=== PATIENT | male | born 1945 | race Caucasian/White ===

== ENCOUNTER 2018-04-11 01:27 | Emergency (ER) | payer OTHER ==
[2018-04-11] MEDS ORDERED: Magnesium Sulfate 2 GM IV* 2 GM/50 ML BAG IVPB ONE (02:17)
[2018-04-11] MEDS ORDERED: Albuterol/Ipratropium NEB.SOL* Albuterol 2.5 MG/Ipratropium 0.5 MG 3 ML INH ONE (02:17)
[2018-04-11] MEDS ORDERED: methylPREDNISolone 125 MG* 2 ML VIAL IV ONE (02:17)
[2018-04-11] MEDS ORDERED: Albuterol 2.5 MG/3 ML NEB.SOL* (0.083%) INH ONE (02:17)
[2018-04-11 03:00] LABS: ABS Basophils 0.2 10^3/ul (0-0.2); ABS Eosinophils 0.9 10^3/ul (0-0.6); ABS Lymphocytes 0.6 10^3/ul (1.0-4.8); ABS Monocytes 0.8 10^3/ul (0-0.8); ABS Neutrophils 4.5 10^3/ul (1.5-7.7); ABS Nucleated RBC 0 10^3/ul; Hematocrit 44 % (42-52); Hemoglobin 14.7 g/dl (14.0-18.0); Lymphocyte % 9.1 % (25-47); Mean Corpuscular HGB Conc 34 g/dl (31-36); Mean Corpuscular Hemoglobin 29 pg (27-31); Mean Corpuscular Volume 87 fL (80-94); Mean Platelet Volume 9.6 um3 (7.4-10.4); Nucleated Red Blood Cells % 0; Platelet Count 201 10^3/ul (150-450); Red Blood Count 5.01 10^6/ul (4.00-5.40); Red Cell Distribution Width 16 % (10.5-15); White Blood Count 7.1 10^3/ul (3.5-10.8)
[2018-04-11] MEDS ORDERED: Albuterol 2.5 MG/3 ML NEB.SOL* (0.083%) INH SCH (03:00)
[2018-04-11 03:05] LABS: INR 0.94 (0.77-1.02)
[2018-04-11 03:15] LABS: EGFR Non-African American 124.8 (>60)
--- NOTE | 2018-04-11 03:35 | ED ---
Shortness of Breath - HPI Summary HPI Summary: This is scribe Daniel Black documenting for attending Shira Rivero M.D. Patient is a 72 y/o M w/ c/o SOB onsetting 1600 on 04/10/18. Patient denies fever or pain. PMHx of right spontaneous pneumothorax, has agent orange in left lung, , COPD, lung CA is reported. On triage, nothing is noted to aggravate/ alleviate Sx. He states he is a current smoker. Home medications and allergies reviewed. I, Dr. Rivero, personally performed the services described in this documentation as scribed in my presence and it is both accurate and complete. - History of Current Complaint Chief Complaint: EDShortnessOfBreath Time Seen by Provider: 04/11/18 02:06 Hx Obtained From: Patient Onset/Duration: Lasting Hours - onset 04/10 at 1600 Current Severity: None - pain is denied Aggrevating Factors: Nothing Alleviating Factors: Nothing - Allergy/Home Medications Allergies/Adverse Reactions: Allergies Allergy/AdvReac Type Severity Reaction Status Date / Time prednisone Allergy Swelling Verified 04/11/18 01:29 Home Medications: Home Medications Aspirin 325 mg PO DAILY 04/11/18 [History Confirmed 04/11/18] Atorvastatin* [Lipitor*] 5 mg PO DAILY 04/11/18 [History Confirmed 04/11/18] Finasteride [Proscar] 5 mg PO DAILY 04/11/18 [History Confirmed 04/11/18] Hydroxychloroquine Sulfate 200 mg PO BID 04/11/18 [History Confirmed 04/11/18] Levothyroxine Sodium [Synthroid] 150 mcg PO DAILY 04/11/18 [History Confirmed ] Tamsulosin HCl 0.4 mg PO DAILY 04/11/18 [History Confirmed 04/11/18] PMH/Surg Hx/FS Hx/Imm Hx Respiratory History: Reports: Hx Asthma, Hx Chronic Obstructive Pulmonary Disease (COPD) Sensory History: Denies: Hx Legally Blind Infectious Disease History: No Infectious Disease History: Denies: Traveled Outside the [place] in Last 30 Days - Family History Known Family History: Negative: Blood Disorder - Social History Alcohol Use: None Substance Use Type: Reports: None Smoking Status (MU): Heavy Every Day Tobacco Smoker Review of Systems Negative: Fever Positive: Shortness Of Breath All Other Systems Reviewed And Are Negative: Yes Physical Exam - Summary Physical Exam Summary: VITAL SIGNS: Reviewed. GENERAL: Patient is a well-developed and nourished male who is lying comfortable in the stretcher. Patient is not in any acute respiratory distress. HEAD AND FACE: No signs of trauma. No ecchymosis, hematomas or skull depressions. No sinus tenderness. EYES: PERRLA, EOMI x 2, No injected conjunctiva, no nystagmus. EARS: Hearing grossly intact. Ear canals and tympanic membranes are within normal limits. MOUTH: Oropharynx within normal limits. NECK: Supple, trachea is midline, no adenopathy, no JVD, no carotid bruit, no c- spine tenderness, neck with full ROM. CHEST: Symmetric, no tenderness at palpation LUNGS: Decreased breath sounds bilaterally, expiratory wheezing bilaterally. No crackles. CVS: Regular rate and rhythm, S1 and S2 present, no murmurs or gallops appreciated. ABDOMEN: Soft, non-tender. No signs of distention. No rebound no guarding, and no masses palpated. Bowel sounds are normal. EXTREMITIES: FROM in all major joints, no edema, no cyanosis or clubbing. NEURO: Alert and oriented x 3. No acute neurological deficits. Speech is normal and follows commands. SKIN: Dry and warm Triage Information Reviewed: Yes Vital Signs On Initial Exam: Initial Vitals Temp Pulse Resp BP Pulse Ox 98.7 F 71 22 168/83 94 04/11/18 01:30 04/11/18 01:30 04/11/18 01:30 04/11/18 01:30 04/11/18 01:30 Vital Signs Reviewed: Yes Diagnostics - Vital Signs Vital Signs Temp Pulse Resp BP Pulse Ox 04/11/18 03:08 60 20 100 04/11/18 03:00 65 20 96 04/11/18 02:21 70 16 147/89 94 04/11/18 02:00 69 21 94 04/11/18 01:52 20 04/11/18 01:51 69 21 166/83 94 04/11/18 01:30 98.7 F 71 22 168/83 94 - Laboratory Lab Results: Lab Results 04/11/18 04/11/18 04/11/18 Range/Units 02:43 02:43 02:43 WBC 7.1 (3.5-10.8) 10^3/ul RBC 5.01 (4.00-5.40) 10^6/ul Hgb 14.7 (14.0-18.0) g/dl Hct 44 (42-52) % MCV 87 (80-94) fL MCH 29 (27-31) pg MCHC 34 (31-36) g/dl RDW 16 H (10.5-15) % Plt Count 201 (150-450) 10^3/ul MPV 9.6 (7.4-10.4) um3 Neut % (Auto) 63.7 (38-83) % Lymph % (Auto) 9.1 L (25-47) % Redwood % (Auto) 12.0 H (0-7) % Eos % (Auto) 13.0 H (0-6) % Baso % (Auto) 2.2 H (0-2) % Absolute Neuts (auto) 4.5 (1.5-7.7) 10^3/ul Absolute Lymphs (auto) 0.6 L (1.0-4.8) 10^3/ul Absolute Monos (auto) 0.8 (0-0.8) 10^3/ul Absolute Eos (auto) 0.9 H (0-0.6) 10^3/ul Absolute Basos (auto) 0.2 (0-0.2) 10^3/ul Absolute Nucleated RBC 0 10^3/ul Nucleated RBC % 0 INR (Anticoag Therapy) 0.94 (0.77-1.02) APTT 36.0 (26.0-36.3) seconds Sodium 141 (135-145) mmol/L Potassium 3.7 (3.5-5.0) mmol/L Chloride 109 (101-111) mmol/L Carbon Dioxide 27 (22-32) mmol/L Anion Gap 5 (2-11) mmol/L BUN 21 (6-24) mg/dL Creatinine 0.63 L (0.67-1.17) mg/dL Est GFR ( Amer) 151.1 (>60) Est GFR (Non-Af Amer) 124.8 (>60) BUN/Creatinine Ratio 33.3 H (8-20) Glucose 101 H (70-100) mg/dL Lactic Acid (0.5-2.0) mmol/L Calcium 9.3 (8.6-10.3) mg/dL Total Bilirubin 0.30 (0.2-1.0) mg/dL AST 16 (13-39) U/L ALT 9 (7-52) U/L Alkaline Phosphatase 67 (34-104) U/L Troponin I 0.00 (<0.04) ng/mL C-Reactive Protein 4.23 (<8.01) mg/L Total Protein 6.9 (6.4-8.9) g/dL Albumin 4.1 (3.2-5.2) g/dL Globulin 2.8 (2-4) g/dL Albumin/Globulin Ratio 1.5 (1-3) 04/11/18 Range/Units 02:43 WBC (3.5-10.8) 10^3/ul RBC (4.00-5.40) 10^6/ul Hgb (14.0-18.0) g/dl Hct (42-52) % MCV (80-94) fL MCH (27-31) pg MCHC (31-36) g/dl RDW (10.5-15) % Plt Count (150-450) 10^3/ul MPV (7.4-10.4) um3 Neut % (Auto) (38-83) % Lymph % (Auto) (25-47) % Redwood % (Auto) (0-7) % Eos % (Auto) (0-6) % Baso % (Auto) (0-2) % Absolute Neuts (auto) (1.5-7.7) 10^3/ul Absolute Lymphs (auto) (1.0-4.8) 10^3/ul Absolute Monos (auto) (0-0.8) 10^3/ul Absolute Eos (auto) (0-0.6) 10^3/ul Absolute Basos (auto) (0-0.2) 10^3/ul Absolute Nucleated RBC 10^3/ul Nucleated RBC % INR (Anticoag Therapy) (0.77-1.02) APTT (26.0-36.3) seconds Sodium (135-145) mmol/L Potassium (3.5-5.0) mmol/L Chloride (101-111) mmol/L Carbon Dioxide (22-32) mmol/L Anion Gap (2-11) mmol/L BUN (6-24) mg/dL Creatinine (0.67-1.17) mg/dL Est GFR ( Amer) (>60) Est GFR (Non-Af Amer) (>60) BUN/Creatinine Ratio (8-20) Glucose (70-100) mg/dL Lactic Acid 0.7 (0.5-2.0) mmol/L Calcium (8.6-10.3) mg/dL Total Bilirubin (0.2-1.0) mg/dL AST (13-39) U/L ALT (7-52) U/L Alkaline Phosphatase (34-104) U/L Troponin I (<0.04) ng/mL C-Reactive Protein (<8.01) mg/L Total Protein (6.4-8.9) g/dL Albumin (3.2-5.2) g/dL Globulin (2-4) g/dL Albumin/Globulin Ratio (1-3) Result Diagrams: 04/11/18 02:43 04/11/18 02:43 Lab Statement: Any lab studies that have been ordered have been reviewed, and results considered in the medical decision making process. - Radiology CXR Xray Interpretation: No Acute Changes Radiology Interpretation Completed By: ED Physician - No acute processes, pending official report. - EKG 0136 Cardiac Rate: NL - Rate of 75 BPM EKG Rhythm: Sinus Rhythm EKG Interpretation: Normal axis. Normal interval. No ischemic changes. Re-Evaluation - Re-Evaluation First Eval Re-Evaluation Time: 03:53 Change: Improved Comment: Patient Sx have improved and he will be discharged to home. Follow up plan of seeing PCP 1-2 days was agreed upon by patient. Course/Dx - Course Assessment/Plan: Patient is a 72 y/o M w/ c/o SOB onsetting 1600 on 04/10/18. Patient denies fever or pain. PMHx of right spontaneous pneumothorax, has agent orange in left lung, , COPD, lung CA is reported. On triage, nothing is noted to aggravate/alleviate Sx. He states he is a current smoker. Home medications and allergies reviewed. Physical exam showed Decreased breath sounds bilaterally , expiratory wheezing bilaterally CXR was negative, EKG normal. During ED course , patient was given methylprednisolone sodium succinate 125 mg IV ED ONCE, magnesium sulfate 2 gm in 50 mls @ 50 mls/hr IVPB ED ONCE, albuterol/ Ipratropium 1 neb INH ED ONCE, albuterol 2.5 mg INH ED ONCE. Labs had no abnormal findings. Patient reports feeling better at 0353. He was discharged to home with Dx of COPD exacerbation. Patient was prescribed Albuterol HFA INHALER * [Ventolin HFA Inhaler*] 2 puff INH Q4H PRN #1 mdi PRN Reason: Sob/Wheezing, predniSONE TAB* [Deltasone TAB*] 50 mg PO DAILY #5 tab, Spiriva Inhaler DEVICE* [Tiotropium Inhaler DEVICE*] 0 inh INH BID #1 device. He will follow up with PCP in 1-2 days. He is agreeable with plan. Discharge - Sign-Out/Discharge Documenting (check all that apply): Patient Departure - Discharge Plan Condition: Stable Disposition: HOME Prescriptions: Albuterol HFA INHALER* [Ventolin HFA Inhaler*] 2 puff INH Q4H PRN #1 mdi PRN Reason: Sob/Wheezing predniSONE TAB* [Deltasone TAB*] 50 mg PO DAILY #5 tab Spiriva Inhaler DEVICE* [Tiotropium Inhaler DEVICE*] 0 inh INH BID #1 device Patient Education Materials: COPD (Chronic Obstructive Pulmonary Disease) (ED) Referrals: Marlyn Arnett [Primary Care Provider] - 1 Day Additional Instructions: Follow up with primary care provider tomorrow. Return to ED for any new or worsening symptoms. - Billing Disposition and Condition Condition: STABLE Disposition: Home
[2018-04-11 03:50] VITALS: BP 154/86
[2018-04-11] MEDS ORDERED: Albuterol HFA INHALER* 8 gm MDI INH SCH (04:00)
--- NOTE | 2018-04-11 08:02 | RAD ---
INDICATION: Shortness of breath. COMPARISON: None. TECHNIQUE: Single AP portable view of the chest was obtained. FINDINGS: Image quality is compromised due to the relative inferiority of a portable chest x-ray. The heart and mediastinum exhibit normal size and contour. The lungs appear hyperaerated in the AP view. There is a small degree of bibasilar costophrenic angle blunting which could indicate small pleural effusions. Otherwise the lungs are grossly clear. Visualized bones are normal for the patient's age. IMPRESSION: Appearance of chest x-ray on portable AP view only could be consistent with chronic obstructive pulmonary disease, possibly with trace bibasilar pleural effusions. R2
== END 2018-04-11 03:49 | disposition home or self-care (01) ==
LOC: ED 01:27
DX: J44.1 Chronic obstructive pulmonary disease with (acute) exacerbation (principal); F17.200 Nicotine dependence, unspecified, uncomplicated; Z77.098 Contact with and (suspected) exposure to other hazardous, chiefly nonmedicinal, chemicals; Z85.118 Personal history of other malignant neoplasm of bronchus and lung; Z87.09 Personal history of other diseases of the respiratory system
CPT/HCPCS: 36415; 71045; 80053; 83605; 84484; 85025; 85610; 85730; 86140; 87040; 93005; 96374; 96375; 99283; A9270-GY; J2930; J3475

== ENCOUNTER 2018-04-23 17:58 | Inpatient (IN) | payer MEDICARE, OTHER ==
[2018-04-23] MEDS ORDERED: Albuterol/Ipratropium NEB.SOL* Albuterol 2.5 MG/Ipratropium 0.5 MG 3 ML ONE (18:13)
--- NOTE | 2018-04-23 18:15 | ED ---
Shortness of Breath - HPI Summary HPI Summary: Pt seen immediately upon arrival due to SOB. The pt is a 72 y/o male with a PMHx of Lung CA BIBA to [facility] c/o SOB since 04/17 worsened 17:[address] Rivero saw the pt at [facility] on 04/11/2018 for SOB and pt was DC'd home on 5 d course of prednisone (which is listed as an allergy upon arrival, and changed at [facility] today). The pt was diagnosed with lung CA in July 2017 at the [facility] and had a pneumothorax 5 years ago. He receives his routine medical care from the [place]. Had to go to [facility] for radiation for his lung CA from the [place]. Pt is not on home O2 and does not have home nebulizer. Does have inhalers. Spiriva was prescribed by Dr. Rivero on 04/11/18. He notes SOB, dyspnea, and diaphoresis but denies TAMAYO and CP. The pt is a heavy smoker and continues to smoke. Pt was exposed to [place] in [facility]. Pt lives with his son. Pt's son and daughter are present upon admission to the ED. Pt is questioned about code status with son and daughter present and he wishes to remain a full code. . He was given 2 Duonebs prior to arrival via EMS and remains SOB. Pt did not tolerate vapotherm, tried by respiratory therapy, also present immediately upon patient arrival. Home Medications Medication Instructions Recorded Confirmed Type Albuterol HFA INHALER* [Ventolin 2 puff INH Q4H PRN #1 mdi 04/11/18 Rx HFA Inhaler*] Aspirin 325 mg PO DAILY 04/11/18 04/11/18 History Atorvastatin* [Lipitor*] 5 mg PO DAILY 04/11/18 04/11/18 History Finasteride [Proscar] 5 mg PO DAILY 04/11/18 04/11/18 History Hydroxychloroquine Sulfate 200 mg PO BID 04/11/18 04/11/18 History Levothyroxine Sodium [Synthroid] 150 mcg PO DAILY 04/11/18 04/11/18 History Spiriva Inhaler DEVICE* 0 inh INH BID #1 device 04/11/18 Rx [Tiotropium Inhaler DEVICE*] Tamsulosin HCl 0.4 mg PO DAILY 04/11/18 04/11/18 History predniSONE TAB* [Deltasone TAB*] 50 mg PO DAILY #5 tab 04/11/18 Rx Vital Signs: Temp Pulse Resp BP Pulse Ox 97.9 F 85 30 178/93 98 04/23/18 18:01 04/23/18 18:01 04/23/18 18:01 04/23/18 18:01 04/23/18 18:01 - History of Current Complaint Chief Complaint: EDShortnessOfBreath Time Seen by Provider: 04/23/18 18:03 Hx Obtained From: Patient, Family/[employer] - pt's son and daughter, EMS Onset/Duration: Lasting Days - 6 days, Still Present, Worse Since - 17:15 today Timing: Constant Current Severity: Severe Dyspnea At: Rest Aggrevating Factors: Movement Alleviating Factors: Other - duoneb x 2 Associated Signs & Symptoms: Negative - TAMAYO, CP, Cough (Nonproductive), Diaphoresis - Risk Factors Pulmonary Embolism: Malignancy - Allergy/Home Medications Allergies/Adverse Reactions: Allergies Allergy/AdvReac Type Severity Reaction Status Date / Time amoxicillin AdvReac Joint Pain Verified 04/23/18 21:47 Home Medications: Home Medications Levothyroxine TAB* [Synthorid 112 MCG TAB*] 112 mcg PO DAILY 04/24/18 [History Confirmed 04/24/18] PMH/Surg Hx/FS Hx/Imm Hx Previously Healthy: No Endocrine/Hematology History: Reports: Hx Thyroid Disease Respiratory History: Reports: Hx Asthma, Hx Chronic Obstructive Pulmonary Disease (COPD), Hx Lung Cancer - Jul 2017, s/p radiation at [facility] , Other Respiratory Problems/Disorders - Pneumothorax - 5 years ago; still smokes Apr 2018 Sensory History: Denies: Hx Legally Blind Opthamlomology History: Denies: Hx Legally Blind - Cancer History Cancer Type, Location and Year: Lung CA diagnosed in July 2017 at the [facility]. Hx Radiation Therapy: Yes Hx Palliative Cancer Treatment: No - Surgical History Surgery Procedure, Year, and Place: thyroidectomy. appendectomy Infectious Disease History: No Infectious Disease History: Denies: Traveled Outside the [place] in Last 30 Days - Family History Known Family History: Positive: Other - Colon CA-mother Negative: Cardiac Disease, Blood Disorder - Social History Occupation: Retired Lives: With Family Alcohol Use: None Substance Use Type: Reports: None Smoking Status (MU): Heavy Every Day Tobacco Smoker Type: Cigarettes Review of Systems Positive: Skin Diaphoresis Negative: Chest Pain Positive: Shortness Of Breath, Other - Positive: Dyspnea at rest Gastrointestinal: Negative Musculoskeletal: Negative Skin: Negative Negative: Headache Psychological: Normal All Other Systems Reviewed And Are Negative: Yes Physical Exam - Summary Physical Exam Summary: Appearance: ill-appearing, no pain distress, thin, COPD habitus, pursed lip breathing, access muscs of respiration, speaks in short bursts Skin: Warm, color reflects adequate perfusion, dry Head: Normal Head/Face inspection, atraumatic Eyes: Conjunctiva clear ENT: Normal inspection, pharynx clear Neck: Supple, no nodes, no JVD Respiratory: decreased BS throughout, retractions, abdominal muscs used for respiration, moderate respiratory distress Cardio: RRR, No murmur, pulses normal, brisk capillary refill Abdomen: Soft, nontender Bowel sounds: Present Musculoskeletal: Strength Intact/ROM intact, no calf tenderness, no edema. Psychological: Normal Neuro: Alert, muscle tone normal, no focal deficit Triage Information Reviewed: Yes Vital Signs On Initial Exam: Initial Vitals Temp Pulse Resp BP Pulse Ox 97.9 F 85 30 178/93 92 04/23/18 18:01 04/23/18 18:01 04/23/18 18:01 04/23/18 18:01 04/23/18 18:01 Vital Signs Reviewed: Yes Diagnostics - Vital Signs Vital Signs Temp Pulse Resp BP Pulse Ox 04/23/18 18:01 97.9 F 85 30 178/93 92 - Laboratory Result Diagrams: 04/23/18 18:40 04/24/18 06:19 Lab Statement: Any lab studies that have been ordered have been reviewed, and results considered in the medical decision making process. - Radiology CXR Radiology Interpretation Completed By: ED Physician - no acute change compared with 04/11/18 - EKG 1841 Cardiac Rate: NL EKG Rhythm: Sinus Rhythm ST Segment: Non-Specific Ectopy: None EKG Interpretation: nl AVIVCT, nl QTC, no acute changes EKG Comparison: No Significant Change - c/w 04/11/18 Re-Evaluation - Re-Evaluation First Eval Re-Evaluation Time: 20:15 Change: Unchanged Comment: Pt still with pursed lip breathing and accessory muscs of respiration despite 3 duonebs total, and supplemental O2 (pt prefers face mask, declines vapotherm) and IV steroids. O2 DC'd and O2 sats decrease from 99 to 88 in less than 5 minutes. O2 re-applied. Pt to be admitted. Course/Dx - Course Course Of Treatment: 72 yo M with hx COPD, agent orange exposure, still smokes, lung cancer [facility] [facility] with acute SOB, and has no improvement with 3 duonebs, IV steroids and oxygen. Pt has no home O2 or nebulizer. Is admitted for further evaluation and treatment. No sign of sepsis or pneumonia. Troponin is elevated, but EKG is unchanged and pt has a twinge of right sided chest pain that corresponds with the location of his cancer, likely demand ischemia. Dr. Rodríguez accepts for admission. - Diagnoses Differential Diagnosis/HQI/PQRI: Positive: Bronchitis, Chest Wall Pain, COPD Exacerbation, MD, Pneumonia, Pneumothorax, Pulmonary Embolism, Pulmonary Edema Provider Diagnoses: COPD exacerbation, Elevated troponin, Lung cancer, Acute and chronic respiratory failure with hypoxia, Tobacco abuse disorder - Physician Notifications Discussed Care of Patient With: Zach Rodríguez - Hospitalist Time Discussed With Above Provider: 20:45 Instructed by Provider To: Other - accepts for admission Discharge - Sign-Out/Discharge Documenting (check all that apply): Patient Departure - admit - Discharge Plan Condition: Improved Disposition: ADMITTED TO [facility] - Billing Disposition and Condition Condition: IMPROVED Disposition: Admitted to [facility] - Attestation Statements Document Initiated by Scribe: Yes Documenting Scribe: Jihan Gonzalez Provider For Whom Tgibcristela is Documenting (Include Credential): Nasrin Reynoso MD Scribe Attestation: Jihan Blanco , scribed for Nasrin Reynoso MD on 04/26/18 at 1603. Scribe Documentation Reviewed: Yes Provider Attestation: The documentation as recorded by the Jihan rosario accurately reflects the service I personally performed and the decisions made by me, Nasrin Reynoso MD
[2018-04-23] MEDS ORDERED: Albuterol/Ipratropium NEB.SOL* Albuterol 2.5 MG/Ipratropium 0.5 MG 3 ML INH ONE (18:16)
[2018-04-23] MEDS ORDERED: methylPREDNISolone 125 MG* 2 ML VIAL IV ONE (18:40)
[2018-04-23 18:56] LABS: ABS Basophils 0.2 10^3/ul (0-0.2); ABS Eosinophils 0.9 10^3/ul (0-0.6); ABS Lymphocytes 0.8 10^3/ul (1.0-4.8); ABS Monocytes 0.9 10^3/ul (0-0.8); ABS Neutrophils 7.7 10^3/ul (1.5-7.7); ABS Nucleated RBC 0 10^3/ul; Eosinophil % 8.7 % (0-6); Hematocrit 46 % (42-52); Lymphocyte % 7.4 % (25-47); Mean Corpuscular HGB Conc 33 g/dl (31-36); Mean Corpuscular Hemoglobin 29 pg (27-31); Mean Corpuscular Volume 88 fL (80-94); Mean Platelet Volume 9.6 um3 (7.4-10.4); Nucleated Red Blood Cells % 0.1; Platelet Count 203 10^3/ul (150-450); Red Blood Count 5.16 10^6/ul (4.00-5.40); Red Cell Distribution Width 16 % (10.5-15); White Blood Count 10.4 10^3/ul (3.5-10.8)
[2018-04-23 19:05] LABS: INR 0.95 (0.77-1.02)
[2018-04-23 19:09] LABS: EGFR Non-African American 112.4 (>60)
--- NOTE | 2018-04-23 21:12 | HP ---
H&P (Free Text) History and Physical: PCP: Jian Arnett Date/Time: 04/23/20182044 CC: SOB HPI: Mr Thomson is a 72YO male HX COPD, lung CA s/p radioTX, HLD, hypothyroidism, & BPH who was seen last Monday at [facility] for COPD and released. He reports ongoing wheeze until today when around 1615 he was driving to eat and develop rapidly worsening SOB. He has had a cough productive of thick pale yellow phlegm with darker brown areas, but no blood. He denies F/C, sweats, hemotysis, or other issues. He has felt a 'twinge' of chest discomfort over the R anterior chest correlating with the location of his lung tumor. This has had no increased SOB, sweats, N/V, or other issues associated. PMedHx lung CA s/p radioTX COPD HLD BPH hypothyroidism Ambulatory Orders Nursing to reconcile. Albuterol HFA INHALER* [Ventolin HFA Inhaler*] 2 puff INH Q4H PRN #1 mdi Atorvastatin* [Lipitor*] 5 mg PO DAILY 04/11/18 Finasteride [Proscar] 5 mg PO DAILY 04/11/18 Hydroxychloroquine Sulfate 200 mg PO BID 04/11/18 Levothyroxine Sodium [Synthroid] 115 mcg PO DAILY 04/11/18 Spiriva Inhaler DEVICE* [Tiotropium Inhaler DEVICE*] 0 inh INH BID #1 device 04/21 Tamsulosin HCl 0.4 mg PO DAILY 04/11/18 Allergies amoxicillin Adverse Reaction (Verified 04/23/18 21:47) Joint Pain PSurgHx thryroidectomy for hyperthyroidism appendectomy planned cataract extraction SocHx: 1PPD cigarettes for >50PYHX, no alcohol, or recreational drugs; , lives with his son; full code status FamHx: Mother: passed at 84 2nd colon CA; Father: passed at 79 of unknown cause ROS: as above, otherwise reviewed and all were negative vitals: Vital Signs Temp 36.6 C 04/23/18 18:01 Pulse 96 04/23/18 20:36 Resp 23 04/23/18 20:36 BP 148/77 04/23/18 20:36 Pulse Ox 90 04/23/18 20:36 Intake & Output 04/22/18 04/23/18 04/23/18 23:59 11:59 23:59 Weight 61.235 kg Constitutional: NAD, normally developed, well-nourished white male HEENM: atraumatic; sclera/conjunctiva: anicteric/clear; hearing: clinically intact; oropharynx: clear, mucosa tacky Neck: soft tissue: non-tender; thyroid: normal Pulmonary: diminished B with prominent mid- to end- expiratory and feliciano- inspiratory wheeze, fair to poor aeration, no accessory muscle use CV: RR/RR, normal S1S2, no carotid bruit, no jugular venous distention, 2+ B DP/ PT, no edema Abdominal: soft, non-distended, non-tender, no rebound/guarding/rigidity, normoactive bowel sounds, no hepatosplenomegaly or masses, no costovertebral angle tenderness Musculoskeletal: general: grossly intact, non-tender Integumental: normal appearance and texture of exposed skin Psychiatric orientation: AA&O to PPS affect: calm mood: cooperative eye contact: fair to poor content: reliable responses: timely insight: fair Testing: Lab Results 04/23/18 04/23/18 04/23/18 Range/Units 18:27 18:40 18:40 WBC 10.4 (3.5-10.8) 10^3/ul RBC 5.16 (4.00-5.40) 10^6/ul Hgb 15.0 (14.0-18.0) g/dl Hct 46 (42-52) % MCV 88 (80-94) fL MCH 29 (27-31) pg MCHC 33 (31-36) g/dl RDW 16 H (10.5-15) % Plt Count 203 (150-450) 10^3/ul MPV 9.6 (7.4-10.4) um3 Neut % (Auto) 74.2 (38-83) % Lymph % (Auto) 7.4 L (25-47) % [place] % (Auto) 8.2 H (0-7) % Eos % (Auto) 8.7 H (0-6) % Baso % (Auto) 1.5 (0-2) % Absolute Neuts (auto) 7.7 (1.5-7.7) 10^3/ul Absolute Lymphs (auto) 0.8 L (1.0-4.8) 10^3/ul Absolute Monos (auto) 0.9 H (0-0.8) 10^3/ul Absolute Eos (auto) 0.9 H (0-0.6) 10^3/ul Absolute Basos (auto) 0.2 (0-0.2) 10^3/ul Absolute Nucleated RBC 0 10^3/ul Nucleated RBC % 0.1 INR (Anticoag Therapy) 0.95 (0.77-1.02) APTT 30.9 (26.0-36.3) seconds D-Dimer, Quantitative < 200 (Less Than 230) ng/mL ABG pH 7.33 L (7.35-7.45) ABG pCO2 51 H (35-45) mmHg ABG pO2 155 H (80-100) mmHg ABG HCO3 24.9 (19-31) mmol/L ABG O2 Saturation 99.3 H (95-98) % ABG Base Excess 0.1 (-2.0-2.0) Sodium (135-145) mmol/L Potassium (3.5-5.0) mmol/L Chloride (101-111) mmol/L Carbon Dioxide (22-32) mmol/L Anion Gap (2-11) mmol/L BUN (6-24) mg/dL Creatinine (0.67-1.17) mg/dL Est GFR ( Amer) (>60) Est GFR (Non-Af Amer) (>60) BUN/Creatinine Ratio (8-20) Glucose (70-100) mg/dL Lactic Acid (0.5-2.0) mmol/L Calcium (8.6-10.3) mg/dL Total Bilirubin (0.2-1.0) mg/dL AST (13-39) U/L ALT (7-52) U/L Alkaline Phosphatase (34-104) U/L Total Creatine Kinase (10-223) U/L CK-MB (CK-2) (0.6-6.3) ng/mL Troponin I (<0.04) ng/mL C-Reactive Protein (<8.01) mg/L B-Natriuretic Peptide ( - 100) pg/mL Total Protein (6.4-8.9) g/dL Albumin (3.2-5.2) g/dL Globulin (2-4) g/dL Albumin/Globulin Ratio (1-3) Procalcitonin (<0.6) ng/mL 04/23/18 04/23/18 04/23/18 Range/Units 18:40 18:40 18:40 WBC (3.5-10.8) 10^3/ul RBC (4.00-5.40) 10^6/ul Hgb (14.0-18.0) g/dl Hct (42-52) % MCV (80-94) fL MCH (27-31) pg MCHC (31-36) g/dl RDW (10.5-15) % Plt Count (150-450) 10^3/ul MPV (7.4-10.4) um3 Neut % (Auto) (38-83) % Lymph % (Auto) (25-47) % [place] % (Auto) (0-7) % Eos % (Auto) (0-6) % Baso % (Auto) (0-2) % Absolute Neuts (auto) (1.5-7.7) 10^3/ul Absolute Lymphs (auto) (1.0-4.8) 10^3/ul Absolute Monos (auto) (0-0.8) 10^3/ul Absolute Eos (auto) (0-0.6) 10^3/ul Absolute Basos (auto) (0-0.2) 10^3/ul Absolute Nucleated RBC 10^3/ul Nucleated RBC % INR (Anticoag Therapy) (0.77-1.02) APTT (26.0-36.3) seconds D-Dimer, Quantitative (Less Than 230) ng/mL ABG pH (7.35-7.45) ABG pCO2 (35-45) mmHg ABG pO2 (80-100) mmHg ABG HCO3 (19-31) mmol/L ABG O2 Saturation (95-98) % ABG Base Excess (-2.0-2.0) Sodium 143 (135-145) mmol/L Potassium 3.8 (3.5-5.0) mmol/L Chloride 108 (101-111) mmol/L Carbon Dioxide 26 (22-32) mmol/L Anion Gap 9 (2-11) mmol/L BUN 13 (6-24) mg/dL Creatinine 0.69 (0.67-1.17) mg/dL Est GFR ( Amer) 136.0 (>60) Est GFR (Non-Af Amer) 112.4 (>60) BUN/Creatinine Ratio 18.8 (8-20) Glucose 108 H (70-100) mg/dL Lactic Acid 1.3 (0.5-2.0) mmol/L Calcium 9.2 (8.6-10.3) mg/dL Total Bilirubin 0.30 (0.2-1.0) mg/dL AST 17 (13-39) U/L ALT 10 (7-52) U/L Alkaline Phosphatase 69 (34-104) U/L Total Creatine Kinase 188 (10-223) U/L CK-MB (CK-2) 4.7 (0.6-6.3) ng/mL Troponin I 0.04 H* (<0.04) ng/mL C-Reactive Protein 3.27 (<8.01) mg/L B-Natriuretic Peptide 26 ( - 100) pg/mL Total Protein 7.0 (6.4-8.9) g/dL Albumin 4.0 (3.2-5.2) g/dL Globulin 3.0 (2-4) g/dL Albumin/Globulin Ratio 1.3 (1-3) Procalcitonin (<0.6) ng/mL 04/23/18 Range/Units 18:40 WBC (3.5-10.8) 10^3/ul RBC (4.00-5.40) 10^6/ul Hgb (14.0-18.0) g/dl Hct (42-52) % MCV (80-94) fL MCH (27-31) pg MCHC (31-36) g/dl RDW (10.5-15) % Plt Count (150-450) 10^3/ul MPV (7.4-10.4) um3 Neut % (Auto) (38-83) % Lymph % (Auto) (25-47) % [place] % (Auto) (0-7) % Eos % (Auto) (0-6) % Baso % (Auto) (0-2) % Absolute Neuts (auto) (1.5-7.7) 10^3/ul Absolute Lymphs (auto) (1.0-4.8) 10^3/ul Absolute Monos (auto) (0-0.8) 10^3/ul Absolute Eos (auto) (0-0.6) 10^3/ul Absolute Basos (auto) (0-0.2) 10^3/ul Absolute Nucleated RBC 10^3/ul Nucleated RBC % INR (Anticoag Therapy) (0.77-1.02) APTT (26.0-36.3) seconds D-Dimer, Quantitative (Less Than 230) ng/mL ABG pH (7.35-7.45) ABG pCO2 (35-45) mmHg ABG pO2 (80-100) mmHg ABG HCO3 (19-31) mmol/L ABG O2 Saturation (95-98) % ABG Base Excess (-2.0-2.0) Sodium (135-145) mmol/L Potassium (3.5-5.0) mmol/L Chloride (101-111) mmol/L Carbon Dioxide (22-32) mmol/L Anion Gap (2-11) mmol/L BUN (6-24) mg/dL Creatinine (0.67-1.17) mg/dL Est GFR ( Amer) (>60) Est GFR (Non-Af Amer) (>60) BUN/Creatinine Ratio (8-20) Glucose (70-100) mg/dL Lactic Acid (0.5-2.0) mmol/L Calcium (8.6-10.3) mg/dL Total Bilirubin (0.2-1.0) mg/dL AST (13-39) U/L ALT (7-52) U/L Alkaline Phosphatase (34-104) U/L Total Creatine Kinase (10-223) U/L CK-MB (CK-2) (0.6-6.3) ng/mL Troponin I (<0.04) ng/mL C-Reactive Protein (<8.01) mg/L B-Natriuretic Peptide ( - 100) pg/mL Total Protein (6.4-8.9) g/dL Albumin (3.2-5.2) g/dL Globulin (2-4) g/dL Albumin/Globulin Ratio (1-3) Procalcitonin < 0.1 (<0.6) ng/mL ECG, personally reviewed: NSR rate 93, no ischemia CXR, personally reviewed: stigmata of COPD, no acute process; unchanged compared to 04/11/2018 Impression: 72M presenting with COPD exacerbation DIAGNOSIS & PLAN Primary COPD exacerbation : albuterol : mometasone/formoterol : tiotropium : IV methylprednisolone : incentive spirometry : blood & sputum CXs : supplemental oxygen : smoking cessation, mod-high motivation : nicotine replacement : supportive care mildly elevated troponin : suspect 2nd troponin leak from demand : re-check at 6hours, telemetry Secondary lung CA s/p radioTX : continue outpatient surveillance HLD : continue atorvastatin BPH : continue finasteride & tamsulosin hypothyroidism : continue levothyroxine Admission Rational: Inpatient as without the above interventions the risk of impending adverse outcome is unacceptably high; inappropriate for the outpatient setting DVTp: SCDs & heparin SQ Code Status: full HCP: daughter, Kaci Schulte
[2018-04-23] MEDS ORDERED: Mouth Piece, Nicotine* 1 EACH CARTRIDGE INH PRN (22:08)
[2018-04-23] MEDS ORDERED: Albuterol 2.5 MG/3 ML NEB.SOL* (0.083%) INH PRN (22:08)
[2018-04-23] MEDS ORDERED: Acetaminophen TAB* 325 MG PO PRN (22:08)
[2018-04-23] MEDS ORDERED: Nicotine Inhaler* 10 MG AMP INH PRN (22:08)
[2018-04-23] MEDS ORDERED: Melatonin 3 MG TAB PO PRN (22:08)
[2018-04-23] MEDS ORDERED: Ondansetron ODT TAB* 4 MG PO PRN (22:10)
[2018-04-23] MEDS ORDERED: traMADol TAB* 50 MG PO PRN (22:10)
[2018-04-23] MEDS ORDERED: NS 0.9% 1000 ML* 1,000 ML IV SCH (22:15)
[2018-04-23] MEDS ORDERED: Spiriva Inhaler DEVICE* 1 EACH DEVICE SCH (23:00)
[2018-04-24] MEDS ORDERED: Benzonatate CAP* 100 MG PO PRN (01:24)
[2018-04-24] MEDS: Albuterol 2.5 MG/3 ML NEB.SOL* (0.083%) INH SCH ×4 (01:28→20:32)
[2018-04-24 01:40] LABS: EGFR Non-African American 140.1 (>60)
[2018-04-24] MEDS ORDERED: Albuterol 2.5 MG/3 ML NEB.SOL* (0.083%) INH PRN (04:30)
[2018-04-24] MEDS ORDERED: Morphine VIAL* 4 MG/ML VIAL (1 ml vial) IV PRN (04:54)
[2018-04-24] MEDS: Omeprazole CAP* 20 MG PO SCH (05:16)
[2018-04-24] MEDS: Heparin VIAL(*) 5000 UNITS/ML VIAL (FIVE THOUSAND) SUBCUT SCH ×3 (05:16→21:51)
[2018-04-24] MEDS ORDERED: methylPREDNISolone SOD 40 MG* 1 ML VIAL IV SCH (06:00)
[2018-04-24] MEDS ORDERED: LEVOTHYROXINE PO SCH (06:00)
--- NOTE | 2018-04-24 07:24 | RAD ---
INDICATION: Shortness of breath. COMPARISON: Comparison is made with a prior chest x-ray study from April 11, 2018. TECHNIQUE: A portable view of the chest was obtained. FINDINGS: Cardiac and mediastinal contours appear to be within normal limits. The lungs are hyperinflated and grossly clear. No pleural effusion is seen. IMPRESSION: FINDINGS CONSISTENT WITH COPD, NO EVIDENCE FOR ACUTE FINDING. R0
[2018-04-24] MEDS: Tiotropium CAP.INH* CAP.INH/18 MCG (USE ORDER SET !) INH SCH (08:32)
[2018-04-24] MEDS: Mometasone/Formoter 200/5 MDI INH SCH ×2 (08:33→20:33)
[2018-04-24] MEDS: Hydroxychloroquine TAB* 200 MG PO SCH ×2 (10:07→21:50)
[2018-04-24] MEDS: Tamsulosin CAP* 0.4 MG PO SCH (10:07)
[2018-04-24] MEDS: Atorvastatin* 10 MG TAB PO SCH (10:07)
[2018-04-24] MEDS: Levothyroxine TAB* 112 MCG TAB PO SCH (10:07)
[2018-04-24] MEDS: Finasteride TAB* 5 MG PO SCH (10:07)
[2018-04-24] MEDS: Docusate CAP* 100 MG PO SCH ×2 (10:07→21:50)
--- NOTE | 2018-04-24 13:02 | PN ---
Subjective Date of Service: 04/24/18 Interval History: Patient seen and examined at bedside. Denies fever, chills, shortness of breath (at baseline), chest discomfort, N/V/D. Pt states that he is feeling much better then he was yesterday when he came in. He states that over the last week he has been using his nebulizer up to every 1.5 hours. Tele: Sinus rhythm, rate 60-80's Family History: Unchanged from Admission Social History: Unchanged from Admission Past Medical History: Unchanged from Admission Objective Active Medications: Acetaminophen (Tylenol Tab*) 650 mg PO Q6H PRN Reason: FEVER/PAIN Albuterol (Ventolin 2.5 Mg/3 Ml Neb.Rafaela*) 2.5 mg INH RT.[id number] AWAKE JOSE Albuterol (Ventolin 2.5 Mg/3 Ml Neb.Rafaela*) 2.5 mg INH Q4H PRN Reason: SOB/ WHEEZING Atorvastatin Calcium (Lipitor*) 5 mg PO DAILY JOSE Benzonatate (Tessalon Cap*) 200 mg PO Q8H PRN Reason: COUGH Device (Nicotine Mouth Piece*) 1 each INH .USE WITH NICOTROL PRN Reason: CRAVING Device (Tiotropium Inhaler Device*) 1 each .SEE ORDER .USE w/ SPIRIVA CAPS JOSE Docusate Sodium (Colace Cap*) 200 mg PO BID JOSE Finasteride (Proscar Tab*) 5 mg PO DAILY JOSE Heparin Sodium (Porcine) (Heparin Vial(*)) 5,000 units SUBCUT Q8HR JOSE Hydroxychloroquine Sulfate (Plaquenil Tab*) 200 mg PO BID JOSE Sodium Chloride (Ns 0.9% 1000 Ml*) 1,000 mls @ 50 mls/hr IV PER RATE JOSE Levothyroxine Sodium (Synthroid Tab*) 112 mcg PO 0600 JOSE Melatonin (Melatonin) 3 mg PO BEDTIME PRN; Protocol Reason: Sleep Methylprednisolone Sodium Succinate (Solu-Medrol 40 Mg) 40 mg IV Q8H JOSE Mometasone Furoate/Formoterol Fumar (Dulera 200/5 Mdi*) 2 puff INH BID JOSE Morphine Sulfate (Morphine Vial*) 2 mg IV Q2H PRN Reason: air hunger Nicotine (Nicotine Inhaler*) 10 mg INH Q2H PRN Reason: CRAVING Omeprazole (Prilosec Cap*) 20 mg PO DAILY@0600 [facility] Ondansetron HCl (Zofran Odt Tab*) 4 mg PO Q6H PRN Reason: n/v Tamsulosin HCl (Flomax Cap*) 0.4 mg PO DAILY [facility] Tiotropium [place] (Spiriva Cap.Inh*) 1 cap INH DAILY [facility] Tramadol HCl (Ultram*) 50 mg PO Q6H PRN Reason: PAIN Vital Signs - 8 hr 04/24/18 04/24/18 04/24/18 05:14 07:11 07:38 Temperature 98.0 F Pulse Rate 57 Respiratory 22 18 20 Rate Blood Pressure 129/67 (mmHg) O2 Sat by Pulse 100 Oximetry 04/24/18 04/24/18 04/24/18 08:34 09:00 11:27 Temperature 98.9 F Pulse Rate 78 70 Respiratory 14 20 20 Rate Blood Pressure 128/77 (mmHg) O2 Sat by Pulse 90 99 Oximetry Oxygen Devices in Use Now: OxyMask - 3L Appearance: NAD, sitting up in bed Ears/Nose/Mouth/Throat: Mucous Membranes Moist Respiratory: Symmetrical Chest Expansion and Respiratory Effort, Clear to Auscultation - , diminished Cardiovascular: NL Sounds; No Murmurs; No JVD, RRR Abdominal: NL Sounds; No Tenderness; No Distention Extremities: No Edema Skin: No Rash or Ulcers Neurological: Alert and Oriented x 3, NL Muscle Strength and Tone Lines/Tubes/Other Access: Clean, Dry and Intact Peripheral IV - site benign Nutrition: Taking PO's Result Diagrams: 04/23/18 18:40 04/24/18 06:19 Assess/Plan/Problems-Billing Assessment: Mr. Edwards is a 72 yo male with PMH significant for lung cancer, COPD, HLD, BPH and hypothyroidism who presented to the emergency room with complaints of shortness of breath. - Patient Problems (1) COPD exacerbation Code(s): J44.1 - CHRONIC OBSTRUCTIVE PULMONARY DISEASE W (ACUTE) EXACERBATION SNOMED Code(s): 773867039 Comment: - Afebrile, no lekocytosis - Blood cultures, pending - Sputum culture, pending - Supplemental O2 PRN, will try to wean - Continue supportive care and nicotine replacement - Continue Dulera, albuterol, spiriva, methylprednisone (2) Elevated troponin Code(s): R74.8 - ABNORMAL LEVELS OF OTHER SERUM ENZYMES SNOMED Code(s): 297543358 Comment: - Suspect demand ischemia in the setting of COPD exacerbation - Troponin 0.04, 0.11, 0.07 - Denies chest discomfort - No events on tele - EKG with no signs of acute ischemia - Consider outpatient cardiac stress test once recovered from COPD exacerbation (3) Lung cancer Code(s): C34.90 - MALIGNANT NEOPLASM OF UNSP PART OF UNSP BRONCHUS OR LUNG SNOMED Code(s): 140791423 Comment: - S/P radiation - Continue outpatient surveillance (4) HLD (hyperlipidemia) Code(s): E78.5 - HYPERLIPIDEMIA, UNSPECIFIED SNOMED Code(s): 52674288 Comment: - Continue atorvastatin (5) BPH (benign prostatic hyperplasia) Code(s): N40.0 - BENIGN PROSTATIC HYPERPLASIA WITHOUT LOWER URINRY TRACT SYMP SNOMED Code(s): 015274452 Comment: - Continue finasteride and tamsulosin (6) Hypothyroidism Code(s): E03.9 - HYPOTHYROIDISM, UNSPECIFIED SNOMED Code(s): 20251377 Comment: - Continue levothyroxine (7) DVT prophylaxis Code(s): LNC2566 - SNOMED Code(s): 011984247 Comment: - Heparin SQ and SCDs (8) Full code status Code(s): Z78.9 - OTHER SPECIFIED HEALTH STATUS SNOMED Code(s): 479469733 Status and Disposition: Inpatient. Discharge to home when medically stable, suspect in 1-2 days
[2018-04-25] MEDS: Albuterol 2.5 MG/3 ML NEB.SOL* (0.083%) INH SCH ×2 (01:48→07:49)
[2018-04-25] MEDS: Heparin VIAL(*) 5000 UNITS/ML VIAL (FIVE THOUSAND) SUBCUT SCH (05:40)
[2018-04-25] MEDS: Omeprazole CAP* 20 MG PO SCH (05:40)
[2018-04-25] MEDS: Levothyroxine TAB* 112 MCG TAB PO SCH (05:40)
[2018-04-25] MEDS: Mometasone/Formoter 200/5 MDI INH SCH (07:49)
[2018-04-25] MEDS: Tiotropium CAP.INH* CAP.INH/18 MCG (USE ORDER SET !) INH SCH (07:54)
[2018-04-25] MEDS ORDERED: predniSONE TAB* 20 MG PO SCH (09:00)
[2018-04-25] MEDS: Docusate CAP* 100 MG PO SCH (10:02)
[2018-04-25] MEDS: Finasteride TAB* 5 MG PO SCH (10:02)
[2018-04-25] MEDS: Hydroxychloroquine TAB* 200 MG PO SCH (10:02)
[2018-04-25] MEDS: Tamsulosin CAP* 0.4 MG PO SCH (10:02)
[2018-04-25] MEDS: Atorvastatin* 10 MG TAB PO SCH (10:02)
[2018-04-25 11:31] VITALS: BP 115/62
--- NOTE | 2018-04-25 21:27 | DS ---
CC: Marlyn Arnett NP, from the [place] [facility] * DISCHARGE SUMMARY: DATE OF ADMISSION: 04/23/18 DATE OF DISCHARGE: 04/25/18 PRIMARY CARE PROVIDER: Marlyn Arnett NP, from the [facility]. DISCHARGE DIAGNOSES: 1. Chronic obstructive pulmonary disease exacerbation and acute hypoxemic respiratory failure due to that. 2. Elevated troponin likely due to demand ischemia. SECONDARY DIAGNOSES: 1. History of rheumatoid arthritis. 2. History of lung carcinoma diagnosed in October 2017, status post radiation. 3. Ongoing tobacco abuse. The patient smokes a pack to pack and a half cigarettes a day, has been doing so for over 50 years. 4. History of chronic obstructive pulmonary disease. 5. Dyslipidemia. 6. Benign prostatic hypertrophy. 7. Hypothyroidism. MEDICATIONS: At discharge include: 1. Lipitor 5 mg daily. 2. Proscar 5 mg daily. 3. Plaquenil 200 mg b.i.d. 4. Synthroid 112 mcg daily. 5. Tamsulosin 0.4 mg daily. 6. Albuterol inhaler on a p.r.n. basis. 7. Prednisone 50 mg daily for 4 days, then stop. 8. Spiriva 1 inhalation b.i.d. 9. The patient also is encouraged to use nebulizers at home [facility]. HOSPITALIZATION COURSE: Arash Edwards is a 72-year-old male who was diagnosed of lung cancer earlier this year for which he received radiation treatment at the [facility], who presented complaining of shortness of breath. The patient initially was hypoxemic on evaluation and was treated with steroids with good results. By the time of discharge, he was on room air and comfortable. He was strongly encouraged to stop smoking. Despite being diagnosed with lung cancer at the beginning of this year, he continues to smoke a pack to pack and a half a day. The patient's troponin was elevated to 0.11 at its peak likely due to demand ischemia. Complained of no chest pain. He is recommended to follow up with evaluation as outpatient with possibility of outpatient cardiac stress test. The patient is recommended to follow up with Marlyn Arnett, his primary care provider, in approximately 4 to 7 days. PHYSICAL EXAMINATION: At the time of discharge, blood pressure 115/62, heart rate of 76 and regular, respiratory rate 16, oxygen saturation 92% on room air, temperature 97.7. General: The patient is a very pleasant 72-year-old male, who is in no acute distress. Alert, awake, oriented x3. HEENT: Head: Atraumatic, normocephalic. Eyes: Pupils are equal, reactive to light and accommodation. Oropharynx is clear. Mucosa moist. Neck: Supple. No JVD. No bruits bilaterally. Cardiovascular: Regular rate and rhythm. No murmur. Respiratory: Distant breath sounds bilaterally. No wheezes. Abdomen: Soft, nontender. Bowel sounds are present in all 4 quadrants. Extremities: There is no edema. Pulses are +2 bilaterally. There is no clubbing or cyanosis. Neuro Evaluation: Speech is clear. Cranial nerves II through XII grossly intact. Motor strength is 5/5 bilaterally. Please note that this is a short summary of the patient's hospital stay. Please refer to further medical records for details. TIME SPENT: Approximately 35 minutes were spent on the patient's discharge. [id number]/CPS #: [id number] MTDD
== END 2018-04-25 13:30 | disposition home or self-care (01) | DRG 189 ==
LOC: ED 17:58 → MEDTELE 22:51
PROVIDERS: ADMIT Hospitalist; ATTEND Internal Medicine
DX: J96.01 Acute respiratory failure with hypoxia (principal); J44.1 Chronic obstructive pulmonary disease with (acute) exacerbation; I24.8 Other forms of acute ischemic heart disease; C34.90 Malignant neoplasm of unspecified part of unspecified bronchus or lung; R74.8 Abnormal levels of other serum enzymes; M06.9 Rheumatoid arthritis, unspecified; E78.5 Hyperlipidemia, unspecified; N40.0 Benign prostatic hyperplasia without lower urinary tract symptoms; E03.9 Hypothyroidism, unspecified; F17.210 Nicotine dependence, cigarettes, uncomplicated; Z79.899 Other long term (current) drug therapy; Z88.1 Allergy status to other antibiotic agents; Z80.0 Family history of malignant neoplasm of digestive organs
CPT/HCPCS: 36415; 71045; 80048; 80053; 82550; 82553; 82565; 82803; 83605; 83880; 84145; 84484; 84520; 85025; 85379; 85610; 85730; 86140; 87040; 93005; 94640; 99284; 99406; A9270-GY; J1644; J2270; J2920; J2930; J7512

== ENCOUNTER 2018-05-23 19:20 | Day surgery (SDC) | payer OTHER ==
[2018-05-23 20:27] LABS: ABS Basophils 0 10^3/ul (0-0.2); ABS Eosinophils 0.1 10^3/ul (0-0.6); ABS Lymphocytes 0.7 10^3/ul (1.0-4.8); ABS Monocytes 1.2 10^3/ul (0-0.8); ABS Neutrophils 11.5 10^3/ul (1.5-7.7); ABS Nucleated RBC 0.1 10^3/ul; Eosinophil % 0.8 % (0-6); Hematocrit 47 % (42-52); Hemoglobin 15.6 g/dl (14.0-18.0); Lymphocyte % 5.3 % (25-47); Mean Corpuscular HGB Conc 33 g/dl (31-36); Mean Corpuscular Hemoglobin 29 pg (27-31); Mean Corpuscular Volume 88 fL (80-94); Mean Platelet Volume 9.1 um3 (7.4-10.4); Nucleated Red Blood Cells % 0.5; Platelet Count 257 10^3/ul (150-450); Red Blood Count 5.32 10^6/ul (4.00-5.40); Red Cell Distribution Width 16 % (10.5-15); White Blood Count 13.5 10^3/ul (3.5-10.8)
[2018-05-23] MEDS ORDERED: Glucagon* 1 MG VIAL IV ONE ×2 (20:33→21:27)
[2018-05-23 20:40] LABS: INR 0.95 (0.77-1.02)
[2018-05-23 20:40] LABS: EGFR Non-African American 110.5 (>60)
--- NOTE | 2018-05-23 21:31 | CONSULT ---
Consult Consult: GASTROENTEROLOGY CONSULT HPI: Mr Edwards is a 72yM with histoy of COPD and lung cancer s/p radiation therapy, who presents with food impaction. 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 He has been unable to pass the hotdog and has been spitting up phlegm and saliva since this time. He indicates that it feels as if the hot dog is stuck high in his esophagus. No GERD or dysphagia at baseline. He recalls an episode of food getting stuck around 3 years ago but was able to get the food to pass spontaneously.Uses Ibuprofen once daily. Denies any shortness of breath -- recently got over an URI several weeks ago during which breathing was more labored, now resolved. Denies chest pain. Of note, Mr Edwards is adamant he leave the hospital relatively soon as he has an important PET Scan in [place] in the morning to evaluate the status of his lung cancer. Patient was given IV Glucagon 1 mg x 2 without significant improvement. ROS: 8 out of 10 systems revieweD: ENT, GI, cardiac, pulmonary systems negative except as above. system positive for BPH, MSK system positive for joint pain , neurologic and hematologic systems negative. PMH/PSH: - Hx of lung cancer s/p radiation therapy (last October) - COPD - BPH - HLD - History of thyroidectomy MEDS: Patient reports being on albuterol, COPD inhaler, tamsulosin, finasteride , statin, thyroid supplementation, daily IBU. NO blood thinners. Allergies: Amoxicillin- joint pain FH: No known GI or liver dz. SH: Retired. 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 No alcohol or drug use. Long-term smoker, down to 5 cigarettes/day. EXAM: Vital Signs: T 99, HR 123, BP 111/90, 97% SpO2 GEN: Mildly uncomfortable gentleman. Coughing and spitting up small amounts of phlegm at several points during the interview. HEENT: MMM, red tongue. CV: RRR, no m/r/g PULM: Normal WOB, unlabored. Clear. ABD: +BS. Soft, nontender, nondistended EXT: WWP, no edema NEURO: AOx3, non-focal STUDIES: Labs reviewed- WBC 13.5. Normal Hct and INR. IMPRESSION/RECOMMENDATIONS: Mr Edwards is a 72yM with histoy of COPD and lung cancer s/p radiation therapy, who presents with food impaction (hotdog) since 1 pm. Continues to spit up phlegm/ saliva despite Glucagon IV 1 mg x 2. - NPO - Will plan for EGD with moderate sedation at bedside in ED. Of note, the patient was initially insistent upon driving himself home from the hospital after receiving sedation. It was explained that we are unable to give him moderate sedation without him having a ride from family member or friend. Patient ultimately confirms that he will have his neighbor come to the ED and drive him home.
--- NOTE | 2018-05-23 21:57 | ED ---
GI/ HPI - HPI Summary HPI Summary: The pt is a 72 y.o presenting to the [facility] with a chief complaint of foreign body esophageal sensation. Pt states that he was eating a hot dog at around 1700 and he believes the hot dog to be "stuck" at the base of his throat. Afterwards, the pt was attempting to "throw up" the hot dog for one hour. The sensation is still currently present. He has not received any blood thinners. Pt states that no issue similar to current situation has occurred. Pt is unable to swallow and liquid or other substance. Pt denies chest pain and vomiting. Pt is "gagging" fluid. He has received endoscopies in the past. Patient has a lung cancer history and is due to follow-up in [place] tomorrow morning. - History of Current Complaint Chief Complaint: EDForeignBodyEsophag Time Seen by Provider: 05/23/18 20:06 Stated Complaint: FO STUCK IN THROAT Hx Obtained From: Patient Onset/Duration: Started Hours Ago, Still Present Pain Intensity: 0 Associated Signs and Symptoms: Positive: Other: - Unable to swallow liquids. Negative Chest pain Aggravating Factor(s): Nothing Alleviating Factor(s): Nothing - Additional Pertinent History Primary Care Physician: [id number] - Allergy/Home Medications Allergies/Adverse Reactions: Allergies Allergy/AdvReac Type Severity Reaction Status Date / Time amoxicillin AdvReac Joint Pain Verified 05/23/18 19:24 PMH/Surg Hx/FS Hx/Imm Hx Endocrine/Hematology History: Reports: Hx Thyroid Disease Respiratory History: Reports: Hx Asthma, Hx Chronic Obstructive Pulmonary Disease (COPD), Hx Lung Cancer - Jul 2017, s/p radiation at [facility] , Other Respiratory Problems/Disorders - Pneumothorax - 5 years ago; still smokes Apr 2018 Sensory History: Reports: Hx Contacts or Glasses, Hx Hearing Aid - left at home Denies: Hx Legally Blind Opthamlomology History: Reports: Hx Contacts or Glasses Denies: Hx Legally Blind - Cancer History Cancer Type, Location and Year: Lung CA diagnosed in July 2017 at the [facility]. Hx Radiation Therapy: Yes Hx Palliative Cancer Treatment: No - Surgical History Surgery Procedure, Year, and Place: thyroidectomy. appendectomy Infectious Disease History: No Infectious Disease History: Denies: Traveled Outside the [place] in Last 30 Days - Family History Known Family History: Positive: Other - Colon CA-mother Negative: Cardiac Disease, Blood Disorder - Social History Occupation: Retired Alcohol Use: None Hx Substance Use: No Substance Use Type: Reports: None Smoking Status (MU): Light Every Day Tobacco Smoker Type: Cigarettes Review of Systems Constitutional: Negative Eyes: Negative ENT: Other - foreign body sensation in base of throat; Gagging fluid Negative: Chest Pain Respiratory: Negative Gastrointestinal: Negative Genitourinary: Negative Musculoskeletal: Negative Skin: Negative Neurological: Negative Psychological: Normal All Other Systems Reviewed And Are Negative: Yes Physical Exam - Summary Physical Exam Summary: Appearance: Well appearing, no pain distress Skin: warm, dry, reflects adequate perfusion Head/face: normal Eyes: EOMI, QAMAR ENT: mucous membranes moist, unable to swallow own secretion; Neck: supple, non-tender Respiratory: CTA, breath sounds present, Breath sounds diminished no wheezing Cardiovascular: RRR, pulses symmetrical Abdomen: non-tender, soft Bowel Sounds: present Musculoskeletal: normal, strength/ROM intact, No LE edema Neuro: normal, sensory motor intact, A&Ox3 Triage Information Reviewed: Yes Vital Signs On Initial Exam: Initial Vitals Temp Pulse Resp BP Pulse Ox 99.0 F 100 20 131/80 95 05/23/18 19:22 05/23/18 19:22 05/23/18 19:22 05/23/18 19:22 05/23/18 19:22 Vital Signs Reviewed: Yes Diagnostics - Vital Signs Vital Signs Temp Pulse Resp BP Pulse Ox 05/23/18 20:49 123 27 111/90 97 05/23/18 20:18 141/88 05/23/18 20:16 93 96 05/23/18 19:22 99.0 F 100 20 131/80 95 - Laboratory Lab Results: Lab Results 05/23/18 05/23/18 05/23/18 Range/Units 20:18 20:18 20:19 WBC 13.5 H (3.5-10.8) 10^3/ul RBC 5.32 (4.00-5.40) 10^6/ul Hgb 15.6 (14.0-18.0) g/dl Hct 47 (42-52) % MCV 88 (80-94) fL MCH 29 (27-31) pg MCHC 33 (31-36) g/dl RDW 16 H (10.5-15) % Plt Count 257 (150-450) 10^3/ul MPV 9.1 (7.4-10.4) um3 Neut % (Auto) 85.0 H (38-83) % Lymph % (Auto) 5.3 L (25-47) % [place] % (Auto) 8.7 H (0-7) % Eos % (Auto) 0.8 (0-6) % Baso % (Auto) 0.2 (0-2) % Absolute Neuts (auto) 11.5 H (1.5-7.7) 10^3/ul Absolute Lymphs (auto) 0.7 L (1.0-4.8) 10^3/ul Absolute Monos (auto) 1.2 H (0-0.8) 10^3/ul Absolute Eos (auto) 0.1 (0-0.6) 10^3/ul Absolute Basos (auto) 0 (0-0.2) 10^3/ul Absolute Nucleated RBC 0.1 10^3/ul Nucleated RBC % 0.5 INR (Anticoag Therapy) 0.95 (0.77-1.02) APTT 31.7 (26.0-36.3) seconds Sodium 144 (135-145) mmol/L Potassium 3.8 (3.5-5.0) mmol/L Chloride 110 (101-111) mmol/L Carbon Dioxide 29 (22-32) mmol/L Anion Gap 5 (2-11) mmol/L BUN 20 (6-24) mg/dL Creatinine 0.70 (0.67-1.17) mg/dL Est GFR ( Amer) 133.8 (>60) Est GFR (Non-Af Amer) 110.5 (>60) BUN/Creatinine Ratio 28.6 H (8-20) Glucose 116 H (70-100) mg/dL Calcium 9.4 (8.6-10.3) mg/dL Result Diagrams: 05/23/18 20:18 05/23/18 20:18 Lab Statement: Any lab studies that have been ordered have been reviewed, and results considered in the medical decision making process. - EKG 2054 EKG Rhythm: Sinus Rhythm - [address] Segment: Normal EKG Interpretation: Normal axis, normal intervals, Poor R wave progression GIGU Course/Dx - Course Course Of Treatment: Patient failed glucagon 2. GI physician came to the ER and attempted endoscopy. The piece of hot dog was proximal and was very difficult to remove at the bedside with endoscopy. She discussed the case with the ENT and they will take the patient to the OR for removal. - Diagnoses Differential Diagnoses - Male: Other - Esophageal stricture, Schatzki's ring Provider Diagnoses: Esophageal foreign body - Physician Notifications Discussed Care Of Patient With: Nyla Ly - We discussed GI intervention Discharge - Sign-Out/Discharge Documenting (check all that apply): Patient Departure - Discharged home - Discharge Plan Condition: Improved Disposition: HOME - Billing Disposition and Condition Condition: IMPROVED Disposition: Home - Attestation Statements Document Initiated by Scribe: Yes Documenting Scribe: Jose Luis Kruger Provider For Whom Westleye is Documenting (Include Credential): Dr Juarez Scribcristela Attestation: Jose Luis Blanco, scribed for Dr Juarez on 05/24/18 at 0142. Scribe Documentation Reviewed: Yes Provider Attestation: The documentation as recorded by the Jose Luis rosario accurately reflects the service I personally performed and the decisions made by Dr Ann amor
[2018-05-23] MEDS ORDERED: fentaNYL* 50 MCG/ML 2 ML VIAL (100 MCG VIAL) ONE (22:03)
[2018-05-23] MEDS ORDERED: Midazolam* 1 MG/ML 10 ML VIAL (10 MG) ONE (22:03)
[2018-05-24] MEDS ORDERED: Succinylcholine* 20 MG/ML 10 ML VIAL ONE (00:11)
[2018-05-24] MEDS ORDERED: Propofol* 10 MG/ML 20 ML BTL IV PUSH ONE (00:11)
[2018-05-24] MEDS ORDERED: fentaNYL* 50 MCG/ML 2 ML VIAL (100 MCG VIAL) ONE (00:11)
[2018-05-24] MEDS ORDERED: Lidocaine 2% PF * 5 ML VIAL ONE (00:11)
[2018-05-24 00:23] VITALS: BP 128/75
[2018-05-24] MEDS ORDERED: Phenylephrine INJ* 10 MG/ML 1 ML VIAL (10 MG) ONE (01:01)
[2018-05-24] MEDS ORDERED: VASOPRESSIN 20 UNITS/ML 1 ML VIAL ONE (01:01)
[2018-05-24] MEDS ORDERED: methylPREDNISolone SOD 40 MG* 1 ML VIAL ONE (01:03)
[2018-05-24] MEDS ORDERED: EPHEDrine (Pressors)* 50 MG/ML VIAL ONE (01:24)
[2018-05-24] MEDS ORDERED: Ondansetron INJ* 2 MG/ML VIAL IV PRN (01:26)
[2018-05-24] MEDS ORDERED: fentaNYL* 50 MCG/ML 2 ML VIAL (100 MCG VIAL) IV PRN (01:26)
[2018-05-24] MEDS ORDERED: Naloxone* 0.4 MG/ML 1 ML VIAL IV PRN (01:26)
[2018-05-24] MEDS ORDERED: Ondansetron INJ* 2 MG/ML VIAL ONE (02:39)
--- NOTE | 2018-05-24 08:10 | RAD ---
INDICATION: Complaint of hotdog stuck in throat since 1300 hours. Previous pneumothorax. History of tobacco use. COMPARISON: May 11, 2018 TECHNIQUE: Dual energy PA and routine lateral views of the chest were obtained. REPORT: Elevated lung volumes and both diffuse mild prominence of the interstitial markings and significant patchy rarefaction of the interstitial markings. No focal pulmonary lesion, compelling alveolar consolidation, pleural effusion, pneumothorax. Negative for cardiomegaly. Unremarkable central pulmonary vasculature. Significantly tortuous descending thoracic aorta without increased diameter without significant interval change. No conspicuous foreign body or abnormal gas collection at the visualized neck or mediastinum. IMPRESSION: #. Stigmata of obstructive lung disease. No acute pulmonary or cardiac process evident. #. No conspicuous foreign body or abnormal gas collection at the visualized neck or mediastinum. R0
--- NOTE | 2018-05-24 09:17 | PN ---
Progress Note - Progress Note Date of Service: 05/24/18 Note: GI CONSULT UPDATE - note entered late due to [employer] downtime EGD attempted in ED with moderate sedation (Versed 3.5 mg, Fentanyl 25 mcg). A large impacted food bolus was seen in upper esophagus immediately past UES. Patient was not adequately sedated to attempt removal. Decision made to abort procedure and transfer to OR for attempt with anesthesia. Patient intubated in OR for repeat EGD. Large impacted food bolus encountered at 20 cm. Multiple attempts were made over the course an hour and a half to remove the bolus without success. Only tiny fragments of the macerated bread/ hotdog would pull apart and then ultimately conglomerate again. A view of the lumen past the food bolus was not able to be obtained. The food bolus appeared to have moved distally several centimeters by the end of the case revealing circumferential inflammation and narrowing of the esophageal mucosa suggestive of pressure-related injury +/- radiation-induced changes/stricture. Decision made to transfer patient to [facility] for further endoscopic attempts at food bolus removal. Patient was extubated and remained clinically stable. No subcutaneous emphysema or neck swelling/pain noted post-procedure. Patient's son was contacted to review the findings and plan. Report given to accepting ED attending at [facility]. Full procedure note to follow.
--- NOTE | 2018-05-25 05:21 | PRO ---
DATE OF PROCEDURE: 05/24/18 PROCEDURE: EGD. INDICATION: The patient is a 72-year-old gentleman with a history of lung cancer, status post-radiation, who presents to the ER with food impaction beginning at 1 p.m. He ate a large chunk of hot dog and bun, which he feels is stuck in his upper esophagus. He has been unable to manage his secretions. He had an episode of food impaction several years ago that resolved spontaneously. He otherwise denies any GERD or dysphagia symptoms on a regular basis. MEDICATIONS GIVEN: 1. Versed 3.5 IV. 2. Fentanyl 25 mcg IV, followed by medications given by anesthesia service. DESCRIPTION OF PROCEDURE: Full disclosure of risks were reviewed with the patient as detailed on the consent form. The patient was placed in the left lateral decubitus position and monitored with continuous pulse oximetry, interval blood pressure monitoring, and direct observation. A bite-block was placed between the teeth. An Olympus gastroscope (GIF H180J, 9.9 mm diameter) was then inserted into the patient's mouth. Immediately upon entering into the upper esophagus, a large food bolus was encountered. The patient was not able to be adequately sedated to attempt to remove the food bolus. The decision was made to abort the procedure and transfer to the OR for attempt with anesthesia. Several hours later, the patient was intubated in the OR for repeat EGD. A gastroscope (GIF Q180, 8.8 mm diameter) was inserted into the patient's mouth. A large impacted food bolus was encountered at 20 cm. Multiple attempts were made over the course of an hour and a half to remove the bolus without success. Tools used included a rat-tooth forceps, 3-pronged grasper, 2 sizes of Marshall Net (1.8 cm, 3 cm), cap from variceal banding device to attempt to suction food bolus, and irrigation. Only tiny fragments of a macerated bread and hot dog could be pulled apart from the bolus. These pieces then ultimately conglomerated again. The food bolus was not able to be pushed forward due to resistance and unknown anatomy below the food bolus. A view of the lumen past the food bolus was not able to be obtained. The food bolus appeared to have moved distally by several centimeters by end of the case. There was circumferential inflammation of the mucosa and mild narrowing of the lumen noted in the area proximal to the food bolus suggestive of pressure related injury +/- possible radiation-induced change or stricture. Gastroscope was withdrawn from the patient. Decision was made to transfer the patient to [facility] for further endoscopic attempt of the food bolus removal. The patient was extubated and remained clinically stable. No subcutaneous emphysema or neck swelling or pain was noted postprocedure. The patient's son was contacted to review the findings and plan. Report was personally given to the accepting ER attending at [facility]. IMPRESSION: Unsuccessful food bolus removal in the upper esophagus at 20 cm. RECOMMENDATIONS: 1. We will transfer to [facility] for a repeat endoscopic attempt at food bolus removal. 2. The patient should be seen by GI in clinic to discuss repeat EGD to reassess esophagus for areas of stricturing or narrowing. Ideally, this procedure would be done at least several weeks from now to let the esophagus heal. The patient will be contacted with a clinic followup if he so wishes. [id number]/[facility] #: [id number] RUMA
== END 2018-05-24 04:43 | disposition short-term general hospital (02) ==
LOC: ED 19:20 → OR 19:28
PROVIDERS: ATTEND Internal Medicine Gastroenterology
DX: T18.128A Food in esophagus causing other injury, initial encounter (principal); Z85.118 Personal history of other malignant neoplasm of bronchus and lung; J44.9 Chronic obstructive pulmonary disease, unspecified; E03.9 Hypothyroidism, unspecified; E78.5 Hyperlipidemia, unspecified
CPT/HCPCS: 36415; 71046; 80048; 85025; 85610; 85730; 93005; 99156; 99285; J0330; J1610; J2250; J2405; J2704; J2920; J3010

== ENCOUNTER → 2018-05-24 02:42 | Emergency (ER) | payer OTHER | END | disposition left against medical advice (07) | LOC: ED 02:42 | DX: T17.208A Unspecified foreign body in pharynx causing other injury, initial encounter (principal) ==

== ENCOUNTER 2018-09-21 15:54 | Inpatient (IN) | payer OTHER ==
[2018-09-21] MEDS ORDERED: NS 0.9% 1000 ML* 1,000 ML IV ONE (16:35)
[2018-09-21] MEDS ORDERED: Albuterol/Ipratropium NEB.SOL* Albuterol 2.5 MG/Ipratropium 0.5 MG 3 ML INH ONE ×2 (16:42→18:23)
[2018-09-21] MEDS ORDERED: methylPREDNISolone 125 MG* 2 ML VIAL IV ONE (16:42)
[2018-09-21 16:58] LABS: ABS Basophils 0.1 10^3/ul (0-0.2); ABS Eosinophils 0.7 10^3/ul (0-0.6); ABS Lymphocytes 0.9 10^3/ul (1.0-4.8); ABS Monocytes 0.8 10^3/ul (0-0.8); ABS Neutrophils 6.3 10^3/ul (1.5-7.7); ABS Nucleated RBC 0 10^3/ul; Eosinophil % 7.5 %; Hematocrit 44 % (42-52); Hemoglobin 14.5 g/dl (14.0-18.0); Mean Corpuscular HGB Conc 33 g/dl (31-36); Mean Corpuscular Hemoglobin 28 pg (27-31); Mean Corpuscular Volume 85 fL (80-94); Mean Platelet Volume 8.9 fL (7.4-10.4); Nucleated Red Blood Cells % 0.1; Platelet Count 263 10^3/ul (150-450); Red Blood Count 5.12 10^6/ul (4.00-5.40); Red Cell Distribution Width 15 % (10.5-15); White Blood Count 8.7 10^3/ul (3.5-10.8)
[2018-09-21 17:05] LABS: INR 1.01 (0.77-1.02)
[2018-09-21 17:15] LABS: Albumin 4.1 g/dL (3.2-5.2); Albumin/Globulin Ratio 1.2 (1-3); BUN/Creatinine Ratio 19.4 (8-20); C Reactive Protein 5.26 mg/L (<8.01); Calcium 9.2 mg/dL (8.6-10.3); EGFR Non-African American 127.2 (>60); Globulin 3.3 g/dL (2-4); Potassium 3.8 mmol/L (3.5-5.0); Total Bilirubin 0.4 mg/dL (0.2-1.0); Total Protein 7.4 g/dL (6.4-8.9)
[2018-09-21] MEDS ORDERED: Levofloxacin 750 MG IVPREMIX(* 750 MG/150 ML BAG IVPB ONE (20:21)
--- NOTE | 2018-09-21 20:23 | ED ---
Respiratory - HPI Summary HPI Summary: Patient complains of persistent SOB, chills, decreased urinary flow 3 days. Denies fever, cough, sore throat, CP, TAMAYO, N/V/D, abdominal pain, change in urine , change in BM. Patient has history of COPD, lung cancer in remission, HDL, BPH , hypothyroid, RA. Denies home O2. Has inhaler at home but no nebulizer. Positive smoker. Patient placed on oxygen by EMS. - History of Current Complaint Chief Complaint: EDRespiratoryDistress Stated Complaint: DIFF BREATHING Time Seen by Provider: 09/21/18 16:32 Hx Obtained From: Patient, Family/Risk Specialist Onset/Duration: Gradual Onset Timing: Constant Initial Severity: Moderate Current Severity: Moderate Pain Intensity: 0 Character: Dyspnea at Rest, Dyspnea on Exertion Sputum Amount: None Aggravating Factor(s): Movement Alleviating Factor(s): Oxygen Associated Signs and Symptoms: SOB, Dyspnea - Allergy/Home Medications Allergies/Adverse Reactions: Allergies Allergy/AdvReac Type Severity Reaction Status Date / Time Penicillins Allergy Thrush Verified 09/21/18 16:13 Home Medications: Home Medications Stiolto Respimat Inh [place]ler (60 puff)(NF) 1 puff INH BID 09/21/18 [History Confirmed 09/21/18] PMH/Surg Hx/FS Hx/Imm Hx Endocrine/Hematology History: Reports: Hx Thyroid Disease Respiratory History: Reports: Hx Asthma, Hx Chronic Obstructive Pulmonary Disease (COPD), Hx Lung Cancer - Jul 2017, s/p radiation at [facility] , Other Respiratory Problems/Disorders - PNX History: Denies: Hx Dialysis Sensory History: Reports: Hx Contacts or Glasses, Hx Hearing Aid - left at home Denies: Hx Legally Blind Opthamlomology History: Reports: Hx Contacts or Glasses Denies: Hx Legally Blind Neurological History: Denies: Hx Developmental Delay Psychiatric History: Denies: Hx Autism - Cancer History Cancer Type, Location and Year: Lung CA diagnosed in July 2017 at the [facility]. Hx Radiation Therapy: Yes Hx Palliative Cancer Treatment: No - Surgical History Surgery Procedure, Year, and Place: thyroidectomy. appendectomy Infectious Disease History: No Infectious Disease History: Denies: Traveled Outside the [place] in Last 30 Days - Family History Known Family History: Positive: Other - Colon CA-mother Negative: Cardiac Disease, Blood Disorder - Social History Alcohol Use: None Hx Substance Use: No Substance Use Type: Reports: None Smoking Status (MU): Light Every Day Tobacco Smoker Type: Cigarettes Review of Systems Constitutional: Negative Eyes: Negative ENT: Negative Cardiovascular: Negative Positive: Shortness Of Breath Gastrointestinal: Negative Genitourinary: Negative Musculoskeletal: Negative Skin: Negative Neurological: Negative Psychological: Normal All Other Systems Reviewed And Are Negative: Yes Physical Exam Triage Information Reviewed: Yes Vital Signs On Initial Exam: Initial Vitals Temp Pulse Resp BP Pulse Ox 98.3 F 81 16 153/102 91 09/21/18 16:09 09/21/18 16:09 09/21/18 16:09 09/21/18 16:09 09/21/18 16:09 Vital Signs Reviewed: Yes Appearance: Positive: Well-Appearing Skin: Positive: Warm Head/Face: Positive: Normal Head/Face Inspection Eyes: Positive: Normal ENT: Positive: Normal ENT inspection Neck: Positive: Supple Respiratory/Lung Sounds: Positive: Decreased Breath Sounds Cardiovascular: Positive: Normal Abdomen Description: Positive: Nontender Musculoskeletal: Positive: Normal Neurological: Positive: Normal Psychiatric: Positive: Normal AVPU Assessment: Alert - Lidya Coma Scale Best Eye Response: 4 - Spontaneous Best Motor Response: 6 - Obeys Commands Best Verbal Response: 5 - Oriented Coma Scale Total: 15 Diagnostics - Vital Signs Vital Signs Temp Pulse Resp BP Pulse Ox 09/21/18 20:02 82 34 140/77 90 09/21/18 20:00 78 19 93 09/21/18 19:45 90 09/21/18 19:32 85 15 141/81 91 09/21/18 19:02 90 20 145/73 96 09/21/18 19:00 83 14 96 09/21/18 18:47 68 16 98 09/21/18 18:02 96 24 137/70 96 09/21/18 18:00 73 14 97 09/21/18 17:32 85 21 149/95 98 09/21/18 17:19 77 18 98 09/21/18 17:02 78 19 98 09/21/18 17:00 88 28 97 09/21/18 16:32 75 24 146/94 95 09/21/18 16:30 87 17 87 09/21/18 16:09 98.3 F 81 16 153/102 91 - Laboratory Lab Results: Lab Results 09/21/18 09/21/18 09/21/18 Range/Units 16:42 16:42 16:42 WBC 8.7 (3.5-10.8) 10^3/ul RBC 5.12 (4.00-5.40) 10^6/ul Hgb 14.5 (14.0-18.0) g/dl Hct 44 (42-52) % MCV 85 (80-94) fL MCH 28 (27-31) pg MCHC 33 (31-36) g/dl RDW 15 (10.5-15) % Plt Count 263 (150-450) 10^3/ul MPV 8.9 (7.4-10.4) fL Neut % (Auto) 71.9 % Lymph % (Auto) 10.0 % [place] % (Auto) 9.7 % Eos % (Auto) 7.5 % Baso % (Auto) 0.9 % Absolute Neuts (auto) 6.3 (1.5-7.7) 10^3/ul Absolute Lymphs (auto) 0.9 L (1.0-4.8) 10^3/ul Absolute Monos (auto) 0.8 (0-0.8) 10^3/ul Absolute Eos (auto) 0.7 H (0-0.6) 10^3/ul Absolute Basos (auto) 0.1 (0-0.2) 10^3/ul Absolute Nucleated RBC 0 10^3/ul Nucleated RBC % 0.1 INR (Anticoag Therapy) 1.01 (0.77-1.02) D-Dimer, Quantitative < 200 (Less Than 230) ng/mL ABG pH (7.35-7.45) ABG pCO2 (35-45) mmHg ABG pO2 (80-100) mmHg ABG HCO3 (19-31) mmol/L ABG O2 Saturation (94.0-98.0) % ABG Base Excess (-2.0-2.0) mmol/L VBG pH (7.32-7.43) VBG pCO2 (41-51) mmHg VBG pO2 (35-45) mmHg VBG HCO3 (24-28) mmol/L VBG O2 Saturation (70-80) % VBG Base Excess (0.0-4.0) mmol/L Sodium 140 (135-145) mmol/L Potassium 3.8 (3.5-5.0) mmol/L Chloride 104 (101-111) mmol/L Carbon Dioxide 28 (22-32) mmol/L Anion Gap 8 (2-11) mmol/L BUN 12 (6-24) mg/dL Creatinine 0.62 L (0.67-1.17) mg/dL Est GFR ( Amer) 153.9 (>60) Est GFR (Non-Af Amer) 127.2 (>60) BUN/Creatinine Ratio 19.4 (8-20) Glucose 109 H (70-100) mg/dL Lactic Acid (0.5-2.0) mmol/L Calcium 9.2 (8.6-10.3) mg/dL Total Bilirubin 0.40 (0.2-1.0) mg/dL AST 15 (13-39) U/L ALT 8 (7-52) U/L Alkaline Phosphatase 74 (34-104) U/L Troponin I 0.00 (<0.04) ng/mL C-Reactive Protein 5.26 (<8.01) mg/L B-Natriuretic Peptide (<=100) pg/mL Total Protein 7.4 (6.4-8.9) g/dL Albumin 4.1 (3.2-5.2) g/dL Globulin 3.3 (2-4) g/dL Albumin/Globulin Ratio 1.2 (1-3) Influenza A (Rapid) (Negative) Influenza B (Rapid) (Negative) 09/21/18 09/21/18 09/21/18 Range/Units 16:42 16:42 17:03 WBC (3.5-10.8) 10^3/ul RBC (4.00-5.40) 10^6/ul Hgb (14.0-18.0) g/dl Hct (42-52) % MCV (80-94) fL MCH (27-31) pg MCHC (31-36) g/dl RDW (10.5-15) % Plt Count (150-450) 10^3/ul MPV (7.4-10.4) fL Neut % (Auto) % Lymph % (Auto) % [place] % (Auto) % Eos % (Auto) % Baso % (Auto) % Absolute Neuts (auto) (1.5-7.7) 10^3/ul Absolute Lymphs (auto) (1.0-4.8) 10^3/ul Absolute Monos (auto) (0-0.8) 10^3/ul Absolute Eos (auto) (0-0.6) 10^3/ul Absolute Basos (auto) (0-0.2) 10^3/ul Absolute Nucleated RBC 10^3/ul Nucleated RBC % INR (Anticoag Therapy) (0.77-1.02) D-Dimer, Quantitative (Less Than 230) ng/mL ABG pH (7.35-7.45) ABG pCO2 (35-45) mmHg ABG pO2 (80-100) mmHg ABG HCO3 (19-31) mmol/L ABG O2 Saturation (94.0-98.0) % ABG Base Excess (-2.0-2.0) mmol/L VBG pH (7.32-7.43) VBG pCO2 (41-51) mmHg VBG pO2 (35-45) mmHg VBG HCO3 (24-28) mmol/L VBG O2 Saturation (70-80) % VBG Base Excess (0.0-4.0) mmol/L Sodium (135-145) mmol/L Potassium (3.5-5.0) mmol/L Chloride (101-111) mmol/L Carbon Dioxide (22-32) mmol/L Anion Gap (2-11) mmol/L BUN (6-24) mg/dL Creatinine (0.67-1.17) mg/dL Est GFR ( Amer) (>60) Est GFR (Non-Af Amer) (>60) BUN/Creatinine Ratio (8-20) Glucose (70-100) mg/dL Lactic Acid 0.9 (0.5-2.0) mmol/L Calcium (8.6-10.3) mg/dL Total Bilirubin (0.2-1.0) mg/dL AST (13-39) U/L ALT (7-52) U/L Alkaline Phosphatase (34-104) U/L Troponin I (<0.04) ng/mL C-Reactive Protein (<8.01) mg/L B-Natriuretic Peptide 12 (<=100) pg/mL Total Protein (6.4-8.9) g/dL Albumin (3.2-5.2) g/dL Globulin (2-4) g/dL Albumin/Globulin Ratio (1-3) Influenza A (Rapid) Negative (Negative) Influenza B (Rapid) Negative (Negative) 09/21/18 09/21/18 09/21/18 Range/Units 17:30 18:13 18:13 WBC (3.5-10.8) 10^3/ul RBC (4.00-5.40) 10^6/ul Hgb (14.0-18.0) g/dl Hct (42-52) % MCV (80-94) fL MCH (27-31) pg MCHC (31-36) g/dl RDW (10.5-15) % Plt Count (150-450) 10^3/ul MPV (7.4-10.4) fL Neut % (Auto) % Lymph % (Auto) % [place] % (Auto) % Eos % (Auto) % Baso % (Auto) % Absolute Neuts (auto) (1.5-7.7) 10^3/ul Absolute Lymphs (auto) (1.0-4.8) 10^3/ul Absolute Monos (auto) (0-0.8) 10^3/ul Absolute Eos (auto) (0-0.6) 10^3/ul Absolute Basos (auto) (0-0.2) 10^3/ul Absolute Nucleated RBC 10^3/ul Nucleated RBC % INR (Anticoag Therapy) (0.77-1.02) D-Dimer, Quantitative (Less Than 230) ng/mL ABG pH 7.41 (7.35-7.45) ABG pCO2 47 H (35-45) mmHg ABG pO2 118 H (80-100) mmHg ABG HCO3 28.3 (19-31) mmol/L ABG O2 Saturation 99.6 H (94.0-98.0) % ABG Base Excess 4.3 H (-2.0-2.0) mmol/L VBG pH 7.38 (7.32-7.43) VBG pCO2 49 (41-51) mmHg VBG pO2 41.0 (35-45) mmHg VBG HCO3 26.5 (24-28) mmol/L VBG O2 Saturation 72.0 (70-80) % VBG Base Excess 3.0 (0.0-4.0) mmol/L Sodium (135-145) mmol/L Potassium (3.5-5.0) mmol/L Chloride (101-111) mmol/L Carbon Dioxide (22-32) mmol/L Anion Gap (2-11) mmol/L BUN (6-24) mg/dL Creatinine (0.67-1.17) mg/dL Est GFR ( Amer) (>60) Est GFR (Non-Af Amer) (>60) BUN/Creatinine Ratio (8-20) Glucose (70-100) mg/dL Lactic Acid (0.5-2.0) mmol/L Calcium (8.6-10.3) mg/dL Total Bilirubin (0.2-1.0) mg/dL AST (13-39) U/L ALT (7-52) U/L Alkaline Phosphatase (34-104) U/L Troponin I 0.01 (<0.04) ng/mL C-Reactive Protein (<8.01) mg/L B-Natriuretic Peptide (<=100) pg/mL Total Protein (6.4-8.9) g/dL Albumin (3.2-5.2) g/dL Globulin (2-4) g/dL Albumin/Globulin Ratio (1-3) Influenza A (Rapid) (Negative) Influenza B (Rapid) (Negative) Result Diagrams: 09/21/18 16:42 09/21/18 16:42 Lab Statement: Any lab studies that have been ordered have been reviewed, and results considered in the medical decision making process. Disposition - Course Course Of Treatment: Patient complains of persistent SOB, chills, decreased urinary flow 3 days. Denies fever, cough, sore throat, CP, TAMAYO, N/V/D, abdominal pain, change in urine, change in BM. Patient has history of COPD, lung cancer in remission, HDL, BPH, hypothyroid, RA. Denies home O2. Has inhaler at home but no nebulizer. Positive smoker. Patient placed on oxygen by EMS. Decreased breath sounds bilaterally in lung bases. RRR. Patient much improved with DuoNeb 2. Ambulated with O2 sat monitor with O2 sats 89-90. Prior O2 sats on prior visits mid 90s on room air. Patient currently on oxygen at 3 L. ABG was taken when patient was on 3 L which is not patient baseline. VBG on room air unremarkable. Chest x-ray positive right infiltrate. EKG sinus rhythm. D-dimer normal. Labs unremarkable. Patient admitted to hospitalists for COPD exacerbation, pneumonia and hypoxia. Patient started on Levaqui IV. - Diagnoses Provider Diagnoses: Pneumonia, COPD exacerbation Discharge - Sign-Out/Discharge Documenting (check all that apply): Patient Departure - Discharge Plan Condition: Fair Disposition: ADMITTED TO [facility] - Billing Disposition and Condition Condition: FAIR Disposition: Admitted to [facility]
[2018-09-21] MEDS ORDERED: Albuterol/Ipratropium NEB.SOL* Albuterol 2.5 MG/Ipratropium 0.5 MG 3 ML INH PRN (20:56)
[2018-09-21] MEDS ORDERED: PTO: Albuterol HFA INHALER* 8 gm MDI INH PRN (20:56)
[2018-09-21] MEDS ORDERED: cefTRIAXone(*) 1 GM in NS 0.9% 50 ML* 50 ML IVPB ONE (21:01)
[2018-09-21] MEDS ORDERED: Azithromycin IV(*) 500 MG in NS 0.9% 250 ML* 250 ML IVPB ONE (21:01)
[2018-09-21] MEDS ORDERED: Acetaminophen TAB* 325 MG PO PRN (21:04)
--- NOTE | 2018-09-21 22:34 | HP ---
CC: Marlyn Arnett HISTORY AND PHYSICAL: DATE OF ADMISSION: 09/21/18 TIME OF EVALUATION: 08:55 PRIMARY CARE PROVIDER: Marlyn Arnett. CHIEF COMPLAINT: Shortness of breath. HISTORY OF PRESENT ILLNESS: Mr. Edwards is a 72-year-old male with past medical history of lung cancer, status post radiation; COPD; hyperlipidemia; BPH; hypothyroidism; rheumatoid arthritis; cutaneous lup us, who presented to the emergency room with complaints of shortness of breath. The patient states that 4 days ago, he went to his usual appointment with his yard stocker in [facility]. He describes having PFTs and he was told that they were unchanged from before. He drove back to [place] and that night started to have some nasal congestion. This symptom progressed with cough and shortness of breath to the point that today he requested his grandson bring him to the [facility] because he could not "move air" even with his breathing treatments at home. In the emergency room, the patient received steroids, 2 nebulizers, and although he was feeling a lit tle better, his oxygen saturation was still in the high 80s with exertion, so the hospitalist service was called to evaluate the patient for admission. He denies fever, chills, chest pain, palpitations, nausea, vomiting, diarrhea, or urinary complaints. PAST MEDICAL HISTORY: 1. Lung CA, status post radiation. 2. COPD. 3. Hyperlipidemia. 4. BPH. 5. Hypothyroidism. 6. Rheumatoid arthritis. 7. Cutaneous lupus. PAST SURGICAL HISTORY: 1. Status post thyroidectomy for hyperthyroidism. 2. Status post appendectomy. MEDICATIONS: 1. Albuterol HFA 2 puffs inhaled q.4 hours p.r.n. shortness of breath. 2. DuoNeb nebulized q.4 hours p.r.n. shortness of breath. 3. Finasteride 5 mg p.o. daily. 4. Hydroxychloroquine 200 mg p.o. b.i.d. 5. Levothyroxine 112 mcg p.o. daily. 6. Stiolto Respimat 1 puff inhale b.i.d. 7. Tamsulosin 0.4 mg p.o. daily. ALLERGIES: With PENICILLIN, the patient had thrush. FAMILY HISTORY: Mother passed at age 84 due to colon cancer. Father passed at age 79 of unknown cau se. SOCIAL HISTORY: The patient was a smoker, one pack per day for more than 50 years. No history of alc ohol or drug use. Surrogate decision maker is his son, Riley Edwards, phone number is [phone]. REVIEW OF SYSTEMS: A 14-point review of systems was performed and all the pertinent negative and pos itive findings are in the HPI. PHYSICAL EXAMINATION GENERAL: The patient is a pleasant gentleman, sitting up in the ED stretcher, in no acute distress. VITAL SIGNS: Temperature 98, heart rate is 85, respiratory rate is 21, oxygen saturation 95% on 2 L nasal cannula, blood pressure is 128/70. HEENT: Pupils are equal. Moist mucous membranes. CHEST: Breath sounds present bilaterally, diminished with scattered wheeze. CVS: Normal S1, S2. Regular rate and rhythm. ABDOMEN: Soft, bowel sounds are present. EXTREMITIES: No edema. NEUROLOGIC: He is alert and oriented x3. Able to move all 4 extremities. LABORATORY/IMAGING DATA: The patient had a CBC that showed WBC of 8.7, hemoglobin of 14.5, hematocr it of 44, platelets of 263. INR was 1. D-dimer was less than 200. ABG showed pH of 7.41, CO2 of 47 , PaO2 of 118, bicarb of 28 with oxygen saturation of 99%. Chemistry showed sodium of 140, potassium 3.8, chloride of 104, bicarb 28, BUN of 12, creatinine of 0.6, glucose of 109, lactic acid of 0.9, c alcium of 9.2. LFTs are normal. Serial troponins are negative x2. Rapid flu test was negative. Chest x-ray showed small right lung infiltrate and findings compatible with COPD. EKG done on 9 at 5 p.m. showed sinus rhythm at 73 beats per minute with no acute ischemic changes. No significan t change when compared to his prior EKG from May 2018. ASSESSMENT AND PLAN: Mr. Ewdards is a 72-year-old male with past medical history of lung carcinoma, stat us post radiation therapy; chronic obstructive pulmonary disease; hyperlipidemia; benign prostatic hy pertrophy; hypothyroidism; rheumatoid arthritis; cutaneous lupus, who presented to the emergency room with complaints of shortness of breath, found to have chronic obstructive pulmonary disease exacerba tion secondary to pneumonia. 1. Chronic obstructive pulmonary disease exacerbation secondary to pneumonia. The patient had sympt omatic improvement in the emergency room but states that his breathing is not yet back to normal and he did saturate to the high 80s on room air with exertion. He will be admitted for observation to [facility] medical floor. We will continue to treat him with ceftriaxone, Zithromax, steroids, and bronchodil ators. We will check Legionella and pneumococcal antigen and the hope is that he will be feeling well tomorrow morning to go home. 2. Benign prostatic hypertrophy. We will continue finasteride and tamsulosin. 3. Hypothyroidism. We will continue levothyroxine. 4. Rheumatoid arthritis/cutaneous lupus. We will continue hydroxychloroquine. 5. Deep venous thrombosis prophylaxis. The patient has a score of 5 on the DVT Prophylaxis Risk Ass essment Guide and he will be started on subcutaneous heparin and SCDs. 6. Code status is full. TIME SPENT: Approximately 45 minutes was spent with patient interview, [facility] records review, physical examination to complete this admission, more than half of this time was spent [id number] with the patient and coordination of care. [id number]/[facility] #: [id number]
[2018-09-22] MEDS: PTO: Tiotropium Brom/Olodaterol(NF) 4 GM 60 PUFF MDI INH SCH ×3 (00:03→22:37)
[2018-09-22] MEDS: Heparin VIAL(*) 5000 UNITS/ML VIAL (FIVE THOUSAND) SUBCUT SCH ×4 (00:06→21:32)
[2018-09-22 00:35] LABS: Urine Appearance Cloudy; Urine Bilirubin Negative (Negative); Urine Blood Negative (Negative); Urine Color Yellow; Urine Glucose Negative (Negative); Urine Ketones Trace (Negative); Urine Nitrite Negative (Negative); Urine Protein Negative (Negative); Urine Specific Gravity 1.023 (1.010-1.030); Urine Urobilinogen Negative (Negative)
[2018-09-22] MEDS: Azithromycin IV(*) 500 MG in NS 0.9% 250 ML* 250 ML IVPB SCH (00:51)
[2018-09-22] MEDS: Levothyroxine TAB* 112 MCG TAB PO SCH (06:13)
[2018-09-22] MEDS: methylPREDNISolone SOD 40 MG* 1 ML VIAL IV SCH ×2 (09:18→19:40)
[2018-09-22] MEDS: Finasteride TAB* 5 MG PO SCH (09:18)
[2018-09-22] MEDS: Tamsulosin CAP* 0.4 MG PO SCH (09:18)
[2018-09-22] MEDS: Hydroxychloroquine TAB* 200 MG PO SCH ×3 (09:18→21:31)
--- NOTE | 2018-09-22 19:38 | PN ---
Subjective Date of Service: 09/22/18 Interval History: Reports improvement in sob compared to admission Objective Active Medications: Acetaminophen (Tylenol Tab*) 650 mg PO Q6H PRN PRN Reason: pain/fever Albuterol (Ventolin Hfa Inhaler*) 2 puff INH Q4H PRN PRN Reason: SOB/WHEEZING Albuterol/Ipratropium (Duoneb (Albuterol 2.5 Mg/Ipratropium 0.5 Mg)) 1 neb INH Q4H PRN PRN Reason: WHEEZING Finasteride (Proscar Tab*) 5 mg PO DAILY [facility] Last Admin: 09/22/18 09:18 Dose: 5 mg Heparin Sodium (Porcine) (Heparin Vial(*)) 5,000 units SUBCUT Q8HR [facility] Last Admin: 09/22/18 14:17 Dose: 5,000 units Hydroxychloroquine Sulfate (Plaquenil Tab*) 200 mg PO BID [facility] Last Admin: 09/22/18 09:18 Dose: 200 mg Ceftriaxone Sodium 1 gm/ (Sodium Chloride) 50 mls @ 200 mls/hr IVPB Q24H [facility] Last Admin: 09/22/18 00:00 Dose: 200 mls/hr Azithromycin 500 mg/ Sodium (Chloride) 250 mls @ 250 mls/hr IVPB Q24H [facility] Last Admin: 09/22/18 00:51 Dose: 250 mls/hr Levothyroxine Sodium (Synthroid Tab*) 112 mcg PO DAILY@0600 [facility] Last Admin: 09/22/18 06:13 Dose: 112 mcg Methylprednisolone Sodium Succinate (Solu-Medrol 40 Mg) 40 mg IV Q12H [facility] Last Admin: 09/22/18 09:18 Dose: 40 mg Tamsulosin HCl (Flomax Cap*) 0.4 mg PO DAILY [facility] Last Admin: 09/22/18 09:18 Dose: 0.4 mg Tiotropium [place]/Olodaterol (Stiolto Respimat Inh [place] (60 Puff)(Nf)) 1 puff INH BID [facility] Last Admin: 09/22/18 14:16 Dose: 1 puff Vital Signs - 8 hr 09/22/18 09/22/18 15:56 18:54 Temperature 98.4 F 98.3 F Pulse Rate 79 84 Respiratory 18 18 Rate Blood Pressure 145/71 132/68 (mmHg) O2 Sat by Pulse 95 97 Oximetry Oxygen Devices in Use Now: Nasal Cannula Eyes: No Scleral Icterus Neck: NL Appearance and Movements; NL JVP Respiratory: Symmetrical Chest Expansion and Respiratory Effort, Clear to Auscultation Cardiovascular: NL Sounds; No Murmurs; No JVD, RRR Abdominal: NL Sounds; No Tenderness; No Distention Extremities: No Edema Skin: No Rash or Ulcers Neurological: Alert and Oriented x 3 Result Diagrams: 09/21/18 16:42 09/21/18 16:42 Additional Lab and Data: Lab Results 09/21/18 09/21/18 09/21/18 Range/Units 16:42 16:42 16:42 WBC 8.7 (3.5-10.8) 10^3/ul RBC 5.12 (4.00-5.40) 10^6/ul Hgb 14.5 (14.0-18.0) g/dl Hct 44 (42-52) % MCV 85 (80-94) fL MCH 28 (27-31) pg MCHC 33 (31-36) g/dl RDW 15 (10.5-15) % Plt Count 263 (150-450) 10^3/ul MPV 8.9 (7.4-10.4) fL Neut % (Auto) 71.9 % Lymph % (Auto) 10.0 % [place] % (Auto) 9.7 % Eos % (Auto) 7.5 % Baso % (Auto) 0.9 % Absolute Neuts (auto) 6.3 (1.5-7.7) 10^3/ul Absolute Lymphs (auto) 0.9 L (1.0-4.8) 10^3/ul Absolute Monos (auto) 0.8 (0-0.8) 10^3/ul Absolute Eos (auto) 0.7 H (0-0.6) 10^3/ul Absolute Basos (auto) 0.1 (0-0.2) 10^3/ul Absolute Nucleated RBC 0 10^3/ul Nucleated RBC % 0.1 INR (Anticoag Therapy) 1.01 (0.77-1.02) D-Dimer, Quantitative < 200 (Less Than 230) ng/mL ABG pH (7.35-7.45) ABG pCO2 (35-45) mmHg ABG pO2 (80-100) mmHg ABG HCO3 (19-31) mmol/L ABG O2 Saturation (94.0-98.0) % ABG Base Excess (-2.0-2.0) mmol/L VBG pH (7.32-7.43) VBG pCO2 (41-51) mmHg VBG pO2 (35-45) mmHg VBG HCO3 (24-28) mmol/L VBG O2 Saturation (70-80) % VBG Base Excess (0.0-4.0) mmol/L Sodium 140 (135-145) mmol/L Potassium 3.8 (3.5-5.0) mmol/L Chloride 104 (101-111) mmol/L Carbon Dioxide 28 (22-32) mmol/L Anion Gap 8 (2-11) mmol/L BUN 12 (6-24) mg/dL Creatinine 0.62 L (0.67-1.17) mg/dL Est GFR ( Amer) 153.9 (>60) Est GFR (Non-Af Amer) 127.2 (>60) BUN/Creatinine Ratio 19.4 (8-20) Glucose 109 H (70-100) mg/dL Lactic Acid (0.5-2.0) mmol/L Calcium 9.2 (8.6-10.3) mg/dL Total Bilirubin 0.40 (0.2-1.0) mg/dL AST 15 (13-39) U/L ALT 8 (7-52) U/L Alkaline Phosphatase 74 (34-104) U/L Troponin I 0.00 (<0.04) ng/mL C-Reactive Protein 5.26 (<8.01) mg/L B-Natriuretic Peptide (<=100) pg/mL Total Protein 7.4 (6.4-8.9) g/dL Albumin 4.1 (3.2-5.2) g/dL Globulin 3.3 (2-4) g/dL Albumin/Globulin Ratio 1.2 (1-3) Influenza A (Rapid) (Negative) Influenza B (Rapid) (Negative) 09/21/18 09/21/18 09/21/18 Range/Units 16:42 16:42 17:03 WBC (3.5-10.8) 10^3/ul RBC (4.00-5.40) 10^6/ul Hgb (14.0-18.0) g/dl Hct (42-52) % MCV (80-94) fL MCH (27-31) pg MCHC (31-36) g/dl RDW (10.5-15) % Plt Count (150-450) 10^3/ul MPV (7.4-10.4) fL Neut % (Auto) % Lymph % (Auto) % [place] % (Auto) % Eos % (Auto) % Baso % (Auto) % Absolute Neuts (auto) (1.5-7.7) 10^3/ul Absolute Lymphs (auto) (1.0-4.8) 10^3/ul Absolute Monos (auto) (0-0.8) 10^3/ul Absolute Eos (auto) (0-0.6) 10^3/ul Absolute Basos (auto) (0-0.2) 10^3/ul Absolute Nucleated RBC 10^3/ul Nucleated RBC % INR (Anticoag Therapy) (0.77-1.02) D-Dimer, Quantitative (Less Than 230) ng/mL ABG pH (7.35-7.45) ABG pCO2 (35-45) mmHg ABG pO2 (80-100) mmHg ABG HCO3 (19-31) mmol/L ABG O2 Saturation (94.0-98.0) % ABG Base Excess (-2.0-2.0) mmol/L VBG pH (7.32-7.43) VBG pCO2 (41-51) mmHg VBG pO2 (35-45) mmHg VBG HCO3 (24-28) mmol/L VBG O2 Saturation (70-80) % VBG Base Excess (0.0-4.0) mmol/L Sodium (135-145) mmol/L Potassium (3.5-5.0) mmol/L Chloride (101-111) mmol/L Carbon Dioxide (22-32) mmol/L Anion Gap (2-11) mmol/L BUN (6-24) mg/dL Creatinine (0.67-1.17) mg/dL Est GFR ( Amer) (>60) Est GFR (Non-Af Amer) (>60) BUN/Creatinine Ratio (8-20) Glucose (70-100) mg/dL Lactic Acid 0.9 (0.5-2.0) mmol/L Calcium (8.6-10.3) mg/dL Total Bilirubin (0.2-1.0) mg/dL AST (13-39) U/L ALT (7-52) U/L Alkaline Phosphatase (34-104) U/L Troponin I (<0.04) ng/mL C-Reactive Protein (<8.01) mg/L B-Natriuretic Peptide 12 (<=100) pg/mL Total Protein (6.4-8.9) g/dL Albumin (3.2-5.2) g/dL Globulin (2-4) g/dL Albumin/Globulin Ratio (1-3) Influenza A (Rapid) Negative (Negative) Influenza B (Rapid) Negative (Negative) 09/21/18 09/21/18 09/21/18 Range/Units 17:30 18:13 18:13 WBC (3.5-10.8) 10^3/ul RBC (4.00-5.40) 10^6/ul Hgb (14.0-18.0) g/dl Hct (42-52) % MCV (80-94) fL MCH (27-31) pg MCHC (31-36) g/dl RDW (10.5-15) % Plt Count (150-450) 10^3/ul MPV (7.4-10.4) fL Neut % (Auto) % Lymph % (Auto) % [place] % (Auto) % Eos % (Auto) % Baso % (Auto) % Absolute Neuts (auto) (1.5-7.7) 10^3/ul Absolute Lymphs (auto) (1.0-4.8) 10^3/ul Absolute Monos (auto) (0-0.8) 10^3/ul Absolute Eos (auto) (0-0.6) 10^3/ul Absolute Basos (auto) (0-0.2) 10^3/ul Absolute Nucleated RBC 10^3/ul Nucleated RBC % INR (Anticoag Therapy) (0.77-1.02) D-Dimer, Quantitative (Less Than 230) ng/mL ABG pH 7.41 (7.35-7.45) ABG pCO2 47 H (35-45) mmHg ABG pO2 118 H (80-100) mmHg ABG HCO3 28.3 (19-31) mmol/L ABG O2 Saturation 99.6 H (94.0-98.0) % ABG Base Excess 4.3 H (-2.0-2.0) mmol/L VBG pH 7.38 (7.32-7.43) VBG pCO2 49 (41-51) mmHg VBG pO2 41.0 (35-45) mmHg VBG HCO3 26.5 (24-28) mmol/L VBG O2 Saturation 72.0 (70-80) % VBG Base Excess 3.0 (0.0-4.0) mmol/L Sodium (135-145) mmol/L Potassium (3.5-5.0) mmol/L Chloride (101-111) mmol/L Carbon Dioxide (22-32) mmol/L Anion Gap (2-11) mmol/L BUN (6-24) mg/dL Creatinine (0.67-1.17) mg/dL Est GFR ( Amer) (>60) Est GFR (Non-Af Amer) (>60) BUN/Creatinine Ratio (8-20) Glucose (70-100) mg/dL Lactic Acid (0.5-2.0) mmol/L Calcium (8.6-10.3) mg/dL Total Bilirubin (0.2-1.0) mg/dL AST (13-39) U/L ALT (7-52) U/L Alkaline Phosphatase (34-104) U/L Troponin I 0.01 (<0.04) ng/mL C-Reactive Protein (<8.01) mg/L B-Natriuretic Peptide (<=100) pg/mL Total Protein (6.4-8.9) g/dL Albumin (3.2-5.2) g/dL Globulin (2-4) g/dL Albumin/Globulin Ratio (1-3) Influenza A (Rapid) (Negative) Influenza B (Rapid) (Negative) Microbiology and Other Data: Microbiology 09/21/18 18:13 Aerobic Blood Culture - Preliminary Blood Venous No Growth Day 1 Anaerobic Blood Culture - Preliminary No Growth Day 1 09/21/18 16:42 Aerobic Blood Culture - Preliminary Blood Venous No Growth Day 1 Anaerobic Blood Culture - Preliminary No Growth Day 1 09/22/18 00:15 Legionella Urinary Antigen - Final Urine Negative Legionella Antigen Streptococcus pneumoniae Ag Screen - Final Negative S. pneumo Antigen 09/21/18 16:49 Influenza Types A,B Antigen - Final Nasopharyngeal Specimen received for Influenza A/B Molecular testing Assess/Plan/Problems-Billing Assessment: - Patient Problems (1) COPD exacerbation Current Visit: No Status: Acute Code(s): J44.1 - CHRONIC OBSTRUCTIVE PULMONARY DISEASE W (ACUTE) EXACERBATION SNOMED Code(s): 183402268 Comment: Continue Iv Solumedrol and Antibiotics Nebulizers and supplemental Oxygen Improving (2) Rheumatoid arthritis Current Visit: No Status: Acute Code(s): M06.9 - RHEUMATOID ARTHRITIS, UNSPECIFIED SNOMED Code(s): 80613454 Comment: h/o , stable on Plaquenil (3) CAP (community acquired pneumonia) Current Visit: Yes Status: Acute Code(s): J18.9 - PNEUMONIA, UNSPECIFIED ORGANISM SNOMED Code(s): 585653515 Comment: Continue Ceftriaxone and Azithromycin Improving R lung pcn
[2018-09-22] MEDS: cefTRIAXone(*) 1 GM in NS 0.9% 50 ML* 50 ML IVPB SCH ×3 (23:50)
[2018-09-23] MEDS: Azithromycin IV(*) 500 MG in NS 0.9% 250 ML* 250 ML IVPB SCH ×2 (00:25→22:24)
[2018-09-23] MEDS: Levothyroxine TAB* 112 MCG TAB PO SCH (06:03)
[2018-09-23] MEDS: Heparin VIAL(*) 5000 UNITS/ML VIAL (FIVE THOUSAND) SUBCUT SCH ×3 (06:04→21:53)
[2018-09-23] MEDS: methylPREDNISolone SOD 40 MG* 1 ML VIAL IV SCH (07:30)
[2018-09-23] MEDS: Finasteride TAB* 5 MG PO SCH (07:31)
[2018-09-23] MEDS: PTO: Tiotropium Brom/Olodaterol(NF) 4 GM 60 PUFF MDI INH SCH ×2 (07:31→22:24)
[2018-09-23] MEDS: Hydroxychloroquine TAB* 200 MG PO SCH ×2 (07:31→21:52)
[2018-09-23] MEDS: Tamsulosin CAP* 0.4 MG PO SCH (07:33)
--- NOTE | 2018-09-23 15:59 | PN ---
Subjective Date of Service: 09/23/18 Interval History: Reports feeling better Objective Active Medications: Acetaminophen (Tylenol Tab*) 650 mg PO Q6H PRN PRN Reason: pain/fever Albuterol (Ventolin Hfa Inhaler*) 2 puff INH Q4H PRN PRN Reason: SOB/WHEEZING Albuterol/Ipratropium (Duoneb (Albuterol 2.5 Mg/Ipratropium 0.5 Mg)) 1 neb INH Q4H PRN PRN Reason: WHEEZING Finasteride (Proscar Tab*) 5 mg PO DAILY [facility] Last Admin: 09/23/18 07:31 Dose: 5 mg Heparin Sodium (Porcine) (Heparin Vial(*)) 5,000 units SUBCUT Q8HR [facility] Last Admin: 09/23/18 14:19 Dose: 5,000 units Hydroxychloroquine Sulfate (Plaquenil Tab*) 200 mg PO BID [facility] Last Admin: 09/23/18 07:31 Dose: 200 mg Ceftriaxone Sodium 1 gm/ (Sodium Chloride) 50 mls @ 200 mls/hr IVPB Q24H [facility] Last Admin: 09/22/18 23:50 Dose: 200 mls/hr Azithromycin 500 mg/ Sodium (Chloride) 250 mls @ 250 mls/hr IVPB Q24H [facility] Last Admin: 09/23/18 00:25 Dose: 250 mls/hr Levothyroxine Sodium (Synthroid Tab*) 112 mcg PO DAILY@0600 [facility] Last Admin: 09/23/18 06:03 Dose: 112 mcg Prednisone (Deltasone Tab*) 40 mg PO DAILY [facility] Tamsulosin HCl (Flomax Cap*) 0.4 mg PO DAILY [facility] Last Admin: 09/23/18 07:33 Dose: 0.4 mg Tiotropium [place]/Olodaterol (Stiolto Respimat Inh [place] (60 Puff)(Nf)) 1 puff INH RT.BID [facility] Last Admin: 09/23/18 07:31 Dose: 1 puff Oxygen Devices in Use Now: Nasal Cannula Eyes: No Scleral Icterus Ears/Nose/Mouth/Throat: NL Teeth, Lips, Gums Neck: NL Appearance and Movements; NL JVP Respiratory: Symmetrical Chest Expansion and Respiratory Effort, Clear to Auscultation Cardiovascular: NL Sounds; No Murmurs; No JVD, RRR Abdominal: NL Sounds; No Tenderness; No Distention Extremities: No Edema Skin: No Rash or Ulcers Neurological: Alert and Oriented x 3 Result Diagrams: 09/21/18 16:42 09/21/18 16:42 Additional Lab and Data: Lab Results 09/21/18 09/21/18 09/21/18 Range/Units 16:42 16:42 16:42 WBC 8.7 (3.5-10.8) 10^3/ul RBC 5.12 (4.00-5.40) 10^6/ul Hgb 14.5 (14.0-18.0) g/dl Hct 44 (42-52) % MCV 85 (80-94) fL MCH 28 (27-31) pg MCHC 33 (31-36) g/dl RDW 15 (10.5-15) % Plt Count 263 (150-450) 10^3/ul MPV 8.9 (7.4-10.4) fL Neut % (Auto) 71.9 % Lymph % (Auto) 10.0 % [place] % (Auto) 9.7 % Eos % (Auto) 7.5 % Baso % (Auto) 0.9 % Absolute Neuts (auto) 6.3 (1.5-7.7) 10^3/ul Absolute Lymphs (auto) 0.9 L (1.0-4.8) 10^3/ul Absolute Monos (auto) 0.8 (0-0.8) 10^3/ul Absolute Eos (auto) 0.7 H (0-0.6) 10^3/ul Absolute Basos (auto) 0.1 (0-0.2) 10^3/ul Absolute Nucleated RBC 0 10^3/ul Nucleated RBC % 0.1 INR (Anticoag Therapy) 1.01 (0.77-1.02) D-Dimer, Quantitative < 200 (Less Than 230) ng/mL ABG pH (7.35-7.45) ABG pCO2 (35-45) mmHg ABG pO2 (80-100) mmHg ABG HCO3 (19-31) mmol/L ABG O2 Saturation (94.0-98.0) % ABG Base Excess (-2.0-2.0) mmol/L VBG pH (7.32-7.43) VBG pCO2 (41-51) mmHg VBG pO2 (35-45) mmHg VBG HCO3 (24-28) mmol/L VBG O2 Saturation (70-80) % VBG Base Excess (0.0-4.0) mmol/L Sodium 140 (135-145) mmol/L Potassium 3.8 (3.5-5.0) mmol/L Chloride 104 (101-111) mmol/L Carbon Dioxide 28 (22-32) mmol/L Anion Gap 8 (2-11) mmol/L BUN 12 (6-24) mg/dL Creatinine 0.62 L (0.67-1.17) mg/dL Est GFR ( Amer) 153.9 (>60) Est GFR (Non-Af Amer) 127.2 (>60) BUN/Creatinine Ratio 19.4 (8-20) Glucose 109 H (70-100) mg/dL Lactic Acid (0.5-2.0) mmol/L Calcium 9.2 (8.6-10.3) mg/dL Total Bilirubin 0.40 (0.2-1.0) mg/dL AST 15 (13-39) U/L ALT 8 (7-52) U/L Alkaline Phosphatase 74 (34-104) U/L Troponin I 0.00 (<0.04) ng/mL C-Reactive Protein 5.26 (<8.01) mg/L B-Natriuretic Peptide (<=100) pg/mL Total Protein 7.4 (6.4-8.9) g/dL Albumin 4.1 (3.2-5.2) g/dL Globulin 3.3 (2-4) g/dL Albumin/Globulin Ratio 1.2 (1-3) Influenza A (Rapid) (Negative) Influenza B (Rapid) (Negative) 09/21/18 09/21/18 09/21/18 Range/Units 16:42 16:42 17:03 WBC (3.5-10.8) 10^3/ul RBC (4.00-5.40) 10^6/ul Hgb (14.0-18.0) g/dl Hct (42-52) % MCV (80-94) fL MCH (27-31) pg MCHC (31-36) g/dl RDW (10.5-15) % Plt Count (150-450) 10^3/ul MPV (7.4-10.4) fL Neut % (Auto) % Lymph % (Auto) % [place] % (Auto) % Eos % (Auto) % Baso % (Auto) % Absolute Neuts (auto) (1.5-7.7) 10^3/ul Absolute Lymphs (auto) (1.0-4.8) 10^3/ul Absolute Monos (auto) (0-0.8) 10^3/ul Absolute Eos (auto) (0-0.6) 10^3/ul Absolute Basos (auto) (0-0.2) 10^3/ul Absolute Nucleated RBC 10^3/ul Nucleated RBC % INR (Anticoag Therapy) (0.77-1.02) D-Dimer, Quantitative (Less Than 230) ng/mL ABG pH (7.35-7.45) ABG pCO2 (35-45) mmHg ABG pO2 (80-100) mmHg ABG HCO3 (19-31) mmol/L ABG O2 Saturation (94.0-98.0) % ABG Base Excess (-2.0-2.0) mmol/L VBG pH (7.32-7.43) VBG pCO2 (41-51) mmHg VBG pO2 (35-45) mmHg VBG HCO3 (24-28) mmol/L VBG O2 Saturation (70-80) % VBG Base Excess (0.0-4.0) mmol/L Sodium (135-145) mmol/L Potassium (3.5-5.0) mmol/L Chloride (101-111) mmol/L Carbon Dioxide (22-32) mmol/L Anion Gap (2-11) mmol/L BUN (6-24) mg/dL Creatinine (0.67-1.17) mg/dL Est GFR ( Amer) (>60) Est GFR (Non-Af Amer) (>60) BUN/Creatinine Ratio (8-20) Glucose (70-100) mg/dL Lactic Acid 0.9 (0.5-2.0) mmol/L Calcium (8.6-10.3) mg/dL Total Bilirubin (0.2-1.0) mg/dL AST (13-39) U/L ALT (7-52) U/L Alkaline Phosphatase (34-104) U/L Troponin I (<0.04) ng/mL C-Reactive Protein (<8.01) mg/L B-Natriuretic Peptide 12 (<=100) pg/mL Total Protein (6.4-8.9) g/dL Albumin (3.2-5.2) g/dL Globulin (2-4) g/dL Albumin/Globulin Ratio (1-3) Influenza A (Rapid) Negative (Negative) Influenza B (Rapid) Negative (Negative) 09/21/18 09/21/18 09/21/18 Range/Units 17:30 18:13 18:13 WBC (3.5-10.8) 10^3/ul RBC (4.00-5.40) 10^6/ul Hgb (14.0-18.0) g/dl Hct (42-52) % MCV (80-94) fL MCH (27-31) pg MCHC (31-36) g/dl RDW (10.5-15) % Plt Count (150-450) 10^3/ul MPV (7.4-10.4) fL Neut % (Auto) % Lymph % (Auto) % [place] % (Auto) % Eos % (Auto) % Baso % (Auto) % Absolute Neuts (auto) (1.5-7.7) 10^3/ul Absolute Lymphs (auto) (1.0-4.8) 10^3/ul Absolute Monos (auto) (0-0.8) 10^3/ul Absolute Eos (auto) (0-0.6) 10^3/ul Absolute Basos (auto) (0-0.2) 10^3/ul Absolute Nucleated RBC 10^3/ul Nucleated RBC % INR (Anticoag Therapy) (0.77-1.02) D-Dimer, Quantitative (Less Than 230) ng/mL ABG pH 7.41 (7.35-7.45) ABG pCO2 47 H (35-45) mmHg ABG pO2 118 H (80-100) mmHg ABG HCO3 28.3 (19-31) mmol/L ABG O2 Saturation 99.6 H (94.0-98.0) % ABG Base Excess 4.3 H (-2.0-2.0) mmol/L VBG pH 7.38 (7.32-7.43) VBG pCO2 49 (41-51) mmHg VBG pO2 41.0 (35-45) mmHg VBG HCO3 26.5 (24-28) mmol/L VBG O2 Saturation 72.0 (70-80) % VBG Base Excess 3.0 (0.0-4.0) mmol/L Sodium (135-145) mmol/L Potassium (3.5-5.0) mmol/L Chloride (101-111) mmol/L Carbon Dioxide (22-32) mmol/L Anion Gap (2-11) mmol/L BUN (6-24) mg/dL Creatinine (0.67-1.17) mg/dL Est GFR ( Amer) (>60) Est GFR (Non-Af Amer) (>60) BUN/Creatinine Ratio (8-20) Glucose (70-100) mg/dL Lactic Acid (0.5-2.0) mmol/L Calcium (8.6-10.3) mg/dL Total Bilirubin (0.2-1.0) mg/dL AST (13-39) U/L ALT (7-52) U/L Alkaline Phosphatase (34-104) U/L Troponin I 0.01 (<0.04) ng/mL C-Reactive Protein (<8.01) mg/L B-Natriuretic Peptide (<=100) pg/mL Total Protein (6.4-8.9) g/dL Albumin (3.2-5.2) g/dL Globulin (2-4) g/dL Albumin/Globulin Ratio (1-3) Influenza A (Rapid) (Negative) Influenza B (Rapid) (Negative) Microbiology and Other Data: Microbiology 09/21/18 18:13 Aerobic Blood Culture - Preliminary Blood Venous No Growth Day 1 Anaerobic Blood Culture - Preliminary No Growth Day 1 09/21/18 16:42 Aerobic Blood Culture - Preliminary Blood Venous No Growth Day 1 Anaerobic Blood Culture - Preliminary No Growth Day 1 09/22/18 00:15 Legionella Urinary Antigen - Final Urine Negative Legionella Antigen Streptococcus pneumoniae Ag Screen - Final Negative S. pneumo Antigen 09/21/18 16:49 Influenza Types A,B Antigen - Final Nasopharyngeal Specimen received for Influenza A/B Molecular testing Assess/Plan/Problems-Billing Assessment: - Patient Problems (1) COPD exacerbation Current Visit: No Status: Acute Code(s): J44.1 - CHRONIC OBSTRUCTIVE PULMONARY DISEASE W (ACUTE) EXACERBATION SNOMED Code(s): 186219788 Comment: Will transition to Po Prednisone 40 mg from Solumedrol Improved Nebulizers and supplemental Oxygen Continue Ceftriaxone and Azithromycin (2) CAP (community acquired pneumonia) Current Visit: Yes Status: Acute Code(s): J18.9 - PNEUMONIA, UNSPECIFIED ORGANISM SNOMED Code(s): 299524034 Comment: Continue Ceftriaxone and Azithromycin Improving R lung pcn (3) Rheumatoid arthritis Current Visit: No Status: Acute Code(s): M06.9 - RHEUMATOID ARTHRITIS, UNSPECIFIED SNOMED Code(s): 21054234 Comment: h/o , stable on Plaquenil Status and Disposition: possible discharge tomorrow on po steroids and abx
[2018-09-23] MEDS: predniSONE TAB* 20 MG PO SCH (16:41)
[2018-09-23] MEDS: cefTRIAXone(*) 1 GM in NS 0.9% 50 ML* 50 ML IVPB SCH (21:53)
[2018-09-24] MEDS: Levothyroxine TAB* 112 MCG TAB PO SCH (05:34)
[2018-09-24] MEDS: Heparin VIAL(*) 5000 UNITS/ML VIAL (FIVE THOUSAND) SUBCUT SCH ×2 (05:37→13:42)
[2018-09-24] MEDS: PTO: Tiotropium Brom/Olodaterol(NF) 4 GM 60 PUFF MDI INH SCH (05:37)
[2018-09-24 07:34] LABS: ABS Basophils 0 10^3/ul (0-0.2); ABS Eosinophils 0 10^3/ul (0-0.6); ABS Lymphocytes 1.1 10^3/ul (1.0-4.8); ABS Monocytes 0.9 10^3/ul (0-0.8); ABS Neutrophils 8.2 10^3/ul (1.5-7.7); ABS Nucleated RBC 0 10^3/ul; Eosinophil % 0 %; Hematocrit 40 % (42-52); Hemoglobin 12.8 g/dl (14.0-18.0); Lymphocyte % 11.1 %; Mean Corpuscular HGB Conc 32 g/dl (31-36); Mean Corpuscular Hemoglobin 28 pg (27-31); Mean Corpuscular Volume 86 fL (80-94); Mean Platelet Volume 9.5 fL (7.4-10.4); Nucleated Red Blood Cells % 0; Platelet Count 200 10^3/ul (150-450); Red Cell Distribution Width 15 % (10.5-15); White Blood Count 10.3 10^3/ul (3.5-10.8)
[2018-09-24 07:47] LABS: BUN/Creatinine Ratio 31.9 (8-20); EGFR Non-African American 112.4 (>60); Potassium 3.9 mmol/L (3.5-5.0)
[2018-09-24] MEDS: predniSONE TAB* 20 MG PO SCH (08:15)
[2018-09-24] MEDS: Tamsulosin CAP* 0.4 MG PO SCH (08:15)
[2018-09-24] MEDS: Hydroxychloroquine TAB* 200 MG PO SCH (08:15)
[2018-09-24] MEDS: Finasteride TAB* 5 MG PO SCH (08:15)
--- NOTE | 2018-09-24 08:25 | PN ---
Subjective Date of Service: 09/24/18 Interval History: HD # 4 on 09/24/2018 72 yo M admitted with COPD exacerbation Overnight no acute events. VS: 97.9, normotensive, pulse: 50's satting >90% on room air This morning, feels quite well, tolerating breakfast, voding normally, feels his breathing is back to baseline. Eager to go home, discussed smoking cessation at bedside, he is contemplative Objective Active Medications: Acetaminophen (Tylenol Tab*) 650 mg PO Q6H PRN PRN Reason: pain/fever Albuterol (Ventolin Hfa Inhaler*) 2 puff INH Q4H PRN PRN Reason: SOB/WHEEZING Albuterol/Ipratropium (Duoneb (Albuterol 2.5 Mg/Ipratropium 0.5 Mg)) 1 neb INH Q4H PRN PRN Reason: WHEEZING Finasteride (Proscar Tab*) 5 mg PO DAILY [facility] Last Admin: 09/24/18 08:15 Dose: 5 mg Heparin Sodium (Porcine) (Heparin Vial(*)) 5,000 units SUBCUT Q8HR [facility] Last Admin: 09/24/18 05:37 Dose: 5,000 units Hydroxychloroquine Sulfate (Plaquenil Tab*) 200 mg PO BID [facility] Last Admin: 09/24/18 08:15 Dose: 200 mg Ceftriaxone Sodium 1 gm/ (Sodium Chloride) 50 mls @ 200 mls/hr IVPB Q24H [facility] Last Admin: 09/23/18 21:53 Dose: 200 mls/hr Azithromycin 500 mg/ Sodium (Chloride) 250 mls @ 250 mls/hr IVPB Q24H [facility] Last Admin: 09/23/18 22:24 Dose: 250 mls/hr Levothyroxine Sodium (Synthroid Tab*) 112 mcg PO DAILY@0600 [facility] Last Admin: 09/24/18 05:34 Dose: 112 mcg Prednisone (Deltasone Tab*) 40 mg PO DAILY [facility] Last Admin: 09/24/18 08:15 Dose: 40 mg Tamsulosin HCl (Flomax Cap*) 0.4 mg PO DAILY [facility] Last Admin: 09/24/18 08:15 Dose: 0.4 mg Tiotropium [place]/Olodaterol (Stiolto Respimat Inh [place] (60 Puff)(Nf)) 1 puff INH RT.BID [facility] Last Admin: 09/24/18 05:37 Dose: 1 puff Vital Signs - 8 hr 09/24/18 09/24/18 02:56 07:44 Temperature 97.6 F Pulse Rate 50 57 Respiratory 17 16 Rate Blood Pressure 116/68 108/58 (mmHg) O2 Sat by Pulse 94 93 Oximetry Oxygen Devices in Use Now: None Appearance: Well appearing man in NAD Eyes: No Scleral Icterus Ears/Nose/Mouth/Throat: NL Teeth, Lips, Gums Neck: NL Appearance and Movements; NL JVP Respiratory: Symmetrical Chest Expansion and Respiratory Effort, Clear to Auscultation Cardiovascular: NL Sounds; No Murmurs; No JVD, RRR Abdominal: NL Sounds; No Tenderness; No Distention, No Hepatosplenomegaly Lymphatic: No Cervical Adenopathy Extremities: No Edema Skin: No Rash or Ulcers Neurological: Alert and Oriented x 3 Result Diagrams: 09/24/18 07:00 09/24/18 07:00 Microbiology and Other Data: Microbiology 09/21/18 18:13 Aerobic Blood Culture - Preliminary Blood Venous No Growth Day 1 Anaerobic Blood Culture - Preliminary No Growth Day 1 09/21/18 16:42 Aerobic Blood Culture - Preliminary Blood Venous No Growth Day 1 Anaerobic Blood Culture - Preliminary No Growth Day 1 09/22/18 00:15 Legionella Urinary Antigen - Final Urine Negative Legionella Antigen Streptococcus pneumoniae Ag Screen - Final Negative S. pneumo Antigen 09/21/18 16:49 Influenza Types A,B Antigen - Final Nasopharyngeal Specimen received for Influenza A/B Molecular testing Assess/Plan/Problems-Billing Assessment: 56 yo M PMH lung ca s/p radiation, COPD not O2 dependent at baseline, BPH, HLD, cutaneous lupus and RA, hypothyroidism who presented with shortness of breath found to have COPD exacerbation most likely 2/2 to URI and CAP. - Patient Problems (1) CAP (community acquired pneumonia) Current Visit: Yes Status: Acute Code(s): J18.9 - PNEUMONIA, UNSPECIFIED ORGANISM SNOMED Code(s): 044304094 Comment: -Continue Azithromycin total for 5 days, to complete course 09/25 -Improving (2) COPD exacerbation Current Visit: No Status: Acute Code(s): J44.1 - CHRONIC OBSTRUCTIVE PULMONARY DISEASE W (ACUTE) EXACERBATION SNOMED Code(s): 590144564 Comment: -PO Prednisone 40 mg, total of 7 days -Improved -Continue Azithro (3) Rheumatoid arthritis Current Visit: No Status: Acute Code(s): M06.9 - RHEUMATOID ARTHRITIS, UNSPECIFIED SNOMED Code(s): 49934738 Comment: h/o , stable on Plaquenil (4) Hypothyroidism Current Visit: No Status: Chronic Code(s): E03.9 - HYPOTHYROIDISM, UNSPECIFIED SNOMED Code(s): 71041991 Comment: - Continue levothyroxine (5) Lung cancer Current Visit: No Status: Chronic Priority: High Code(s): C34.90 - MALIGNANT NEOPLASM OF UNSP PART OF UNSP BRONCHUS OR LUNG SNOMED Code(s): 181047510 Comment: - S/P radiation - Continue outpatient surveillance (6) BPH (benign prostatic hyperplasia) Current Visit: No Status: Chronic Code(s): N40.0 - BENIGN PROSTATIC HYPERPLASIA WITHOUT LOWER URINRY TRACT SYMP SNOMED Code(s): 170709083 Comment: - Continue finasteride and tamsulosin (7) HLD (hyperlipidemia) Current Visit: No Status: Chronic Code(s): E78.5 - HYPERLIPIDEMIA, UNSPECIFIED SNOMED Code(s): 12010358 Comment: - Continue atorvastatin (8) DVT prophylaxis Current Visit: No Status: Acute Code(s): IYF8669 - SNOMED Code(s): 917307432 Comment: - Heparin SQ Status and Disposition: Discharge to home
[2018-09-24 13:06] VITALS: BP 120/65
--- NOTE | 2018-09-24 21:42 | DS ---
CC: Marlyn Arnett NP * DISCHARGE SUMMARY: DATE OF ADMISSION: 09/21/18 DATE OF DISCHARGE: 09/24/18 PRIMARY DIAGNOSIS: Chronic obstructive pulmonary disease exacerbation. SECONDARY DIAGNOSES: 1. History of chronic obstructive pulmonary disease. 2. Lung cancer status post radiation. 3. Hyperlipidemia. 4. Benign prostatic hypertrophy. 5. Hypothyroidism. 6. Rheumatoid arthritis. 7. History of cutaneous lupus. MEDICATIONS ON DISCHARGE: 1. Finasteride 5 mg p.o. daily. 2. Plaquenil 200 mg p.o. b.i.d. 3. Levothyroxine 112 mg p.o. daily. 4. Tiotropium Spiriva 1 puff inhaled b.i.d. 5. Tamsulosin 0.4 mg p.o. daily. 6. Albuterol inhaler 1 puff q.4 hours p.r.n. as needed for shortness of breath. 7. Albuterol ipratropium nebulization 1 neb q.4 hours p.r.n. as needed for shortness of breath. 8. Azithromycin 250 mg p.o. daily for additional 2 days after discharge. 9. Nicotine patch 7 mg, apply 1 patch transdermally daily. 10. Prednisone 40 mg p.o. daily for additional 2 days after discharge. The medication changes on discharge were: 1. The addition of prednisone 40 mg p.o. daily for an additional 2 days after discharge. 2. Azithromycin 250 mg p.o. daily for 2 days additional after discharge. HISTORY OF PRESENT ILLNESS AND HOSPITAL COURSE: He is a 72-year-old man with the above past medical history who presented to the emergency room with shortness of breath after 4 days. He had had upper respiratory symptoms prior to that and was admitted with COPD exacerbation, uncomplicated. His labs on admission including lactic acid were unremarkable and his CBC did show a mild leukocytosis, otherwise unremarkable. His rapid flu test was negative in the emergency room and a chest x- ray showed a small right lung infiltrate, otherwise hyperinflation. His EKG was unremarkable in the emergency room. He was admitted to the hospitalist service and his hospital course by problem is as follows: 1. Chronic obstructive pulmonary disease exacerbation. He was started on ceftriaxone, Zithromax, steroids, and bronchodilators. He was discontinued off ceftriaxone on hospital day 2 and continued on Zithromax and azithromycin. His Legionella and pneumococcal antigens were negative. He did well on pulse dose steroids and then tapered to daily steroids. At the time of discharge, he was tolerating room air and would be discontinued on 2 days of p.o. oral prednisone for a total of 5 days. 2. Chronic problems. Benign prostatic hypertrophy. His home medications were continued. 3. Hypothyroidism. His home levothyroxine was continued. 4. Rheumatoid arthritis and cutaneous lupus. His home Plaquenil was continued. PHYSICAL EXAMINATION: His vitals on the day of discharge were stable and as follows: Temperature 97.6, pulse rate 57 and sinus, blood pressure 108/58, satting 92% on room air, respiratory rate was 16. He is a well-appearing man in no acute distress. He had symmetrical chest expansion. Clear to auscultation bilaterally with distant lung sounds, but no wheeze. Regular rate and rhythm. No murmurs, rubs, or gallops. Belly was soft , nontender, and nondistended. No edema. Alert and oriented x3. LABORATORY DATA: His labs on the day of discharge were notable for an H and H of 12.8 and 40, otherwise white blood cell count of 10.3 and platelets 200,000. His BMP was wholly unremarkable. IMAGING: His imaging was as noted: The chest x-ray and his micro was negative wholly including for influenza Legionella antigen and streptococcus antigen. Acute followup problems postdischarge are to: 1. Ensure prednisone taper. 2. Continue azithromycin. PRIMARY CARE PROVIDER: Marlyn Arnett NP at the [facility]. TIME SEEN: 35 minutes were spent in the planning of this discharge with over half of that spent at the bedside of the patient. [id number]/[facility] #: [id number] [facility]
== END 2018-09-24 14:41 | disposition home or self-care (01) | DRG 190 ==
LOC: ED 15:54 → MED 20:54 → OBSVTOIN 09-22 12:00
PROVIDERS: ADMIT Internal Medicine; ATTEND Internal Medicine
DX: J44.1 Chronic obstructive pulmonary disease with (acute) exacerbation (principal); J18.9 Pneumonia, unspecified organism; C34.90 Malignant neoplasm of unspecified part of unspecified bronchus or lung; E78.5 Hyperlipidemia, unspecified; N40.0 Benign prostatic hyperplasia without lower urinary tract symptoms; E03.9 Hypothyroidism, unspecified; M06.9 Rheumatoid arthritis, unspecified; M32.9 Systemic lupus erythematosus, unspecified; Z92.3 Personal history of irradiation; Z79.51 Long term (current) use of inhaled steroids; Z79.899 Other long term (current) drug therapy; Z88.0 Allergy status to penicillin; Z80.0 Family history of malignant neoplasm of digestive organs; Z87.891 Personal history of nicotine dependence
CPT/HCPCS: 36415; 71046; 80048; 80053; 81003; 82803; 83605; 83880; 84484; 85025; 85379; 85610; 86140; 87040; 87899; 93005; 94640; 99285; A9270-GY; J0456; J0696; J1644; J2920; J2930; J7512

== ENCOUNTER 2018-12-26 07:30 | Observation (INO) | payer OTHER ==
[2018-12-26] MEDS ORDERED: methylPREDNISolone 125 MG* 2 ML VIAL IV ONE (07:40)
[2018-12-26] MEDS ORDERED: Albuterol/Ipratropium NEB.SOL* Albuterol 2.5 MG/Ipratropium 0.5 MG 3 ML INH ONE (07:40)
[2018-12-26] MEDS ORDERED: Albuterol/Ipratropium NEB.SOL* Albuterol 2.5 MG/Ipratropium 0.5 MG 3 ML ONE (07:47)
[2018-12-26 08:01] LABS: Hematocrit 42 % (36-46); Hemoglobin 13.9 g/dL (14.0-18.0); Mean Corpuscular HGB Conc 33 g/dL (31-36); Mean Corpuscular Hemoglobin 27 pg (27-31); Mean Corpuscular Volume 83 fL (80-94); Mean Platelet Volume 9.2 fL (7.4-10.4); Platelet Count 259 10^3/uL (150-450); Red Blood Count 5.08 10^6 /uL (4.18-5.48); Red Cell Distribution Width 17 % (10.5-15); White Blood Count 9.4 10^3/uL (3.5-10.8)
[2018-12-26] MEDS ORDERED: Albuterol 0.5% CONC NEB.SOL* 5 MG/ML 20 ml BOT INH ONE (08:01)
--- NOTE | 2018-12-26 08:05 | ED ---
Shortness of Breath - HPI Summary HPI Summary: Patient is a 73-year-old male who presents emergency department for worsening shortness of breath and increased cough and sputum production over the last few days. Patient denies fever, chills, chest pain, abdominal pain, vomiting, diarrhea. Patient is a history of COPD. He does not wear oxygen at home. Symptoms are moderate in severity. No current modifying factors. - History of Current Complaint Chief Complaint: EDShortnessOfBreath Time Seen by Provider: 12/26/18 07:37 Hx Obtained From: Patient - Allergy/Home Medications Allergies/Adverse Reactions: Allergies Allergy/AdvReac Type Severity Reaction Status Date / Time Penicillins Allergy Thrush Verified 12/26/18 07:44 Home Medications: Home Medications Finasteride TAB* [Proscar TAB*] 5 mg PO DAILY 12/26/18 [History Confirmed ] Hydroxychloroquine TAB* [Plaquenil TAB*] 200 mg PO BID 12/26/18 [History Confirmed 12/26/18] Tamsulosin CAP* [Flomax CAP*] 0.4 mg PO DAILY 12/26/18 [History Confirmed ] Tiotropium Brom/Olodaterol(NF) [Stiolto Respimat Inh [place] (60 puff)(NF)] 2 puff INH DAILY 12/26/18 [History Confirmed 12/26/18] PMH/Surg Hx/FS Hx/Imm Hx Previously Healthy: Yes Endocrine/Hematology History: Reports: Hx Thyroid Disease Respiratory History: Reports: Hx Asthma, Hx Chronic Obstructive Pulmonary Disease (COPD), Hx Lung Cancer - Jul 2017, s/p radiation at [facility] , Other Respiratory Problems/Disorders - PNX History: Denies: Hx Dialysis Sensory History: Reports: Hx Contacts or Glasses, Hx Hearing Aid - left at home Denies: Hx Legally Blind Opthamlomology History: Reports: Hx Contacts or Glasses Denies: Hx Legally Blind Neurological History: Denies: Hx Developmental Delay Psychiatric History: Denies: Hx Autism - Cancer History Cancer Type, Location and Year: Lung CA diagnosed in July [address] [facility]. Hx Radiation Therapy: Yes Hx Palliative Cancer Treatment: No - Surgical History Surgery Procedure, Year, and Place: thyroidectomy. appendectomy Infectious Disease History: No Infectious Disease History: Denies: Traveled Outside the [place] in Last 30 Days - Family History Known Family History: Positive: Other - Colon CA-mother Negative: Cardiac Disease, Blood Disorder - Social History Occupation: Retired Lives: With Family Alcohol Use: None Hx Substance Use: No Substance Use Type: Reports: None Smoking Status (MU): Light Every Day Tobacco Smoker Type: Cigarettes Review of Systems Constitutional: Negative Negative: Fever, Chills Eyes: Negative ENT: Negative Cardiovascular: Negative Negative: Palpitations, Chest Pain Positive: Shortness Of Breath, Cough Gastrointestinal: Negative Negative: Abdominal Pain, Vomiting, Diarrhea Musculoskeletal: Negative Neurological: Negative All Other Systems Reviewed And Are Negative: Yes Physical Exam Triage Information Reviewed: Yes Vital Signs On Initial Exam: Initial Vitals Temp Pulse Resp BP Pulse Ox 98.3 F 109 27 149/85 88 12/26/18 07:31 12/26/18 07:31 12/26/18 07:31 12/26/18 07:31 12/26/18 07:31 Vital Signs Reviewed: Yes Appearance: Positive: Thin - Pt. sitting up in bed, mildy tachypneic with signs of respiratory distress. Skin: Positive: Warm, Dry Head/Face: Positive: Normal Head/Face Inspection Eyes: Positive: Normal, EOMI, QAMAR Neck: Positive: Supple Respiratory/Lung Sounds: Positive: Other - Diffuse inspiratory and expiratory wheeze throughout. Cardiovascular: Positive: Normal, RRR Abdomen Description: Positive: Nontender, Soft Musculoskeletal: Positive: Normal, Strength/ROM Intact. Negative: Edema Left, Edema Right Neurological: Positive: Normal, CN Intact II-III Psychiatric: Positive: Affect/Mood Appropriate Diagnostics - Vital Signs Vital Signs Temp Pulse Resp BP Pulse Ox 12/26/18 07:31 98.3 F 109 27 149/85 88 - Laboratory Lab Results: Lab Results 12/26/18 Range/Units 07:50 WBC 9.4 (3.5-10.8) 10^3/uL RBC 5.08 (4.18-5.48) 10^6 /uL Hgb 13.9 L (14.0-18.0) g/dL Hct 42 (36-46) % MCV 83 (80-94) fL MCH 27 (27-31) pg MCHC 33 (31-36) g/dL RDW 17 H (10.5-15) % Plt Count 259 (150-450) 10^3/uL MPV 9.2 (7.4-10.4) fL Neut % (Auto) Pending Lymph % (Auto) Pending [place] % (Auto) Pending Eos % (Auto) Pending Baso % (Auto) Pending Absolute Neuts (auto) Pending Absolute Lymphs (auto) Pending Absolute Monos (auto) Pending Absolute Eos (auto) Pending Absolute Basos (auto) Pending Absolute Nucleated RBC Pending Nucleated RBC % Pending Result Diagrams: 12/27/18 07:12 12/27/18 07:12 Lab Statement: Any lab studies that have been ordered have been reviewed, and results considered in the medical decision making process. Course/Dx - Course Course Of Treatment: Patient presenting for worsening shortness of breath and cough palpation of COPD. He is afebrile. Oxygen saturation 88% room air which is low. Patient appears to be in mild respiratory distress. Respiratory was called and patient was started on a DuoNeb treatment and then an hour-long albuterol treatment. Patient given IV Solu-Medrol. Chest x-ray is negative for infiltrate, reading per radiology. Labs are unremarkable other than mildly elevated troponin of 0.04. EKG done at 0748 shows a sinus rhythm of 88bpm, normal axis, no ST elevation or depression. O2 saturation improved to high 90's after hour long treatment and pt. was feeling much better. He was tried off of O2 while sitting and dropped again to mid 80's. Hospitalist consulted for admission. I spoke with Dr. Nobles who accepted pt. to her service. - Diagnoses Differential Diagnosis/HQI/PQRI: Positive: CHF, Chest Wall Pain, COPD Exacerbation, SC, Pneumonia Provider Diagnoses: COPD exacerbation, Hypoxia Discharge - Sign-Out/Discharge Documenting (check all that apply): Patient Departure Patient Received Moderate/Deep Sedation with Procedure: No - Discharge Plan Condition: Stable Disposition: ADMITTED TO [facility] - Billing Disposition and Condition Condition: STABLE Disposition: Admitted to [facility]
[2018-12-26] MEDS ORDERED: NS 0.9% 1000 ML** 1,000 ML IV ONE (08:08)
[2018-12-26 08:14] LABS: Activated Partial Thrombo Time 34.1 seconds (26.0-36.3); INR 1.13 (0.82-1.09)
[2018-12-26 08:21] LABS: ALT 7 U/L (7-52); AST 14 U/L (13-39); Albumin 3.9 g/dL (3.2-5.2); Albumin/Globulin Ratio 1.3 (1-3); Alkaline Phosphatase 73 U/L (34-104); Anion Gap 8 mmol/L (2-11); BUN/Creatinine Ratio 23.6 (8-20); Blood Urea Nitrogen 13 mg/dL (6-24); C Reactive Protein 3.22 mg/L (<8.01); CO2 Carbon Dioxide 26 mmol/L (22-32); Calcium 9.3 mg/dL (8.6-10.3); Chloride 105 mmol/L (101-111); EGFR African American 176.2 (>60); EGFR Non-African American 145.6 (>60); Glucose 107 mg/dL (70-100); Potassium 3.9 mmol/L (3.5-5.0); Sodium 139 mmol/L (135-145); Total Protein 6.9 g/dL (6.4-8.9)
[2018-12-26 08:27] LABS: Troponin I 0.04 ng/mL (<0.04)
[2018-12-26 08:37] LABS: ABS Basophils 0.1 10^3/ul (0-0.2); ABS Eosinophils 0.4 10^3/ul (0-0.6); ABS Lymphocytes 0.6 10^3/ul (1.0-4.8); ABS Monocytes 0.8 10^3/ul (0-0.8); ABS Neutrophils 7.5 10^3/ul (1.5-7.7)
[2018-12-26 08:39] LABS: ABS Neutrophils 7.61 10^3/ul (1.5-7.7); Lymphocytes % 5 %; Monocytes % 12 %; Neutrophil % 81 %
[2018-12-26 08:40] LABS: ABS Basophils 0.094 10^3/ul (0-0.2); ABS Eosinophils 0.094 10^3/ul (0-0.6)
[2018-12-26] MEDS ORDERED: Azithromycin IV(*) 250 MG in NS 0.9% 250 ML* 250 ML IVPB ONE (11:08)
[2018-12-26] MEDS ORDERED: cefTRIAXone VIAL(*) 500 MG in NS 0.9% 50 ML* 50 ML IVPB ONE (11:08)
[2018-12-26] MEDS ORDERED: Azithromycin 500 mg/250 ml NS 500 MG/250 ML BAG IVPB ONE (11:09)
[2018-12-26] MEDS ORDERED: ED cefTRIAXone 1 GM/50 ML 1 GM/50 ML PREMIX.SET IVPB ONE (11:09)
[2018-12-26 11:25] LABS: Troponin I 0.04 ng/mL (<0.04)
[2018-12-26] MEDS ORDERED: cefTRIAXone(*) 1 GM ADVAN/BAG ONE (11:39)
[2018-12-26] MEDS ORDERED: Albuterol 2.5 MG/3 ML NEB.SOL* (0.083%) INH PRN (11:50)
[2018-12-26] MEDS ORDERED: Acetaminophen TAB* 325 MG PO PRN (11:50)
[2018-12-26] MEDS ORDERED: PTO:Albuterol HFA INHALER* 8 gm MDI INH PRN (11:53)
[2018-12-26] MEDS: Enoxaparin(*) 40 MG/0.4 ML SYR SUBCUT SCH (13:19)
[2018-12-26] MEDS: Albuterol/Ipratropium NEB.SOL* Albuterol 2.5 MG/Ipratropium 0.5 MG 3 ML INH PRN ×2 (13:51→23:03)
--- NOTE | 2018-12-26 16:36 | HP ---
CC: Marlyn Arnett NP* HISTORY AND PHYSICAL: DATE OF ADMISSION: 12/26/18 PROVIDER: Hayley Barton NP PRIMARY CARE PROVIDER: Marlyn Arnett NP ATTENDING PHYSICIAN WHILE IN THE HOSPITAL: Dr. Kristen Nobles* (dictated by Hayley Barton NP). CHIEF COMPLAINT: Shortness of breath. HISTORY OF PRESENT ILLNESS: Mr. Edwards is a 73-year-old male with past medical history significant for lung cancer, status post radiation; COPD; hyperlipidemia ; BPH; hypothyroid; rheumatoid arthritis; cutaneous lupus, who presented to the emergency room with complaints of shortness of breath. The patient reports that this morning approximately 4 a.m. he woke up to go to the bathroom. He reports that he ambulated to the bathroom and felt very weak when he got to the bathroom. He got himself back to bed, again still feeling weak and very short of breath, so he took his inhaler at that time. The patient reports that his shortness of breath did not get any better, so he thought he should come to the emergency room for further evaluation. The patient reports that he got in his car to drive himself to the emergency room and started driving towards the hospital, again becoming very short of breath. He went to use his inhaler in the car and it was empty, so he turned around to go back home. He reports that upon returning home, was unable to get out of his vehicle and blew the horn until his grandson came and found him to bring him his inhaler. He reports that he drove to the emergency room and at that time he waved staff at the hospital down to help get him into the emergency room as he does report that he remained short of breath. The patient does report that he was feeling cold, but denies any fever. He denies any increased sputum production or change in consistency. He reports that he does not use oxygen at home. He does report that he has had a dry nonproductive cough and increased shortness of breath since approximately 4 a.m. He denies any fever, chest pain, edema, loss of appetite, nausea, vomiting, diarrhea, abdominal pain, hematuria, dysuria, focal weakness or sensory loss, any dysphagia, arthralgias, myalgias, rashes, lesions or open sores. Denies any psychosis or anxiety. While in the emergency room, the patient had breathing treatments and was given Solu-Medrol. The patient reports that after the breathing treatments and Solu- Medrol, his breathing is feeling better and closer to his baseline. At the time of evaluation, the patient is on 2 L via face mask of oxygen. His O2 saturations were 93%. His respirations were easy at 18 to 20 breaths per minute. The emergency room staff notes the patient did desat to 87% to 88% on room air and due to his hypoxia and oxygen requirements, we were asked to see and evaluate him for admission. PAST MEDICAL HISTORY: Significant for: 1. Lung cancer, status post radiation. 2. Hyperlipidemia. 3. BPH. 4. Hypothyroidism. 5. Rheumatoid arthritis. 6. Cutaneous lupus. 7. COPD. PAST SURGICAL HISTORY: 1. Thyroidectomy. 2. Appendectomy. 3. History of pneumothorax with chest tube placement in 2012. HOME MEDICATIONS: Include: 1. Albuterol HFA 2 puffs inhaled q.4 hours p.r.n. shortness of breath. 2. Finasteride 5 mg p.o. daily. 3. Hydroxychloroquine 200 mg p.o. b.i.d. 4. Levothyroxine 112 mcg p.o. daily. 5. Stiolto Respimat 1 puff inhaled b.i.d. 6. Tamsulosin 0.4 mg p.o. daily. ALLERGIES: To PENICILLIN. FAMILY HISTORY: No reported history of coronary artery disease. Father with a history of diabetes. Mother passed at age 84 due to colon cancer. Father passed at 79 due to unknown cause. SOCIAL HISTORY: The patient is a current smoker of approximately 1 pack per day for more than 50 years. Denies any history of alcohol or illicit drug use. Surrogate decision maker in the event he is unable to make his own decisions is his son, Riley Edwards. REVIEW OF SYSTEMS: A review of 14 systems was completed. All pertinent positive and negative findings are per the HPI. PHYSICAL EXAMINATION GENERAL: At this time, Mr. Edwards is a pleasant gentleman, sitting on the stretcher in the emergency room. He does not appear to be in any acute respiratory distress. VITAL SIGNS: Blood pressure 125/77, heart rate is 85, respirations are 20, O2 saturation 98% on 2 L, temperature was 98.2. HEENT: Head is atraumatic, normocephalic. Eyes: EOMs are intact. Sclerae anicteric and not pale. Oral mucosa appeared to be moist. NECK: Supple. LUNGS: Diminished bilaterally with a few scattered expiratory wheezes. CARDIAC: S1, S2. Regular rate and rhythm. No murmurs, rubs, or gallops. ABDOMEN: Soft and nontender. Bowel sounds are present x4. EXTREMITIES: Pedal pulses are +2 bilaterally. He is able to move all 4 extremities. There is no clubbing or cyanosis. NEUROLOGIC: He is awake, alert, oriented x3. No gross focal deficits are noted. DIAGNOSTIC STUDIES/LAB DATA: WBCs were 9.4, RBCs 5.08, hemoglobin 13.9, hematocrit was 42, platelet count 259. INR was 1.13. Sodium 139, potassium 3.9 , chloride 105, carbon dioxide was 26, anion gap was 8, BUN was 13, creatinine 0.55, glucose was 107, lactic acid 1.0, calcium was 9.3. Total bilirubin 0.40, ASTs were 14, ALTs were 7, alkaline phosphatase was 73. Troponin was 0.04 x2, C -reactive protein was 3.22, BNP was 15. The patient had a chest x-ray, radiologist's impression: Stigmata of advanced obstructive lung disease with emphysema. No acute pulmonary or cardiac process was evident. He had an electrocardiogram, which showed sinus rhythm at a rate of 88. ASSESSMENT AND PLAN: Mr. Edwards is a 73-year-old male with a past medical history significant for lung cancer, status post radiation; chronic obstructive pulmonary disease; hyperlipidemia; benign prostatic hyperplasia; hypothyroid; rheumatoid arthritis and cutaneous lupus, who presented to the emergency room with acute worsening shortness of breath since 4 a.m. He will be admitted under observation for: 1. Chronic obstructive pulmonary disease exacerbation with acute hypoxic respiratory failure. The patient is requiring O2 to maintain saturations above 90%. I suspect this is related to chronic obstructive pulmonary disease exacerbation. We will place him on nebulizers and give him steroids. He did receive Solu-Medrol 125 mg in the emergency room. We will continue him on prednisone p.o. daily. He was given azithromycin and ceftriaxone in the emergency room. I will continue him on azithromycin. I will get a walking O2 saturation in the morning. If the patient's symptoms continue to be resolved and improved, I suspect he will return home. I would recommend that the patient have nebulizer treatments for home as the patient does not currently have a nebulizer at home at this time. 2. Elevated troponin. I suspect that his elevated troponin is related to demand ischemia due to his shortness of breath. His troponin is currently trending down. The patient has denied any chest pain throughout this episode. We will continue to monitor him on telemetry and trend his troponin. 3. Hypothyroidism. The patient will continue on levothyroxine 112 mcg p.o. daily. 4. Rheumatoid arthritis. The patient will continue on Plaquenil 200 mg p.o. b.i.d. 5. Benign prostatic hyperplasia. The patient will continue on Proscar 5 mg p.o. daily and tamsulosin 0.4 mg p.o. daily. 6. FEN: The patient can have a regular diet. 7. Code status: He is a full code. 8. DVT prophylaxis: I will place him on Lovenox subcu. 9. Disposition: The patient will be placed inpatient on the medical floor on telemetry. TIME SPENT: Time spent on this admission was 60 minutes, greater than half that time was spent at the bedside reviewing events leading thus far to his hospitalization, performing my physical exam, and reviewing my plan of care. I have discussed this with my attending, Dr. Kristen Nobles; she is in agreement with my plan. HAYLEY BARTON, JAKE [id number]/[facility] [place] #: [id number] RUMA
[2018-12-26] MEDS: Hydroxychloroquine TAB* 200 MG PO SCH (22:39)
[2018-12-27] MEDS ORDERED: Levothyroxine TAB* 112 MCG TAB PO SCH (06:00)
[2018-12-27 07:41] LABS: ABS Basophils 0.1 10^3/ul (0-0.2); ABS Eosinophils 0.1 10^3/ul (0-0.6); ABS Lymphocytes 1.1 10^3/ul (1.0-4.8); ABS Monocytes 1.4 10^3/ul (0-0.8); ABS Neutrophils 9.8 10^3/ul (1.5-7.7); ABS Nucleated RBC 0 10^3/ul; Eosinophil % 0.6 %; Hematocrit 39 % (36-46); Hemoglobin 12.5 g/dL (14.0-18.0); Mean Corpuscular HGB Conc 32 g/dL (31-36); Mean Corpuscular Hemoglobin 27 pg (27-31); Mean Corpuscular Volume 84 fL (80-94); Mean Platelet Volume 9.4 fL (7.4-10.4); Nucleated Red Blood Cells % 0; Platelet Count 234 10^3/uL (150-450); Red Blood Count 4.67 10^6 /uL (4.18-5.48); Red Cell Distribution Width 17 % (10.5-15); White Blood Count 12.5 10^3/uL (3.5-10.8)
[2018-12-27 08:04] LABS: BUN/Creatinine Ratio 30.8 (8-20); Calcium 9.1 mg/dL (8.6-10.3); EGFR Non-African American 155.4 (>60)
[2018-12-27] MEDS: Hydroxychloroquine TAB* 200 MG PO SCH (08:59)
[2018-12-27] MEDS ORDERED: predniSONE TAB* 50 MG PO SCH (09:00)
[2018-12-27] MEDS ORDERED: Tamsulosin CAP* 0.4 MG PO SCH (09:00)
[2018-12-27] MEDS ORDERED: OLODATEROL INH SCH (09:00)
[2018-12-27] MEDS ORDERED: TIOTROPIUM BROM INH SCH (09:00)
[2018-12-27] MEDS ORDERED: MDI INH SCH (09:00)
[2018-12-27] MEDS ORDERED: Finasteride TAB* 5 MG PO SCH (09:00)
[2018-12-27] MEDS ORDERED: Azithromycin 500 mg/250 ml NS 500 MG/250 ML BAG IVPB SCH (11:00)
[2018-12-27] MEDS: Enoxaparin(*) 40 MG/0.4 ML SYR SUBCUT SCH (11:55)
[2018-12-27 13:32] VITALS: BP 114/62
--- NOTE | 2018-12-28 00:22 | DS ---
DISCHARGE SUMMARY: DATE OF ADMISSION: 12/26/18 DATE OF DISCHARGE: 12/27/18 ADMITTING PROVIDER: Hayley Barton NP PRIMARY CARE PROVIDER: Marlyn Arnett NP ATTENDING PHYSICIAN ON DAY OF DISCHARGE: Elmer Hall MD CHIEF COMPLAINT: Shortness of breath. PRINCIPAL DIAGNOSIS: Chronic obstructive pulmonary disease exacerbation. HISTORY OF PRESENT ILLNESS AND HOSPITAL COURSE: Arash Edwards is a 73-year-old male with past medical history of lung cancer, status post radiation; COPD; hyperlipidemia; BPH; hypothyroidism; rheumatoid arthritis (on Plaquenil); cutaneous lupus, who presented to the emergency room with the complaints of shortness of breath starting 4 a.m. the morning of admission. Please see H and P for full details. He felt very weak, took his inhaler without relief. When he tried to take his inhaler again in his car, he noticed it was empty, had to call for assistance from his grandson and drove to the emergency room. He denies fevers. He had a nonproductive cough. No sick contacts. Denied chest pain, edema. He had a chest x-ray, which did not show any focal infiltrates, but it did show stigmata of advanced obstructive lung disease and emphysema. No acute pulmonary or cardiac process was evident. He was afebrile without leukocytosis. Troponin was 0.04, 0.04, and 0.03. BNP was 15. CRP was 3.22. He was given 125 mg of Solu-Medrol in the emergency room, started on azithromycin and ceftriaxone. He is transitioned to p.o. prednisone on hospital day #2. In the emergency room, he had required some O2 to maintain 90% . He was continued on inhalers and by hospital day #2, he was able to wean off oxygen, felt it was much improved. Sputum culture was obtained that is still pending. Gram stain did show 3+ neutrophils and 2+ epithelial cells. was growing normal melani. He fortunately had a followup scheduled with his primary care provider, Marlyn Arnett already on day after discharge and unfortunately though he missed his appointment in [place] with his bowling pin refinisher and his recommendation to possibly get him setup with the nebulizer treatment as an outpatient. DISCHARGE MEDICATIONS: Include, 1. Azithromycin 250 mg p.o. daily x3 tabs (new). 2. Ventolin 2 puffs inhale q.4 hours p.r.n. 3. Proscar 5 mg p.o. daily. 4. Plaquenil 200 mg p.o. b.i.d. 4 tabs (new). 5. Synthroid 112 mcg p.o. daily. 6. Prednisone 50 mg p.o. daily. 7. Tamsulosin 0.4 mg p.o. daily. 8. Stiolto Respimat (tiotropium bromide/olodaterol) 2 puffs inhaled daily. FOLLOWUP: He should see Marlyn Arnett day after discharge and reschedule his pulmonology appointment up in [place]. DISPOSITION: Home. CONDITION: Improved. TIME SPENT ON DISCHARGE: Thirty five minutes. [id number] #: [id number] RUMA
== END 2018-12-27 15:53 | disposition home or self-care (01) ==
LOC: ED 07:30 → MEDTELE 11:50
PROVIDERS: ADMIT Internal Medicine; ATTEND Internal Medicine
DX: J44.1 Chronic obstructive pulmonary disease with (acute) exacerbation (principal); R06.02 Shortness of breath; Z85.118 Personal history of other malignant neoplasm of bronchus and lung; E78.5 Hyperlipidemia, unspecified; N40.0 Benign prostatic hyperplasia without lower urinary tract symptoms; E03.9 Hypothyroidism, unspecified; M06.9 Rheumatoid arthritis, unspecified; L93.1 Subacute cutaneous lupus erythematosus; Z88.0 Allergy status to penicillin; F17.210 Nicotine dependence, cigarettes, uncomplicated
CPT/HCPCS: 36415; 71045; 80048; 80053; 83605; 83880; 84484; 85025; 85060; 85610; 85730; 86140; 87070; 87205; 93005; 94640; 96361; 96372; 96374; 96375; 99283; A9270-GY; G0378; J0456; J0696; J1650; J2930; J7512; J7611

== ENCOUNTER 2019-06-02 08:00 | Emergency (ER) | payer OTHER ==
[2019-06-02] MEDS ORDERED: Albuterol/Ipratropium NEB.SOL* Albuterol 2.5 MG/Ipratropium 0.5 MG 3 ML INH ONE ×2 (08:21→12:05)
--- NOTE | 2019-06-02 08:24 | ED ---
Shortness of Breath - HPI Summary HPI Summary: This pt is a 73 Y/O M presenting to [facility] with a CC of SOB that has been increasing in severity since last night. He states that he was feeling fine yesterday and was active enough throughout the day. He was woken up today due to his SOB. He states that he has wheezing. He denies any fever, chills, CP, N/V , and abdominal pain. He states no aggravating or alleviating factors. He has a PMHx of COPD but states that he only takes medicine and has no current breathing treatments. - History of Current Complaint Chief Complaint: EDShortnessOfBreath Time Seen by Provider: 06/02/19 08:09 Hx Obtained From: Patient Onset/Duration: Sudden Onset, Lasting Hours - since last night, Still Present, Worse Since - onset Timing: Constant Current Severity: None Dyspnea At: Rest Aggravating Factors: Nothing Alleviating Factors: Nothing Associated Signs & Symptoms: Negative - fever, chills, CP, N/V, and abdominal pain, Wheezing - Allergy/Home Medications Allergies/Adverse Reactions: Allergies Allergy/AdvReac Type Severity Reaction Status Date / Time oxycodone Allergy Unknown Verified 06/02/19 08:06 Reaction Details Penicillins Allergy Thrush Verified 06/02/19 08:06 prednisone Allergy Unknown Verified 06/02/19 08:06 Reaction Details PMH/Surg Hx/FS Hx/Imm Hx Previously Healthy: Yes Endocrine/Hematology History: Reports: Hx Thyroid Disease Respiratory History: Reports: Hx Asthma, Hx Chronic Obstructive Pulmonary Disease (COPD), Hx Lung Cancer - Jul 2017, s/p radiation at [facility] , Hx Pneumonia, Other Respiratory Problems/Disorders - PNX History: Denies: Hx Dialysis Sensory History: Reports: Hx Contacts or Glasses, Hx Hearing Aid - left at home Denies: Hx Legally Blind Opthamlomology History: Reports: Hx Contacts or Glasses Denies: Hx Legally Blind Neurological History: Reports: Other Neuro Impairments/Disorders - neuropathy Denies: Hx Developmental Delay Psychiatric History: Denies: Hx Autism - Cancer History Cancer Type, Location and Year: Lung CA diagnosed in July 2017 at the [facility]. Hx Radiation Therapy: Yes Hx Palliative Cancer Treatment: No - Surgical History Surgery Procedure, Year, and Place: thyroidectomy. appendectomy Infectious Disease History: No Infectious Disease History: Denies: Traveled Outside the [place] in Last 30 Days - Family History Known Family History: Positive: Other - Colon CA-mother Negative: Cardiac Disease, Blood Disorder - Social History Alcohol Use: None Hx Substance Use: No Substance Use Type: Reports: None Smoking Status (MU): Light Every Day Tobacco Smoker Type: Cigarettes Review of Systems Negative: Fever, Chills Negative: Chest Pain Positive: Shortness Of Breath, Other - wheezing Negative: Abdominal Pain, Vomiting, Nausea All Other Systems Reviewed And Are Negative: Yes Physical Exam - Summary Physical Exam Summary: Appearance: The patient is well-nourished in no acute distress and in no acute pain. Skin: The skin is warm and dry and skin color reflects adequate perfusion. HEENT: The head is normocephalic and atraumatic. The pupils are equal and reactive. The conjunctivae are clear and without drainage. Nares are patent and without drainage. Mouth reveals moist mucous membranes and the throat is without erythema and exudate. The external ears are intact. The ear canals are patent and without drainage. The tympanic membranes are intact. Neck: The neck is supple with full range of motion and non-tender. There are no carotid bruits. There is no neck vein distension. Respiratory: Chest is non-tender. Decreased breath sounds, Increased E-I, Increased AP diameter in his chest and breath sounds are symmetrical and equal. Cardiovascular: Heart is regular rate and rhythm. There is no murmur or rub auscultated. There is no peripheral edema and pulses are symmetrical and equal. Abdomen: The abdomen is soft and non-tender. There are normal bowel sounds heard in all four quadrants and there is no organomegaly palpated. Musculoskeletal: There is no back tenderness noted. Extremities are non-tender with full range of motion. There is good capillary refill. There is no peripheral edema or calf tenderness elicited. Neurological: Patient is alert and oriented to person, place and time. The patient has symmetrical motor strength in all four extremities. Cranial nerves are grossly intact. Deep tendon reflexes are symmetrical and equal in all four extremities. Psychiatric: The patient has an appropriate affect and does not exhibit any anxiety or depression. Triage Information Reviewed: Yes Vital Signs On Initial Exam: Initial Vitals Temp Pulse Resp BP Pulse Ox 98.8 F 74 16 163/99 91 06/02/19 08:01 06/02/19 08:01 06/02/19 08:01 06/02/19 08:01 06/02/19 08:01 Vital Signs Reviewed: Yes Diagnostics - Vital Signs Vital Signs Temp Pulse Resp BP Pulse Ox 06/02/19 08:01 98.8 F 74 16 163/99 91 - Laboratory Result Diagrams: 06/02/19 08:44 06/02/19 08:44 Lab Statement: Any lab studies that have been ordered have been reviewed, and results considered in the medical decision making process. - Radiology CXR Radiology Interpretation Completed By: Radiologist Summary of Radiographic Findings: HYPERINFLATION, CONSISTENT WITH COPD. NO ACTIVE CARDIOPULMONARY DISEASE. ED physician has reviewed this report. - EKG 0831 Cardiac Rate: Bradycardia - 63 BPM EKG Rhythm: Sinus Bradycardia ST Segment: Normal Ectopy: None Summary of EKG Findings: Normal sinus rhythm, normal ST, no ectopy, no STEMI with sinus bradycardia of [address] Toth at 0835 06/02/19. Course/Dx - Course Course Of Treatment: Mr. Edwards presented complaining of shortness of breath today he was concerned that it may have been caused by hitting IV contrast dye for CAT scan recently. He denies any fever or chills or productive cough. He was nontoxic in appearance with stable vitals however he clearly had respiratory distress. He has a long history of COPD. He was given a series of nebulizers as well as some Solu-Medrol. He stated he felt very significantly improved he still looked as though he had significant shortness of breath but he ambulated about the department with no subjective complaints and a pulse ox maintaining above 90-93%. He wanted to be discharged and I discharged him with a Medrol Dosepak. - Diagnoses Provider Diagnoses: COPD exacerbation Discharge ED - Sign-Out/Discharge Documenting (check all that apply): Patient Departure - discharge Patient Received Moderate/Deep Sedation with Procedure: No - Discharge Plan Condition: Stable Disposition: HOME Prescriptions: Albuterol/Ipratropium NEB.SETH* [Duoneb (Albuterol 2.5 MG/Ipratropium 0.5 MG)] 1 neb INH Q4H #30 neb.soln methylPREDNISolone [Medrol Dosepak 4 MG*] 4 mg PO .SEE ANOOP INSTRUCTION #1 tab Patient Education Materials: COPD (Chronic Obstructive Pulmonary Disease) (ED) Referrals: Marlyn Arnett [Primary Care Provider] - 2 Days Additional Instructions: PLEASE FOLLOW UP WITH YOUR PRIMARY CARE PROVIDER IN 1-3 DAYS AND RETURN TO THE EMERGENCY DEPARTMENT FOR ANY NEW OR WORSENING SYMPTOMS. - Billing Disposition and Condition Condition: STABLE Disposition: Home - Attestation Statements Document Initiated by Stephen: Yes Documenting Scribe: Jair Moses Provider For Whom Stephen is Documenting (Include Credential): Eddie Toth MD Scribe Attestation: IJair, scribed for Eddie Toth MD on 06/02/19 at 1810. Scribe Documentation Reviewed: Yes Provider Attestation: The documentation as recorded by the Jair rosario accurately reflects the service I personally performed and the decisions made by me, Eddie Toth MD Status of Scribe Document: Viewed
[2019-06-02] MEDS ORDERED: methylPREDNISolone 125 MG* 2 ML VIAL IV ONE (08:25)
[2019-06-02 08:52] LABS: ABS Basophils 0.1 10^3/ul (0-0.2); ABS Eosinophils 0.8 10^3/ul (0-0.6); ABS Lymphocytes 0.7 10^3/ul (1.0-4.8); ABS Monocytes 0.7 10^3/ul (0-0.8); ABS Neutrophils 4.4 10^3/ul (1.5-7.7); Eosinophil % 11.4 %; Hematocrit 44 % (42-52); Hemoglobin 14.9 g/dL (14.0-18.0); Lymphocyte % 10.3 %; Mean Corpuscular HGB Conc 34 g/dL (31-36); Mean Corpuscular Hemoglobin 30 pg (27-31); Mean Corpuscular Volume 88 fL (80-94); Mean Platelet Volume 8.8 fL (7.4-10.4); Platelet Count 216 10^3/uL (150-450); Red Blood Count 5.03 10^6 /uL (4.18-5.48); Red Cell Distribution Width 16 % (10-15); White Blood Count 6.7 10^3/uL (3.5-10.8)
[2019-06-02 08:57] LABS: INR 1.08 (0.82-1.09)
[2019-06-02 09:09] LABS: Albumin 4.2 g/dL (3.2-5.2); Albumin/Globulin Ratio 1.6 (1-3); BUN/Creatinine Ratio 21.3 (8-20); C Reactive Protein 2.82 mg/L (<8.01); Calcium 9.3 mg/dL (8.6-10.3); EGFR African American 156.3 (>60); EGFR Non-African American 129.2 (>60); Globulin 2.6 g/dL (2-4); Potassium 3.8 mmol/L (3.5-5.0); Total Bilirubin 0.7 mg/dL (0.2-1.0); Total Protein 6.8 g/dL (6.4-8.9)
[2019-06-02 15:06] VITALS: BP 127/74
== END 2019-06-02 15:06 | disposition home or self-care (01) ==
LOC: ED 08:00
DX: J44.1 Chronic obstructive pulmonary disease with (acute) exacerbation (principal); E07.9 Disorder of thyroid, unspecified; F17.210 Nicotine dependence, cigarettes, uncomplicated; Z85.118 Personal history of other malignant neoplasm of bronchus and lung; Z88.5 Allergy status to narcotic agent; Z88.0 Allergy status to penicillin; Z88.8 Allergy status to other drugs, medicaments and biological substances; Z79.890 Hormone replacement therapy; Z79.899 Other long term (current) drug therapy
CPT/HCPCS: 36415; 71046; 80053; 83605; 83880; 84484; 85025; 85610; 86140; 87040; 93005; 96374; 99284; A9270-GY; J2930

== ENCOUNTER 2019-06-07 04:49 | Emergency (ER) | payer OTHER ==
--- NOTE | 2019-06-07 05:09 | ED ---
GI/ HPI - HPI Summary HPI Summary: This pt is a 73 Y/O M presenting to [facility] with a CC of inability to urinate due to his medications. He states that he usually self-catheters at home but was unable to today. He states that the last time he urinated was yesterday. He states that he was unsuccessful in using a self-catheter kit due to a blockage that he was unable to get around. He currently rates the pain that is associated with his bladder a 9/10 in severity. He states no alleviating factors but states that the blockage and inability to place a catheter is causing increased pain. He has a PMHx of Thyroid disease and lung cancer. - History of Current Complaint Chief Complaint: EDUrogenitalProblems Time Seen by Provider: 06/07/19 04:58 Stated Complaint: UNABLE TO URINATE PER PT Hx Obtained From: Patient Onset/Duration: Started Hours Ago, Still Present, Worse Since - onset Timing: Constant Severity: Moderate Current Severity: Severe Pain Intensity: 9 Location of Pain: Groin, Other - bladder Associated Signs and Symptoms: Positive: Abdominal Pain - bladder, Other: - states blockage in his urethra,. Negative: Nausea, Vomiting, Fever, Chills Aggravating Factor(s): Urination - Pt states that he can't urinate Alleviating Factor(s): Nothing - Additional Pertinent History Primary Care Physician: MECCA - Allergy/Home Medications Allergies/Adverse Reactions: Allergies Allergy/AdvReac Type Severity Reaction Status Date / Time oxycodone Allergy Unknown Verified 06/02/19 08:06 Reaction Details Penicillins Allergy Thrush Verified 06/02/19 08:06 prednisone Allergy Unknown Verified 06/02/19 08:06 Reaction Details Home Medications: Home Medications Albuterol/Ipratropium NEB.SETH* [Duoneb (Albuterol 2.5 MG/Ipratropium 0.5 MG)] 1 neb INH Q4H PRN 06/07/19 [History Confirmed 06/07/19] PMH/Surg Hx/FS Hx/Imm Hx Previously Healthy: Yes Endocrine/Hematology History: Reports: Hx Thyroid Disease Respiratory History: Reports: Hx Asthma, Hx Chronic Obstructive Pulmonary Disease (COPD), Hx Lung Cancer - Jul 2017, s/p radiation at [facility] , Hx Pneumonia, Other Respiratory Problems/Disorders - PNX History: Denies: Hx Dialysis Sensory History: Reports: Hx Contacts or Glasses, Hx Hearing Aid - left at home Denies: Hx Legally Blind Opthamlomology History: Reports: Hx Contacts or Glasses Denies: Hx Legally Blind Neurological History: Reports: Other Neuro Impairments/Disorders - neuropathy Denies: Hx Developmental Delay Psychiatric History: Denies: Hx Autism - Cancer History Cancer Type, Location and Year: Lung CA diagnosed in July 2017 at the [facility]. Hx Radiation Therapy: Yes Hx Palliative Cancer Treatment: No - Surgical History Surgical History: Yes Surgery Procedure, Year, and Place: thyroidectomy. appendectomy - Immunization History Immunizations Up to Date: Yes Infectious Disease History: No Infectious Disease History: Denies: Traveled Outside the [place] in Last 30 Days - Family History Known Family History: Positive: Other - Colon CA-mother Negative: Cardiac Disease, Blood Disorder - Social History Occupation: Retired Lives: Alone Alcohol Use: None Hx Substance Use: No Substance Use Type: Reports: None Hx Tobacco Use: Yes Smoking Status (MU): Light Every Day Tobacco Smoker Type: Cigarettes Review of Systems Negative: Fever, Chills Negative: Chest Pain Negative: Shortness Of Breath Positive: Abdominal Pain - baldder . Negative: Vomiting, Nausea Genitourinary: Negative - Pt states that he has not urinated in a day , Other - blockage in his urethra Negative: Headache All Other Systems Reviewed And Are Negative: Yes Physical Exam - Summary Physical Exam Summary: Appearance: Well-appearing, Well-nourished, lying in bed comfortably Skin: Warm, dry, no obvious rash Eyes: sclera anicteric, no conjunctival pallor ENT: mucous membranes moist, pharynx appears normal Neck: Supple, nontender Respiratory: Clear to auscultation, no signs of respiratory distress Cardiovascular: Normal S1, S2. No murmurs. Normal distal pulses in tibial and radial bilaterally. Abdomen: Soft, nontender, normal active bowel sounds present Musculoskeletal: Normal, Strength/ROM Intact Neurological: A&Ox3, awake and alert, mentation is normal, speech is fluent and appropriate Psychiatric: affect is normal, does not appear anxious or depressed Triage Information Reviewed: Yes Vital Signs On Initial Exam: Initial Vitals Temp Pulse Resp BP Pulse Ox 97.7 F 77 20 162/99 97 06/07/19 04:50 06/07/19 04:50 06/07/19 04:50 06/07/19 04:50 06/07/19 04:50 Vital Signs Reviewed: Yes Procedures - Sedation Patient Received Moderate/Deep Sedation with Procedure: No Diagnostics - Vital Signs Vital Signs Temp Pulse Resp BP Pulse Ox 06/07/19 04:50 97.7 F 77 20 162/99 97 - Laboratory Lab Statement: Any lab studies that have been ordered have been reviewed, and results considered in the medical decision making process. Re-Evaluation - Re-Evaluation First Eval Re-Evaluation Time: 05:42 Change: Unchanged Comment: A catheter was unable to placed due to the blockage that is ocurring. Urology will be consulted. GIGU Course/Dx - Course Course Of Treatment: This pt is a 73 Y/O M presenting to [facility] with a CC of inability to urinate due to his medications. He states that he usually self- catheters at home but was unable to today. He states that the last time he urinated was yesterday. He states that he was unsuccessful in using a self- catheter kit due to a blockage that he was unable to get around. His PE has no abnormal findings. A catheter was unable to be placed due to the blockage that is currently ocurring. Dr. Howard was called at 0543. Dr. Rosen, urology, was consulted at 0545 and informed of the different preocedures used to try and fit the catheter into the patient. He recommended a [address] Rosen called back at 0556 and stated that a dialating catheter as a straight catheter could be useful and recommended one of those. A [address] catheter was fortunately able to be placed by the RN and was able to collect the urine at 0600 before the dilating catheter could be used. He is diagnosed with urinary retention and will be sent home with a catheter. - Diagnoses Provider Diagnoses: Urinary retention Discharge ED - Sign-Out/Discharge Documenting (check all that apply): Patient Departure - discharge - Discharge Plan Condition: Good Disposition: HOME Patient Education Materials: Day Catheter Placement and Care (ED) Additional Instructions: Contact your urologist's office this morning to let them know you had to have a catheter placed, they will likely want to see you in the office next week to discuss options going forward. I would like you to stop the duoneb treatments and use ONLY the albuterol going forward. - Billing Disposition and Condition Condition: GOOD Disposition: Home - Attestation Statements Document Initiated by Stephen: Yes Documenting Scribe: Jair Moses Provider For Whom Stephen is Documenting (Include Credential): Eddie Perez MD Scribe Attestation: I, Jair Moses, scribed for Eddie Perez MD on 06/07/19 at 1909. Scribe Documentation Reviewed: Yes Provider Attestation: The documentation as recorded by the Jair rosario accurately reflects the service I personally performed and the decisions made by me, Eddie Perez MD Status of Scribe Document: Viewed Consult Consult: Dr. Rosen, urology, was consulted at 0545 and informed of the different preocedures used to try and fit the catheter into the patient. He recommended a [address] Rosen called back at 0556 and stated that a dilating catheter as a straight catheter and could be useful and recommended one of those.
[2019-06-07 08:47] VITALS: BP 129/71
== END 2019-06-07 08:30 | disposition home or self-care (01) ==
LOC: ED 04:49
DX: R10.9 Unspecified abdominal pain (principal); R33.9 Retention of urine, unspecified; F17.210 Nicotine dependence, cigarettes, uncomplicated; Z88.0 Allergy status to penicillin; Z79.899 Other long term (current) drug therapy; E03.9 Hypothyroidism, unspecified; J44.9 Chronic obstructive pulmonary disease, unspecified
CPT/HCPCS: 99282

== ENCOUNTER 2019-07-01 18:29 | Emergency (ER) | payer OTHER ==
[2019-07-01 21:31] LABS: ABS Basophils 0.1 10^3/ul (0-0.2); ABS Eosinophils 0.7 10^3/ul (0-0.6); ABS Lymphocytes 1.1 10^3/ul (1.0-4.8); ABS Neutrophils 5.5 10^3/ul (1.5-7.7); Eosinophil % 8.4 %; Hematocrit 42 % (42-52); Hemoglobin 13.7 g/dL (14.0-18.0); Mean Corpuscular HGB Conc 33 g/dL (31-36); Mean Corpuscular Hemoglobin 30 pg (27-31); Mean Corpuscular Volume 90 fL (80-94); Mean Platelet Volume 9.1 fL (7.4-10.4); Platelet Count 247 10^3/uL (150-450); Red Blood Count 4.61 10^6 /uL (4.18-5.48); Red Cell Distribution Width 15 % (10-15); White Blood Count 8.4 10^3/uL (3.5-10.8)
[2019-07-01 21:42] LABS: INR 1.04 (0.82-1.09)
[2019-07-01 21:48] LABS: Albumin/Globulin Ratio 1.4 (1-3); BUN/Creatinine Ratio 27.9 (8-20); Calcium 9.3 mg/dL (8.6-10.3); EGFR African American 137.9 (>60); Globulin 2.8 g/dL (2-4); Potassium 3.9 mmol/L (3.5-5.0); Total Bilirubin 0.3 mg/dL (0.2-1.0); Total Protein 6.8 g/dL (6.4-8.9)
[2019-07-01] MEDS ORDERED: Albuterol 2.5 MG/3 ML NEB.SOL* (0.083%) INH ONE (21:53)
--- NOTE | 2019-07-01 21:54 | ED ---
Respiratory - HPI Summary HPI Summary: This patient is a 73 year old M presenting to [facility] with a chief complaint of difficulty breathing since 0200 this morning. Pt states he used his inhaler. The patient rates the pain 4/10 in severity. Symptoms aggravated by nothing. Symptoms alleviated by nothing. Patient reports clear phlegm when coughing. Patient denies CP, fever. Pt denies having diabetes, hypertension, HLD, or heart disease. Pt smokes, but does not drink alcohol or use recreational drugs. - History of Current Complaint Chief Complaint: EDAllergicReaction Stated Complaint: POSS ALLERGIC REACTION PER PT Time Seen by Provider: 07/01/19 21:42 Hx Obtained From: Patient Onset/Duration: Sudden Onset, Still Present Initial Severity: Moderate Current Severity: Moderate Pain Intensity: 4 Character: Cough (Productive) - clear phlegm Sputum Color: Clear Aggravating Factor(s): Nothing Alleviating Factor(s): Nothing - Allergy/Home Medications Allergies/Adverse Reactions: Allergies Allergy/AdvReac Type Severity Reaction Status Date / Time oxycodone Allergy Unknown Verified 07/01/19 18:43 Reaction Details Penicillins Allergy Thrush Verified 07/01/19 18:43 prednisone Allergy Unknown Verified 07/01/19 18:43 Reaction Details shellfish derived Allergy Joint Pain Verified 07/01/19 18:44 PMH/Surg Hx/FS Hx/Imm Hx Previously Healthy: No Endocrine/Hematology History: Reports: Hx Thyroid Disease Respiratory History: Reports: Hx Asthma, Hx Chronic Obstructive Pulmonary Disease (COPD), Hx Lung Cancer - Jul 2017, s/p radiation at [facility] , Hx Pneumonia, Other Respiratory Problems/Disorders - PNX History: Denies: Hx Dialysis Sensory History: Reports: Hx Contacts or Glasses, Hx Hearing Aid - left at home Denies: Hx Legally Blind Opthamlomology History: Reports: Hx Contacts or Glasses Denies: Hx Legally Blind Neurological History: Reports: Other Neuro Impairments/Disorders - neuropathy Denies: Hx Developmental Delay Psychiatric History: Denies: Hx Autism - Cancer History Cancer Type, Location and Year: Lung CA diagnosed in July 2017 at the [facility]. Hx Radiation Therapy: Yes Hx Palliative Cancer Treatment: No - Surgical History Surgical History: Yes Surgery Procedure, Year, and Place: thyroidectomy. appendectomy Infectious Disease History: No Infectious Disease History: Denies: Traveled Outside the US in Last 30 Days - Family History Known Family History: Positive: Other - Colon CA-mother Negative: Cardiac Disease, Blood Disorder - Social History Alcohol Use: None Hx Substance Use: No Substance Use Type: Reports: None Hx Tobacco Use: Yes Smoking Status (MU): Light Every Day Tobacco Smoker Type: Cigarettes Review of Systems Negative: Fever Negative: Chest Pain Respiratory: Other - positive - difficulty breathing Positive: Cough - clear phlegm when coughing. All Other Systems Reviewed And Are Negative: Yes Physical Exam - Summary Physical Exam Summary: General: Well-developed, Well-nourished elderly MALE. No acute distress. HEENT: Normocephalic, Atraumatic. Eyes: Conjuctiva normal, PERRL. Ears: TMs within normal limits. Nares: (-) discharge, (-) erythema. Oropharynx: Clear, mucous membranes moist, (-) exudates. Neck: Soft, FROM, (-) lymphadenopathy, (-) thyromegaly, (-) JVD. Cardiovascular: Normal sinus rhythm, (-) murmur. Lungs: Clear to auscultation bilaterally. Mild respiratory discomfort. Fair air exchange (+) mild wheezes, (-) rales, (-) rhonchi. Abdomen: Soft, non-tender, non-distended, (-) organomegaly, normal bowel sounds. Back: (-) CVA tenderness Extremities: No edema. Skin: Warm, dry, (-) rash. Neuro: Alert and oriented x3, no focal deficits. Psychiatric: Mood normal, affect normal. Triage Information Reviewed: Yes Vital Signs On Initial Exam: Initial Vitals Temp Pulse Resp BP Pulse Ox 98.4 F 79 20 156/88 94 07/01/19 18:38 07/01/19 18:38 07/01/19 18:38 07/01/19 18:38 07/01/19 18:38 Vital Signs Reviewed: Yes Procedures - Sedation Patient Received Moderate/Deep Sedation with Procedure: No Diagnostics - Vital Signs Vital Signs Temp Pulse Resp BP Pulse Ox 07/01/19 18:38 98.4 F 79 20 156/88 94 - Laboratory Lab Results: Lab Results 07/01/19 07/01/19 07/01/19 Range/Units 21:12 21:13 21:13 WBC 8.4 (3.5-10.8) 10^3/uL RBC 4.61 (4.18-5.48) 10^6 /uL Hgb 13.7 L (14.0-18.0) g/dL Hct 42 (42-52) % MCV 90 (80-94) fL MCH 30 (27-31) pg MCHC 33 (31-36) g/dL RDW 15 (10-15) % Plt Count 247 (150-450) 10^3/uL MPV 9.1 (7.4-10.4) fL Neut % (Auto) 65.2 % Lymph % (Auto) 13.0 % Bradley % (Auto) 11.9 % Eos % (Auto) 8.4 % Baso % (Auto) 1.5 % Absolute Neuts (auto) 5.5 (1.5-7.7) 10^3/ul Absolute Lymphs (auto) 1.1 (1.0-4.8) 10^3/ul Absolute Monos (auto) 1.0 H (0-0.8) 10^3/ul Absolute Eos (auto) 0.7 H (0-0.6) 10^3/ul Absolute Basos (auto) 0.1 (0-0.2) 10^3/ul Absolute Nucleated RBC 0.0 10^3/ul Nucleated RBC % 0.0 INR (Anticoag Therapy) (0.82-1.09) Sodium 141 (135-145) mmol/L Potassium 3.9 (3.5-5.0) mmol/L Chloride 107 (101-111) mmol/L Carbon Dioxide 29 (22-32) mmol/L Anion Gap 5 (2-11) mmol/L BUN 19 (6-24) mg/dL Creatinine 0.68 (0.67-1.17) mg/dL Est GFR ( Amer) 137.9 (>60) Est GFR (Non-Af Amer) 114.0 (>60) BUN/Creatinine Ratio 27.9 H (8-20) Glucose 117 H (70-100) mg/dL Lactic Acid 1.1 (0.5-2.0) mmol/L Calcium 9.3 (8.6-10.3) mg/dL Total Bilirubin 0.30 (0.2-1.0) mg/dL AST 13 (13-39) U/L ALT 8 (7-52) U/L Alkaline Phosphatase 61 (34-104) U/L Troponin I 0.00 (<0.04) ng/mL Total Protein 6.8 (6.4-8.9) g/dL Albumin 4.0 (3.2-5.2) g/dL Globulin 2.8 (2-4) g/dL Albumin/Globulin Ratio 1.4 (1-3) 07/01/19 Range/Units 21:13 WBC (3.5-10.8) 10^3/uL RBC (4.18-5.48) 10^6 /uL Hgb (14.0-18.0) g/dL Hct (42-52) % MCV (80-94) fL MCH (27-31) pg MCHC (31-36) g/dL RDW (10-15) % Plt Count (150-450) 10^3/uL MPV (7.4-10.4) fL Neut % (Auto) % Lymph % (Auto) % Bradley % (Auto) % Eos % (Auto) % Baso % (Auto) % Absolute Neuts (auto) (1.5-7.7) 10^3/ul Absolute Lymphs (auto) (1.0-4.8) 10^3/ul Absolute Monos (auto) (0-0.8) 10^3/ul Absolute Eos (auto) (0-0.6) 10^3/ul Absolute Basos (auto) (0-0.2) 10^3/ul Absolute Nucleated RBC 10^3/ul Nucleated RBC % INR (Anticoag Therapy) 1.04 (0.82-1.09) Sodium (135-145) mmol/L Potassium (3.5-5.0) mmol/L Chloride (101-111) mmol/L Carbon Dioxide (22-32) mmol/L Anion Gap (2-11) mmol/L BUN (6-24) mg/dL Creatinine (0.67-1.17) mg/dL Est GFR ( Amer) (>60) Est GFR (Non-Af Amer) (>60) BUN/Creatinine Ratio (8-20) Glucose (70-100) mg/dL Lactic Acid (0.5-2.0) mmol/L Calcium (8.6-10.3) mg/dL Total Bilirubin (0.2-1.0) mg/dL AST (13-39) U/L ALT (7-52) U/L Alkaline Phosphatase (34-104) U/L Troponin I (<0.04) ng/mL Total Protein (6.4-8.9) g/dL Albumin (3.2-5.2) g/dL Globulin (2-4) g/dL Albumin/Globulin Ratio (1-3) Result Diagrams: 07/01/19 21:13 07/01/19 21:13 Lab Statement: Any lab studies that have been ordered have been reviewed, and results considered in the medical decision making process. - Radiology CXR Radiology Interpretation Completed By: ED Physician Summary of Radiographic Findings: Impression: No acute changes, no pneumonia, no pleural effusion Re-Evaluation - Re-Evaluation First Eval Re-Evaluation Time: 21:56 Comment: Pt will get albuterol breathing treatment. Second Eval Re-Evaluation Time: 00:03 Comment: Pt will receive another albuterol treatment. Pt will later be discharged. Disposition - Course Course Of Treatment: 73-year-old male with shortness of breath. Patient states he's been told not to use his nebulizer solution anymore because of prostate problems. He does have an albuterol inhaler which she states was not helping today. Patient's symptoms improved significantly with albuterol nebulizer treatments 2. Also received steroids. No signs of pneumonia on chest x-ray. Patient will be treated for COPD exacerbation with steroids, albuterol treatments, antibiotics. Follow-up with PCP. Follow-up sooner for any worsening symptoms. - Diagnoses Provider Diagnoses: COPD exacerbation Discharge ED - Sign-Out/Discharge Documenting (check all that apply): Patient Departure - discharge - Discharge Plan Condition: Stable Disposition: HOME Prescriptions: Azithromycin TAB* [Zithromax TAB (Z-ANOOP) 250 mg #6 tabs] 250 mg PO DAILY #4 tab predniSONE [Prednisone 20 MG TAB] 40 mg PO DAILY 5 Days #10 tablet Patient Education Materials: COPD (Chronic Obstructive Pulmonary Disease) (ED) Referrals: Marlyn Arnett [Primary Care Provider] - 3 Days Additional Instructions: Follow up with your primary care provider within 3 days. Return to the ED for any new or worsening symptoms. - Billing Disposition and Condition Condition: STABLE Disposition: Home - Attestation Statements Document Initiated by Westleye: Yes Documenting Scribe: Ang Freeman Provider For Whom Scribe is Documenting (Include Credential): Dr. Ирина Faustin MD Scribe Attestation: I, Ang Freeman, scribed for Dr. Ирина Faustin MD on 07/02/19 at 0122. Scribe Documentation Reviewed: Yes Provider Attestation: The documentation as recorded by the Ang rosario accurately reflects the service I personally performed and the decisions made by me, Dr. Ирина Faustin MD Status of Scribe Document: Viewed
[2019-07-01] MEDS ORDERED: methylPREDNISolone 125 MG* 2 ML VIAL IV ONE (22:56)
[2019-07-02] MEDS ORDERED: Albuterol 2.5 MG/3 ML NEB.SOL* (0.083%) INH ONE (00:04)
[2019-07-02] MEDS ORDERED: Azithromycin TAB* 250 MG PO ONE (00:06)
[2019-07-02 00:42] VITALS: BP 148/86
== END 2019-07-02 00:41 | disposition home or self-care (01) ==
LOC: ED 18:29
DX: J44.1 Chronic obstructive pulmonary disease with (acute) exacerbation (principal); Z85.118 Personal history of other malignant neoplasm of bronchus and lung; Z88.8 Allergy status to other drugs, medicaments and biological substances; Z88.5 Allergy status to narcotic agent; Z88.0 Allergy status to penicillin; Z91.013 Allergy to seafood; F17.210 Nicotine dependence, cigarettes, uncomplicated
CPT/HCPCS: 36415; 71045; 80053; 83605; 83880; 84484; 85025; 85610; 87040; 93005; 96374; 99282; A9270-GY; J2930

== ENCOUNTER 2019-07-14 23:14 | Emergency (ER) | payer OTHER ==
--- NOTE | 2019-07-14 23:44 | ED ---
GI/ HPI - HPI Summary HPI Summary: This pt is a 73 y/o male [facility] [place]io [place] with blood clots and penile pain. Pt reports he was seen in the ED at [facility] on 06/07/19 and had a catheter placed and was referred to [place]. Pt had an appointment at [facility] on 07/09/19 and they took that catheter out and placed a new catheter. Pt notes yesterday he began to have pain in his penis, which he describes as burning, and also noticed his catheter was leaking. Pt went to the [facility] yesterday but was told they couldn't change his catheter. Upon returning home yesterday he noticed his antonio bag was filled with blood clots. Pt notes he felt well today as he had already passed the blood clots but then at 1500 he began to experience burning again. Around 2100 today pt was getting ready for bed and when he went to the bathroom his catheter was leaking again. Pt believes his catheter is blocked again. - History of Current Complaint Chief Complaint: EDUrogenitalProblems Time Seen by Provider: 07/14/19 23:40 Stated Complaint: CATH ISSUE PER PT Hx Obtained From: Patient Onset/Duration: Still Present Timing: Lasting Hours Current Severity: Severe Pain Intensity: 9 Additional Locations for Males: Penis Associated Signs and Symptoms: Positive: Other: - POSITIVE: catheter bag with blood clots. Negative: Nausea, Vomiting, Fever, Chills Aggravating Factor(s): Nothing Alleviating Factor(s): Nothing - Additional Pertinent History Primary Care Physician: MECCA - Allergy/Home Medications Allergies/Adverse Reactions: Allergies Allergy/AdvReac Type Severity Reaction Status Date / Time oxycodone Allergy Unknown Verified 07/14/19 23:19 Reaction Details Penicillins Allergy Thrush Verified 07/14/19 23:19 prednisone Allergy Unknown Verified 07/14/19 23:19 Reaction Details shellfish derived Allergy Joint Pain Verified 07/14/19 23:19 PMH/Surg Hx/FS Hx/Imm Hx Endocrine/Hematology History: Reports: Hx Thyroid Disease Respiratory History: Reports: Hx Asthma, Hx Chronic Obstructive Pulmonary Disease (COPD), Hx Lung Cancer - Jul 2017, s/p radiation at [facility] , Hx Pneumonia, Other Respiratory Problems/Disorders - PNX History: Denies: Hx Dialysis Sensory History: Reports: Hx Contacts or Glasses, Hx Hearing Aid - left at home Denies: Hx Legally Blind Opthamlomology History: Reports: Hx Contacts or Glasses Denies: Hx Legally Blind Neurological History: Reports: Other Neuro Impairments/Disorders - neuropathy Denies: Hx Developmental Delay Psychiatric History: Denies: Hx Autism - Cancer History Cancer Type, Location and Year: Lung CA diagnosed in July 2017 at the [facility]. Hx Radiation Therapy: Yes Hx Palliative Cancer Treatment: No - Surgical History Surgery Procedure, Year, and Place: thyroidectomy. appendectomy Infectious Disease History: No Infectious Disease History: Denies: Traveled Outside the [place] in Last 30 Days - Family History Known Family History: Positive: Other - Colon CA-mother Negative: Cardiac Disease, Blood Disorder - Social History Alcohol Use: None Hx Substance Use: No Substance Use Type: Reports: None Hx Tobacco Use: Yes Smoking Status (MU): Light Every Day Tobacco Smoker Type: Cigarettes Review of Systems Negative: Fever ENT: Negative Cardiovascular: Negative Negative: Vomiting, Nausea Genitourinary: Other - POSITIVE: blood clots in catheter bag Positive: burning All Other Systems Reviewed And Are Negative: Yes Physical Exam - Summary Physical Exam Summary: Appearance: Well-appearing, Well-nourished, lying in bed comfortable Skin: Warm, dry, no obvious rash Eyes: sclera anicteric, no conjunctival pallor ENT: mucous membranes moist Neck: deferred Respiratory: No signs of respiratory distress Cardiovascular: Appears well perfused, pulses are nml Abdomen: deferred Musculoskeletal: Moving all 4 extremities without obvious discomfort Neurological: Awake and alert, mentation is normal, speech is fluent and appropriate Psychiatric: affect is normal, does not appear anxious or depressed Triage Information Reviewed: Yes Vital Signs On Initial Exam: Initial Vitals Temp Pulse Resp BP Pulse Ox 98.4 F 103 19 147/88 95 07/14/19 23:16 07/14/19 23:16 07/14/19 23:16 07/14/19 23:16 07/14/19 23:16 Vital Signs Reviewed: Yes Procedures - Sedation Patient Received Moderate/Deep Sedation with Procedure: No Diagnostics - Vital Signs Vital Signs Temp Pulse Resp BP Pulse Ox 07/14/19 23:16 98.4 F 103 19 147/88 95 - Laboratory Lab Statement: Any lab studies that have been ordered have been reviewed, and results considered in the medical decision making process. GIGU Course/Dx - Course Assessment/Plan: Pt is a 73 y/o male presenting to [facility] c/o antonio bag with blood clots and penile pain since yesterday. Pt states he had a new catheter placed at the [facility] in [place] on 07/09/19. Bladder scan showed only 45 CC after catheter placement. He does not appear to be in retention. There were no clots expressed either. Pt will be discharged home with follow up from his PCP. He was given prescriptions for Keflex and Pyridium. Pt was given instructions to return to the ED for any worsening or new symptoms. - Diagnoses Provider Diagnoses: UTI (urinary tract infection) Discharge ED - Sign-Out/Discharge Documenting (check all that apply): Patient Departure - Discharge home - Discharge Plan Condition: Good Disposition: HOME Prescriptions: Cephalexin CAP* [Keflex CAP*] 500 mg PO QID #40 cap Phenazopyridine 200 mg (NF) [Pyridium 200 MG tab *] 200 mg PO TID PRN #15 tab PRN Reason: Pain - Moderate Patient Education Materials: Urinary Tract Infection in Men (ED), Antonio Catheter Placement and Care (ED) Referrals: Marlyn Arnett [Primary Care Provider] - - Billing Disposition and Condition Condition: GOOD Disposition: Home - Attestation Statements Document Initiated by Stephen: Yes Documenting Scribe: Anabella Lake Provider For Whom Stephen is Documenting (Include Credential): Eddie Perez MD Scribe Attestation: Anabella Blanco, scribed for Eddie Perez MD on 07/15/19 at 1821. Scribe Documentation Reviewed: Yes Provider Attestation: The documentation as recorded by the Anabella rosario accurately reflects the service I personally performed and the decisions made by me, Eddie Perez MD Status of Scribe Document: Viewed
[2019-07-15] MEDS ORDERED: Phenazopyridine TAB* 100 MG PO ONE (00:34)
[2019-07-15] MEDS ORDERED: Ibuprofen TAB* 400 MG PO ONE (00:34)
[2019-07-15 00:58] LABS: Urine Appearance Turbid; Urine Bacteria 2+ (Absent); Urine Bilirubin Negative (Negative); Urine Blood 3+ (Negative); Urine Color Yellow; Urine Glucose Negative (Negative); Urine Ketones Negative (Negative); Urine Nitrite Negative (Negative); Urine Protein 2+(100 mg/dL) (Negative); Urine Red Blood Cell 3+(>10/hpf) (Absent); Urine Specific Gravity 1.023 (1.010-1.030); Urine Urobilinogen Negative (Negative); Urine White Blood Cell 3+(>20/hpf) (Absent)
[2019-07-15 01:00] VITALS: BP 151/95
--- NOTE | 2019-07-17 05:39 | ED ---
Imaging and Labs Follow Up Follow Up Type: Labs/Cultures Labs/Culture Result: Urine culture final grew Janett albicans Patient Communication/Plan: This was from indwelling catheter Patient Communication/Plan: Patient was asymptomatic, treated with Keflex Asymptomatic candiduria therapy is typically not indicated No further treatment Provider Diagnoses: UTI (urinary tract infection)
== END 2019-07-15 01:05 | disposition home or self-care (01) ==
LOC: ED 23:14
DX: T83.511A Infection and inflammatory reaction due to indwelling urethral catheter, initial encounter (principal); F17.210 Nicotine dependence, cigarettes, uncomplicated; Z88.0 Allergy status to penicillin; E03.9 Hypothyroidism, unspecified; J44.9 Chronic obstructive pulmonary disease, unspecified; Z85.118 Personal history of other malignant neoplasm of bronchus and lung; Z96.0 Presence of urogenital implants
CPT/HCPCS: 81003; 81015; 87086; 87106; 99283; A9270-GY

== ENCOUNTER 2019-07-20 00:13 | Emergency (ER) | payer OTHER ==
[2019-07-20] MEDS ORDERED: methylPREDNISolone 125 MG* 2 ML VIAL IV ONE (01:17)
[2019-07-20] MEDS ORDERED: Albuterol 0.5% CONC NEB.SOL* 5 MG/ML 20 ml BOT INH ONE (01:17)
--- NOTE | 2019-07-20 01:20 | ED ---
Shortness of Breath - HPI Summary HPI Summary: This pt is a 73 Y/O M presenting to [facility] with a CC of SOB that started at 1999 today while he was out at dinner. He states that he has an extensive respiratory Hx including collapsed lungs 6 years ago and COPD. He states that his symptoms are aggravated while he walks around. He states that he has prescribed inhalers but they were ineffective in helping his symptoms. He has no aggravating or alleviating symptoms. He states that he has an unproductive cough and has wheezes. He denies any CP, headaches, fevers, chill, N/V and abdominal pains. He has a SHx of smoking cigarettes. - History of Current Complaint Chief Complaint: EDRespiratoryDistress Time Seen by Provider: 07/20/19 01:13 Hx Obtained From: Patient Onset/Duration: Sudden Onset, Lasting Hours - 5, Still Present Timing: Constant Current Severity: Moderate Dyspnea At: Exertion Aggravating Factors: Nothing Alleviating Factors: Nothing Associated Signs & Symptoms: Negative - CP, headaches, fevers, chill, N/V and abdominal pains, Cough (Nonproductive), Wheezing - Allergy/Home Medications Allergies/Adverse Reactions: Allergies Allergy/AdvReac Type Severity Reaction Status Date / Time oxycodone Allergy Unknown Verified 07/14/19 23:19 Reaction Details Penicillins Allergy Thrush Verified 07/14/19 23:19 prednisone Allergy Unknown Verified 07/14/19 23:19 Reaction Details shellfish derived Allergy Joint Pain Verified 07/14/19 23:19 PMH/Surg Hx/FS Hx/Imm Hx Previously Healthy: Yes Endocrine/Hematology History: Reports: Hx Thyroid Disease Respiratory History: Reports: Hx Asthma, Hx Chronic Obstructive Pulmonary Disease (COPD), Hx Lung Cancer - Jul 2017, s/p radiation at [facility] , Hx Pneumonia, Other Respiratory Problems/Disorders - PNX History: Denies: Hx Dialysis Sensory History: Reports: Hx Contacts or Glasses, Hx Hearing Aid - left at home Denies: Hx Legally Blind Opthamlomology History: Reports: Hx Contacts or Glasses Denies: Hx Legally Blind Neurological History: Reports: Other Neuro Impairments/Disorders - neuropathy Denies: Hx Developmental Delay Psychiatric History: Denies: Hx Autism - Cancer History Cancer Type, Location and Year: Lung CA diagnosed in July 2017 at the [facility]. Hx Radiation Therapy: Yes Hx Palliative Cancer Treatment: No - Surgical History Surgical History: Yes Surgery Procedure, Year, and Place: thyroidectomy. appendectomy - Immunization History Immunizations Up to Date: Yes Infectious Disease History: No Infectious Disease History: Denies: Traveled Outside the [place] in Last 30 Days - Family History Known Family History: Positive: Other - Colon CA-mother Negative: Cardiac Disease, Blood Disorder - Social History Occupation: Retired Lives: Alone Alcohol Use: None Hx Substance Use: No Substance Use Type: Reports: None Hx Tobacco Use: Yes Smoking Status (MU): Heavy Every Day Tobacco Smoker Type: Cigarettes Review of Systems Negative: Fever, Chills Negative: Chest Pain Positive: Shortness Of Breath, Cough, Other - POSITIVE: wheezes Negative: Abdominal Pain, Vomiting, Nausea Negative: Headache All Other Systems Reviewed And Are Negative: Yes Physical Exam - Summary Physical Exam Summary: Appearance: Well-appearing, Well-nourished, lying in bed comfortably Skin: Warm, dry, no obvious rash Eyes: sclera anicteric, no conjunctival pallor ENT: mucous membranes moist, pharynx appears normal Neck: Supple, nontender Respiratory: Mild tachypnea, slightly labored breathing, Expiratory wheezes with a long expiratory phase Cardiovascular: Normal S1, S2. No murmurs. Normal distal pulses in tibial and radial bilaterally. Abdomen: Soft, nontender, normal active bowel sounds present Musculoskeletal: Normal, Strength/ROM Intact Neurological: A&Ox3, awake and alert, mentation is normal, speech is fluent and appropriate Psychiatric: affect is normal, does not appear anxious or depressed Triage Information Reviewed: Yes Vital Signs On Initial Exam: Initial Vitals Temp Pulse Resp BP Pulse Ox 98.6 F 89 24 112/79 93 07/20/19 00:20 07/20/19 00:20 07/20/19 00:20 07/20/19 00:20 07/20/19 00:20 Vital Signs Reviewed: Yes Procedures - Sedation Patient Received Moderate/Deep Sedation with Procedure: No Diagnostics - Vital Signs Vital Signs Temp Pulse Resp BP Pulse Ox 07/20/19 00:20 98.6 F 89 24 112/79 93 - Laboratory Result Diagrams: 07/20/19 01:23 07/20/19 01:23 Lab Statement: Any lab studies that have been ordered have been reviewed, and results considered in the medical decision making process. - Radiology CXR Radiology Interpretation Completed By: ED Physician Summary of Radiographic Findings: No acute processes, pending offical review. - EKG 46 Cardiac Rate: NL - 89 BPM EKG Rhythm: Sinus Rhythm ST Segment: Normal Ectopy: None Summary of EKG Findings: NSR at 89 BPM, P waves, QRS complex, and T waves are within normal limits, T waves and intervals are normal, no ischemic changes. This is a normal EKG. Interpreted by Dr. Perez at 0052 07/20/19. Course/Dx - Course Course Of Treatment: This pt is a 73 Y/O M presenting to [facility] with a CC of SOB that started at 1999 today while he was out at dinner. He states that he has an extensive respiratory Hx including collapsed lungs 6 years ago and COPD. He states that his symptoms are aggravated while he walks around. He states that he has prescribed inhalers but they were ineffective in helping his symptoms. His PE found that he has Mild tachypnea, slightly labored breathing, and Expiratory wheezes with a long expiratory phase. His CXR shows no acute processes. His EKG taken at 004 shows NSR at 89 BPM, P waves, QRS complex, and T waves are within normal limits, T waves and intervals are normal, no ischemic changes. This is a normal EKG. Upon re-eval following albuterol and solu-methol the pt reports feeling better and has clear breath sounds. He will be discharged home with a Dx of COPD exacerbation once he has suitable O2 levels while ambulating. Until then he will be a sign out to Dr. Garza at shift change 0700 07/20/19. - Diagnoses Provider Diagnoses: COPD exacerbation Discharge ED - Sign-Out/Discharge Documenting (check all that apply): Sign-Out Patient Signing out patient TO: Dave Garza - Discharge Plan Condition: Improved Disposition: HOME Prescriptions: Azithromycin TAB* [Zithromax TAB (Z-ANOOP) 250 mg #6 tabs] 2 tab PO .TODAY, THEN 1 DAILY #1 anoop predniSONE TAB* [Deltasone 20 MG TAB*] 40 mg PO DAILY 5 Days #10 tab Patient Education Materials: COPD (Chronic Obstructive Pulmonary Disease) (ED) Referrals: Marlyn Arnett [Primary Care Provider] - 3 Days - Billing Disposition and Condition Condition: IMPROVED Disposition: Home - Attestation Statements Document Initiated by Tgibcristela: Yes Documenting Scribe: Jair Tyler Provider For Whom Stephen is Documenting (Include Credential): Eddie Perez MD Scribe Attestation: I, Jair Tyler, scribed for Eddie Perez MD on 07/20/19 at 1940. Scribe Documentation Reviewed: Yes Provider Attestation: The documentation as recorded by the sagareJair accurately reflects the service I personally performed and the decisions made by me, Eddie Perez MD Status of Scribe Document: Viewed
[2019-07-20 01:32] LABS: Hematocrit 42 % (42-52); Hemoglobin 13.7 g/dL (14.0-18.0); Mean Corpuscular HGB Conc 33 g/dL (31-36); Mean Corpuscular Hemoglobin 30 pg (27-31); Mean Corpuscular Volume 91 fL (80-94); Mean Platelet Volume 9.3 fL (7.4-10.4); Platelet Count 211 10^3/uL (150-450); Red Cell Distribution Width 14 % (10-15); White Blood Count 11.7 10^3/uL (3.5-10.8)
[2019-07-20 01:50] LABS: Albumin 3.9 g/dL (3.2-5.2); Albumin/Globulin Ratio 1.5 (1-3); BUN/Creatinine Ratio 25.7 (8-20); Calcium 9.5 mg/dL (8.6-10.3); EGFR African American 125.1 (>60); EGFR Non-African American 103.4 (>60); Globulin 2.6 g/dL (2-4); Potassium 3.5 mmol/L (3.5-5.0); Total Bilirubin 0.2 mg/dL (0.2-1.0); Total Protein 6.5 g/dL (6.4-8.9)
[2019-07-20 03:46] LABS: ABS Basophils 0.2 10^3/ul (0-0.2); ABS Eosinophils 0.9 10^3/ul (0-0.6); ABS Lymphocytes 0.9 10^3/ul (1.0-4.8); ABS Monocytes 1.3 10^3/ul (0-0.8); ABS Neutrophils 8.4 10^3/ul (1.5-7.7); Eosinophil % 7.8 %; Lymphocyte % 7.8 %
[2019-07-20 07:56] VITALS: BP 137/77
== END 2019-07-20 08:00 | disposition home or self-care (01) ==
LOC: ED 00:13
DX: J44.1 Chronic obstructive pulmonary disease with (acute) exacerbation (principal); Z85.118 Personal history of other malignant neoplasm of bronchus and lung; Z88.8 Allergy status to other drugs, medicaments and biological substances; Z88.5 Allergy status to narcotic agent; Z88.0 Allergy status to penicillin; Z91.013 Allergy to seafood; F17.210 Nicotine dependence, cigarettes, uncomplicated
CPT/HCPCS: 36415; 71046; 80053; 83605; 84484; 85025; 85060; 87040; 93005; 96374; 99283; J2930; J7611

== ENCOUNTER 2019-08-24 02:25 | Emergency (ER) | payer OTHER ==
[2019-08-24] MEDS ORDERED: Albuterol 2.5 MG/3 ML NEB.SOL* (0.083%) INH ONE (02:34)
[2019-08-24 03:02] LABS: Hematocrit 42 % (42-52); Hemoglobin 14.5 g/dL (14.0-18.0); Mean Corpuscular HGB Conc 35 g/dL (31-36); Mean Corpuscular Hemoglobin 31 pg (27-31); Mean Corpuscular Volume 90 fL (80-94); Mean Platelet Volume 8.5 fL (7.4-10.4); Platelet Count 218 10^3/uL (150-450); Red Blood Count 4.64 10^6 /uL (4.18-5.48); Red Cell Distribution Width 14 % (10-15)
[2019-08-24 03:06] LABS: ABS Basophils 0.1 10^3/ul (0-0.2); ABS Eosinophils 0.5 10^3/ul (0-0.6); ABS Lymphocytes 0.8 10^3/ul (1.0-4.8); ABS Monocytes 1.7 10^3/ul (0-0.8); ABS Neutrophils 8.9 10^3/ul (1.5-7.7); Eosinophil % 4.4 %; Lymphocyte % 6.5 %
[2019-08-24 03:08] LABS: INR 1.06 (0.82-1.09)
[2019-08-24 03:19] LABS: Albumin 4.1 g/dL (3.2-5.2); Albumin/Globulin Ratio 1.5 (1-3); BUN/Creatinine Ratio 26.9 (8-20); EGFR African American 140.3 (>60); Globulin 2.7 g/dL (2-4); Potassium 3.8 mmol/L (3.5-5.0); Total Bilirubin 0.2 mg/dL (0.2-1.0); Total Protein 6.8 g/dL (6.4-8.9)
[2019-08-24] MEDS ORDERED: Albuterol/Ipratropium NEB.SOL* Albuterol 2.5 MG/Ipratropium 0.5 MG 3 ML INH ONE (03:35)
[2019-08-24] MEDS ORDERED: methylPREDNISolone 125 MG* 2 ML VIAL IV ONE (03:35)
--- NOTE | 2019-08-24 03:35 | ED ---
Shortness of Breath - HPI Summary HPI Summary: 73 year old male presents to the ED with a chief complaint of shortness of breath starting 0700 yesterday. Patient has had a cough for several days. Today he felt congested. Nebulizer O2 at home did not alleviate his shortness of breath. He denies fever. Patient has a history of COPD and lung cancer. - History of Current Complaint Chief Complaint: EDShortnessOfBreath Time Seen by Provider: 08/24/19 02:33 Hx Obtained From: Patient Onset/Duration: Sudden Onset, Lasting Hours, Worse Since - 0700 yesterday Current Severity: Mild Dyspnea At: Rest Associated Signs & Symptoms: Cough (Productive) - Allergy/Home Medications Allergies/Adverse Reactions: Allergies Allergy/AdvReac Type Severity Reaction Status Date / Time oxycodone Allergy Unknown Verified 08/24/19 02:28 Reaction Details Penicillins Allergy Thrush Verified 08/24/19 02:28 prednisone Allergy Unknown Verified 08/24/19 02:28 Reaction Details shellfish derived Allergy Joint Pain Verified 08/24/19 02:28 PMH/Surg Hx/FS Hx/Imm Hx Endocrine/Hematology History: Reports: Hx Thyroid Disease Respiratory History: Reports: Hx Asthma, Hx Chronic Obstructive Pulmonary Disease (COPD), Hx Lung Cancer - Jul 2017, s/p radiation at [facility] , Hx Pneumonia, Other Respiratory Problems/Disorders - PNX History: Denies: Hx Dialysis Sensory History: Reports: Hx Contacts or Glasses, Hx Hearing Aid - left at home Denies: Hx Legally Blind Opthamlomology History: Reports: Hx Contacts or Glasses Denies: Hx Legally Blind Neurological History: Reports: Other Neuro Impairments/Disorders - neuropathy Denies: Hx Developmental Delay Psychiatric History: Denies: Hx Autism - Cancer History Cancer Type, Location and Year: Lung CA diagnosed in July 2017 at the [facility]. Hx Radiation Therapy: Yes Hx Palliative Cancer Treatment: No - Surgical History Surgery Procedure, Year, and Place: thyroidectomy. appendectomy Infectious Disease History: No Infectious Disease History: Denies: Traveled Outside the US in Last 30 Days - Family History Known Family History: Positive: Other - Colon CA-mother Negative: Cardiac Disease, Blood Disorder - Social History Alcohol Use: None Hx Substance Use: No Substance Use Type: Reports: None Hx Tobacco Use: Yes Smoking Status (MU): Light Every Day Tobacco Smoker Type: Cigarettes Review of Systems - ROS Summary Review of Systems Summary: Home Medications Medication Instructions Recorded Confirmed Type Albuterol HFA INHALER* [Ventolin 2 puff INH Q4H PRN #1 mdi 04/11/18 07/20/19 Rx HFA Inhaler*] Levothyroxine TAB* [Synthorid 112 112 mcg PO DAILY 04/24/18 07/20/19 History MCG TAB*] Finasteride TAB* [Proscar TAB*] 5 mg PO DAILY 12/26/18 07/20/19 History Hydroxychloroquine TAB* [Plaquenil 200 mg PO BID 12/26/18 07/20/19 History TAB*] Tamsulosin CAP* [Flomax CAP*] 0.4 mg PO DAILY 12/26/18 07/20/19 History Tiotropium Brom/Olodaterol 2 puff INH DAILY 12/26/18 07/20/19 History [Stiolto Respimat Inh [place] (60 puff)] Albuterol/Ipratropium NEB.SETH* 1 neb INH Q4H PRN 06/07/19 07/20/19 History [Duoneb (Albuterol 2.5 MG/Ipratropium 0.5 MG)] Azithromycin TAB* [Zithromax TAB 250 mg PO DAILY #4 tab 07/02/19 07/20/19 Rx (Z-ANOOP) 250 mg #6 tabs] Cephalexin CAP* [Keflex CAP*] 500 mg PO QID #40 cap 07/15/19 07/20/19 Rx Phenazopyridine 200 mg (NF) 200 mg PO TID PRN #15 tab 07/15/19 07/20/19 Rx [Pyridium 200 MG tab *] Azithromycin TAB* [Zithromax TAB 2 tab PO .TODAY, THEN 1 DAILY #1 07/20/19 Rx (Z-ANOOP) 250 mg #6 tabs] anoop predniSONE TAB* [Deltasone 20 MG 40 mg PO DAILY 5 Days #10 tab 07/20/19 Rx TAB*] Negative: Fever Positive: Shortness Of Breath, Cough All Other Systems Reviewed And Are Negative: Yes Physical Exam - Summary Physical Exam Summary: General: Well-developed, Well-nourished elderly male. Mild respiratory distress. HEENT: Normocephalic, Atraumatic. Eyes: Conjuctiva normal, PERRL. Ears: TMs within normal limits. Nares: (-) discharge, (-) erythema. Oropharynx: Clear, mucous membranes moist, (-) exudates. Neck: Soft, FROM, (-) lymphadenopathy, (-) thyromegaly, (-) JVD. Cardiovascular: Normal sinus rhythm, (-) murmur. Lungs: Pursed lip breathing, mild retractions. Decreased breath sounds bilaterally. Tight wheezing throughout. (-) Rales, (-) rhonchi. Abdomen: Soft, non-tender, non-distended, (-) organomegaly, normal bowel sounds. Back: (-) CVA tenderness Extremities: No edema. Skin: Warm, dry, (-) rash. Neuro: Alert and oriented x3, no focal deficits. Psychiatric: Mood normal, affect normal. Triage Information Reviewed: Yes Vital Signs On Initial Exam: Initial Vitals Temp Pulse Resp BP Pulse Ox 98.7 F 96 18 97/78 91 08/24/19 02:26 08/24/19 02:26 08/24/19 02:26 08/24/19 02:26 08/24/19 02:26 Vital Signs Reviewed: Yes Procedures - Sedation Patient Received Moderate/Deep Sedation with Procedure: No Diagnostics - Vital Signs Vital Signs Temp Pulse Resp BP Pulse Ox 08/24/19 02:26 98.7 F 96 18 97/78 91 - Laboratory Lab Results: Lab Results 08/24/19 08/24/19 Range/Units 02:54 02:54 WBC 12.0 H (3.5-10.8) 10^3/uL RBC 4.64 (4.18-5.48) 10^6 /uL Hgb 14.5 (14.0-18.0) g/dL Hct 42 (42-52) % MCV 90 (80-94) fL MCH 31 (27-31) pg MCHC 35 (31-36) g/dL RDW 14 (10-15) % Plt Count 218 (150-450) 10^3/uL MPV 8.5 (7.4-10.4) fL Neut % (Auto) 74.1 % Lymph % (Auto) 6.5 % [place] % (Auto) 14.1 % Eos % (Auto) 4.4 % Baso % (Auto) 0.9 % Absolute Neuts (auto) 8.9 H (1.5-7.7) 10^3/ul Absolute Lymphs (auto) 0.8 L (1.0-4.8) 10^3/ul Absolute Monos (auto) 1.7 H (0-0.8) 10^3/ul Absolute Eos (auto) 0.5 (0-0.6) 10^3/ul Absolute Basos (auto) 0.1 (0-0.2) 10^3/ul Absolute Nucleated RBC 0.0 10^3/ul Nucleated RBC % 0.0 INR (Anticoag Therapy) 1.06 (0.82-1.09) Result Diagrams: 08/24/19 02:54 08/24/19 02:54 Lab Statement: Any lab studies that have been ordered have been reviewed, and results considered in the medical decision making process. - Radiology CXR Radiology Interpretation Completed By: ED Physician Summary of Radiographic Findings: Impression: Right middle lobe pneumonia. An ED physician has reviewed and interpreted this XR. Course/Dx - Course Course Of Treatment: During ED course, patient was given albuterol, prednisone, and ceftriaxone. - Diagnoses Provider Diagnoses: Pneumonia Discharge ED - Sign-Out/Discharge Documenting (check all that apply): Patient Departure - discharge - Discharge Plan Condition: Stable Disposition: HOME Patient Education Materials: Pneumonia (ED) Referrals: Marlyn Arnett [Primary Care Provider] - Additional Instructions: Follow up with your primary care provider in 2-3 days. Return to the Emergency Department if you experience new or worsened symptoms. - Attestation Statements Document Initiated by Stephen: Yes Documenting Scribe: Jose Johnston Provider For Whom Stephen is Documenting (Include Credential): Ирина Faustin MD Scribe Attestation: Jose Blanco, scribed for Ирина Faustin MD on 08/24/19 at 0359. Status of Scribe Document: Ready
[2019-08-24] MEDS ORDERED: cefTRIAXone(*) 2 GM in NS 0.9% 100 ML* 100 ML IVPB ONE (04:24)
[2019-08-24 05:44] VITALS: BP 116/63
== END 2019-08-24 05:43 | disposition home or self-care (01) ==
LOC: ED 02:25
DX: J18.9 Pneumonia, unspecified organism (principal); R06.02 Shortness of breath; E03.9 Hypothyroidism, unspecified; F17.210 Nicotine dependence, cigarettes, uncomplicated; J44.9 Chronic obstructive pulmonary disease, unspecified; Z85.118 Personal history of other malignant neoplasm of bronchus and lung; R05 Cough
CPT/HCPCS: 36415; 71045; 80053; 82803; 83605; 83880; 84484; 85025; 85610; 87040; 93005; 96374; 99284; A9270-GY; J0696; J2930

== ENCOUNTER 2019-09-16 08:06 | Emergency (ER) | payer OTHER ==
--- NOTE | 2019-09-16 08:17 | ED ---
GI/ HPI - HPI Summary HPI Summary: Patient is a 73-year-old male who presents emergency department for urinary retention. Patient has a history of BPH and follows with the urologist at the [facility] in [place]. Patient states he is trying to get scheduled for a procedure for his prostate in [place]. Patient states he had his Day catheter removed 4 days ago and has been doing well until today. Patient states he tried to self catheter was morning with no success. Patient otherwise denies fever, chills, vomiting, dysuria, hematuria. Symptoms are mild in severity. No current modifying factors. - History of Current Complaint Chief Complaint: EDUrogenitalProblems Time Seen by Provider: 09/16/19 08:16 Stated Complaint: RETAINING URINE PER PT Hx Obtained From: Patient Pain Intensity: 8 - Additional Pertinent History Primary Care Physician: MECCA - Allergy/Home Medications Allergies/Adverse Reactions: Allergies Allergy/AdvReac Type Severity Reaction Status Date / Time oxycodone Allergy Unknown Verified 09/16/19 08:09 Reaction Details Penicillins Allergy Thrush Verified 09/16/19 08:09 prednisone Allergy Unknown Verified 09/16/19 08:09 Reaction Details shellfish derived Allergy Joint Pain Verified 09/16/19 08:09 Home Medications: Home Medications Ibuprofen TAB* [Motrin TAB* 400 MG] 400 mg PO BID PRN 09/16/19 [History Confirmed 09/16/19] PMH/Surg Hx/FS Hx/Imm Hx Previously Healthy: Yes Endocrine/Hematology History: Reports: Hx Thyroid Disease Respiratory History: Reports: Hx Asthma, Hx Chronic Obstructive Pulmonary Disease (COPD), Hx Lung Cancer - Jul 2017, s/p radiation at [facility] , Hx Pneumonia, Other Respiratory Problems/Disorders - PNX History: Denies: Hx Dialysis Sensory History: Reports: Hx Contacts or Glasses, Hx Hearing Aid - left at home Denies: Hx Legally Blind Opthamlomology History: Reports: Hx Contacts or Glasses Denies: Hx Legally Blind Neurological History: Reports: Other Neuro Impairments/Disorders - neuropathy Denies: Hx Developmental Delay Psychiatric History: Denies: Hx Autism - Cancer History Cancer Type, Location and Year: Lung CA diagnosed in July 2017 at the [facility]. Hx Radiation Therapy: Yes Hx Palliative Cancer Treatment: No - Surgical History Surgery Procedure, Year, and Place: thyroidectomy. appendectomy Infectious Disease History: No Infectious Disease History: Denies: Traveled Outside the US in Last 30 Days - Family History Known Family History: Positive: Other - Colon CA-mother Negative: Cardiac Disease, Blood Disorder - Social History Occupation: Retired Lives: With Family Alcohol Use: None Hx Substance Use: No Substance Use Type: Reports: None Hx Tobacco Use: Yes Smoking Status (MU): Light Every Day Tobacco Smoker Type: Cigarettes Review of Systems Constitutional: Negative Negative: Fever, Chills Genitourinary: Other - bladder pressure. Negative: dysuria, flank pain, hematuria All Other Systems Reviewed And Are Negative: Yes Physical Exam Triage Information Reviewed: Yes Vital Signs On Initial Exam: Initial Vitals Temp Pulse Resp BP Pulse Ox 97.9 F 92 19 162/100 96 09/16/19 08:06 09/16/19 08:06 09/16/19 08:06 09/16/19 08:06 09/16/19 08:06 Vital Signs Reviewed: Yes Appearance: Positive: Pain Distress - Pt. lying in bed, appears uncomfortable. Nontoxic. Skin: Positive: Warm, Dry Head/Face: Positive: Normal Head/Face Inspection Eyes: Positive: Normal, EOMI, QAMAR Neck: Positive: Supple Abdomen Description: Positive: Other: - Bladder distended. Neurological: Positive: Normal, CN Intact II-III Psychiatric: Positive: Affect/Mood Appropriate Procedures - Sedation Patient Received Moderate/Deep Sedation with Procedure: No Diagnostics - Vital Signs Vital Signs Temp Pulse Resp BP Pulse Ox 09/16/19 08:06 97.9 F 92 19 162/100 96 - Laboratory Lab Statement: Any lab studies that have been ordered have been reviewed, and results considered in the medical decision making process. GIGU Course/Dx - Course Course Of Treatment: Patient with BPH and urinary retention. Coud Day catheter placed and retention was relieved. Patient feeling much better. Urinalysis is nitrite positive without bacteria, palpation without any urinary symptoms, we'll send for culture. Patient will call his urologist today for close follow-up. Patient understands and agrees with plan. - Diagnoses Differential Diagnoses - Male: BPH, Urinary Tract Infection Provider Diagnoses: Urinary retention Discharge ED - Sign-Out/Discharge Documenting (check all that apply): Patient Departure - Discharge Plan Condition: Improved Disposition: HOME Patient Education Materials: Urinary Retention in Men (ED) Referrals: Marlyn Arnett [Primary Care Provider] - Additional Instructions: Please call your urologist today for close follow up appointment Return to ER if symptoms change or worsen - Billing Disposition and Condition Condition: IMPROVED Disposition: Home - Attestation Statements Provider Attestation: I was available for consultation for this patient. I did not evaluate the patient or participate in any medical decision making or disposition decisions unless I am specifically named in the chart as having consulted on the patient. If I have consulted on the patient, please see my own ED note on the patient encounter. Nicki Mcmillan MD
[2019-09-16 09:11] LABS: Urine Appearance Clear; Urine Bilirubin Negative (Negative); Urine Blood 2+ (Negative); Urine Color Yellow; Urine Glucose Negative (Negative); Urine Ketones Negative (Negative); Urine Nitrite Positive (Negative); Urine Protein Negative (Negative); Urine Specific Gravity 1.005 (1.010-1.030); Urine Urobilinogen Negative (Negative)
[2019-09-16 09:12] LABS: Urine Bacteria Absent (Absent); Urine Red Blood Cell 2+(6-10/hpf) (Absent); Urine White Blood Cell 3+(>20/hpf) (Absent)
[2019-09-16 09:32] VITALS: BP 99/58
--- NOTE | 2019-09-19 07:21 | ED ---
Imaging and Labs Follow Up Follow Up Type: Labs/Cultures Labs/Culture Result: Klebsiella pneumonia urine culture final Patient Communication/Plan: Patient here for urinary retention, no other urinary tract infection symptoms Patient Communication/Plan: Patient was not placed on antibiotics prior to discharge, colony count 50-75,000 , will not treat at this time Patient to follow up with PCP Provider Diagnoses: Urinary retention
== END 2019-09-16 09:35 | disposition home or self-care (01) ==
LOC: ED 08:06
DX: N40.1 Benign prostatic hyperplasia with lower urinary tract symptoms (principal); R33.8 Other retention of urine; E03.9 Hypothyroidism, unspecified; J44.9 Chronic obstructive pulmonary disease, unspecified; Z85.118 Personal history of other malignant neoplasm of bronchus and lung; F17.210 Nicotine dependence, cigarettes, uncomplicated
CPT/HCPCS: 81003; 81015; 87077; 87086; 87186; 99282

== ENCOUNTER 2019-11-12 17:33 | Inpatient (IN) | payer OTHER ==
--- NOTE | 2019-11-12 18:54 | ED ---
Shortness of Breath - HPI Summary HPI Summary: Patient with history of COPD complains of shortness of breath and decreased O2 sats at home between 80 and 89%. Denies fever, cough, sore throat, CP, N/3/D, abdominal pain, change in urine, change in BM. Medical history COPD, BPH, HLD, hypothyroid. No home O2. - History of Current Complaint Chief Complaint: EDShortnessOfBreath Time Seen by Provider: 11/12/19 18:52 Hx Obtained From: Patient Onset/Duration: Sudden Onset, Lasting Hours Timing: Constant Current Severity: Moderate Dyspnea At: Exertion Alleviating Factors: Nothing Associated Signs & Symptoms: Negative - Allergy/Home Medications Allergies/Adverse Reactions: Allergies Allergy/AdvReac Type Severity Reaction Status Date / Time oxycodone Allergy Unknown Verified 11/12/19 17:39 Reaction Details Penicillins Allergy Thrush Verified 11/12/19 17:39 prednisone Allergy Unknown Verified 11/12/19 17:39 Reaction Details shellfish derived Allergy Joint Pain Verified 11/12/19 17:39 Home Medications: Home Medications Albuterol HFA INHALER* [Ventolin HFA Inhaler*] 2 puff INH Q4H PRN #1 mdi [Rx Confirmed 11/12/19] Levothyroxine TAB* [Synthorid 112 MCG TAB*] 112 mcg PO DAILY 04/24/18 [History Confirmed 11/12/19] Finasteride TAB* [Proscar TAB*] 5 mg PO DAILY 12/26/18 [History Confirmed ] Hydroxychloroquine TAB* [Plaquenil TAB*] 200 mg PO BID 12/26/18 [History Confirmed 11/12/19] Tamsulosin CAP* [Flomax CAP*] 0.4 mg PO DAILY 12/26/18 [History Confirmed ] Tiotropium Brom/Olodaterol [Stiolto Respimat Inh [place] (60 puff)] 1 cap INH DAILY 12/26/18 [History Confirmed 11/12/19] Ibuprofen TAB* [Motrin TAB* 400 MG] 400 mg PO BID PRN 09/16/19 [History Confirmed 11/12/19] PMH/Surg Hx/FS Hx/Imm Hx Endocrine/Hematology History: Reports: Hx Thyroid Disease Cardiovascular History: Denies: Hx Pacemaker/ICD Respiratory History: Reports: Hx Asthma, Hx Chronic Obstructive Pulmonary Disease (COPD), Hx Lung Cancer - Jul 2017, s/p radiation at [facility] , Hx Pneumonia, Other Respiratory Problems/Disorders - PNX History: Denies: Hx Dialysis Sensory History: Reports: Hx Contacts or Glasses, Hx Hearing Aid - left at home Denies: Hx Legally Blind Opthamlomology History: Reports: Hx Contacts or Glasses Denies: Hx Legally Blind EENT History: Denies: Hx Deafness Neurological History: Reports: Other Neuro Impairments/Disorders - neuropathy Denies: Hx Developmental Delay Psychiatric History: Denies: Hx Autism - Cancer History Cancer Type, Location and Year: Lung CA diagnosed in July 2017 at the [facility]. Hx Radiation Therapy: Yes Hx Palliative Cancer Treatment: No - Surgical History Surgery Procedure, Year, and Place: thyroidectomy. appendectomy - Immunization History Immunizations Up to Date: Yes Infectious Disease History: No Infectious Disease History: Denies: Traveled Outside the US in Last 30 Days - Family History Known Family History: Positive: Other - Colon CA-mother Negative: Cardiac Disease, Blood Disorder - Social History Alcohol Use: None Hx Substance Use: No Substance Use Type: Reports: None Hx Tobacco Use: Yes Smoking Status (MU): Light Every Day Tobacco Smoker Type: Cigarettes Review of Systems Constitutional: Negative Eyes: Negative ENT: Negative Cardiovascular: Negative Positive: Shortness Of Breath Gastrointestinal: Negative Genitourinary: Negative Musculoskeletal: Negative Skin: Negative Neurological/Mental Status: Negative Psychological: Normal All Other Systems Reviewed And Are Negative: Yes Physical Exam Triage Information Reviewed: Yes Vital Signs On Initial Exam: Initial Vitals Temp Pulse Resp BP Pulse Ox 98.3 F 81 20 166/86 84 11/12/19 17:35 11/12/19 17:35 11/12/19 17:35 11/12/19 17:35 11/12/19 17:35 Vital Signs Reviewed: Yes Appearance: Positive: Well-Appearing Skin: Positive: Warm Head/Face: Positive: Normal Head/Face Inspection Eyes: Positive: Normal ENT: Positive: Normal ENT inspection Neck: Positive: Supple Respiratory/Lung Sounds: Positive: Decreased Breath Sounds, Wheezes Cardiovascular: Positive: Normal Abdomen Description: Positive: Nontender Musculoskeletal: Positive: Normal Neurological: Positive: Normal Psychiatric: Positive: Normal AVPU Assessment: Alert - [place] Coma Scale Best Eye Response: 4 - Spontaneous Best Motor Response: 6 - Obeys Commands Best Verbal Response: 5 - Oriented Coma Scale Total: 15 Procedures - Sedation Patient Received Moderate/Deep Sedation with Procedure: No Diagnostics - Vital Signs Vital Signs Temp Pulse Resp BP Pulse Ox 11/12/19 18:40 71 134/74 95 11/12/19 18:09 78 147/93 96 11/12/19 17:35 98.3 F 81 20 166/86 84 - Laboratory Result Diagrams: 11/12/19 19:03 11/12/19 19:03 Lab Statement: Any lab studies that have been ordered have been reviewed, and results considered in the medical decision making process. Course/Dx - Course Course Of Treatment: Patient with history of COPD complains of shortness of breath and decreased O2 sats at home between 80 and 89%. Denies fever, cough, sore throat, CP, N/3/D, abdominal pain, change in urine, change in BM. Medical history COPD, BPH, HLD, hypothyroid. No home O2. Patient O2 sats 88% even on O2 2L after DuoNeb 3. Vital signs otherwise within normal limits. Labs unremarkable. Chest x-ray possible infiltrate. Urine positive for UTI. EKG sinus rhythm, rate of 74, normal P axis. Admitted to hospitalist. - Diagnoses Provider Diagnoses: Hypoxia, COPD exacerbation, Pneumonia, UTI (urinary tract infection) Discharge ED - Sign-Out/Discharge Documenting (check all that apply): Patient Departure - Discharge Plan Condition: Stable Disposition: ADMITTED TO [facility] - Billing Disposition and Condition Condition: STABLE Disposition: Admitted to [facility]
[2019-11-12] MEDS ORDERED: Albuterol/Ipratropium NEB.SOL* Albuterol 2.5 MG/Ipratropium 0.5 MG 3 ML INH ONE ×3 (19:04→20:00)
[2019-11-12 19:15] LABS: ABS Eosinophils 0.8 10^3/ul (0-0.6); ABS Lymphocytes 0.9 10^3/ul (1.0-4.8); ABS Monocytes 0.9 10^3/ul (0-0.8); ABS Neutrophils 5.5 10^3/ul (1.5-7.7); Eosinophil % 9.6 %; Hematocrit 42 % (42-52); Lymphocyte % 11.3 %; Mean Corpuscular HGB Conc 33 g/dL (31-36); Mean Corpuscular Hemoglobin 29 pg (27-31); Mean Corpuscular Volume 87 fL (80-94); Mean Platelet Volume 9.1 fL (7.4-10.4); Platelet Count 226 10^3/uL (150-450); Red Blood Count 4.86 10^6 /uL (4.18-5.48); Red Cell Distribution Width 14 % (10-15); White Blood Count 8.1 10^3/uL (3.5-10.8)
[2019-11-12 19:31] LABS: Albumin 3.9 g/dL (3.2-5.2); Albumin/Globulin Ratio 1.7 (1-3); BUN/Creatinine Ratio 29.9 (8-20); C Reactive Protein 2.46 mg/L (<8.01); Calcium 8.8 mg/dL (8.6-10.3); EGFR African American 140.3 (>60); Globulin 2.3 g/dL (2-4); Potassium 3.7 mmol/L (3.5-5.0); Total Bilirubin 0.3 mg/dL (0.2-1.0); Total Protein 6.2 g/dL (6.4-8.9)
[2019-11-12] MEDS ORDERED: Albuterol/Ipratropium NEB.SOL* Albuterol 2.5 MG/Ipratropium 0.5 MG 3 ML ONE (20:12)
[2019-11-12 20:59] LABS: Urine Appearance Cloudy; Urine Bilirubin Negative (Negative); Urine Blood 2+ (Negative); Urine Color Yellow; Urine Glucose Negative (Negative); Urine Ketones Negative (Negative); Urine Nitrite Positive (Negative); Urine Protein 1+(30 mg/dL) (Negative); Urine Specific Gravity 1.025 (1.010-1.030); Urine Urobilinogen Negative (Negative)
[2019-11-12 21:01] LABS: Urine Bacteria 3+ (Absent); Urine Red Blood Cell 2+(6-10/hpf) (Absent); Urine White Blood Cell 3+(>20/hpf) (Absent)
[2019-11-12] MEDS ORDERED: Azithromycin 500 mg/250 ml NS 500 MG/250 ML BAG IVPB ONE (21:58)
[2019-11-12] MEDS ORDERED: cefTRIAXone(*) 1 GM in NS 0.9% 50 ML* 50 ML IVPB ONE (22:05)
[2019-11-12] MEDS ORDERED: Albuterol HFA INHALER* 8 gm MDI INH PRN (23:27)
[2019-11-13] MEDS ORDERED: Ondansetron INJ* 2 MG/ML VIAL IV PRN (00:15)
[2019-11-13] MEDS ORDERED: Al Hydrox/Mg Hydrox/Simet LIQ* 30 ML UDC PO PRN (00:15)
[2019-11-13] MEDS ORDERED: Acetaminophen TAB* 325 MG PO PRN (00:15)
[2019-11-13] MEDS: methylPREDNISolone SOD 40 MG* 1 ML VIAL IV SCH ×2 (04:26→12:31)
[2019-11-13] MEDS: Levothyroxine TAB* 112 MCG TAB PO SCH (04:26)
[2019-11-13] MEDS ORDERED: Acetylcysteine INHALATION SOL* 200 MG/ML NEB.SOLN 10 ML INH ONE (05:31)
[2019-11-13] MEDS ORDERED: Acetylcysteine INHALATION SOL* 200 MG/ML NEB.SOLN 10 ML INH PRN (05:33)
[2019-11-13] MEDS: Tiotropium Brom/Olodaterol MDI INH SCH (08:32)
[2019-11-13] MEDS: Docusate CAP* 100 MG PO SCH ×3 (09:14→19:26)
[2019-11-13] MEDS: Tamsulosin CAP* 0.4 MG PO SCH (09:14)
[2019-11-13] MEDS: Finasteride TAB* 5 MG PO SCH (09:14)
[2019-11-13] MEDS: Enoxaparin(*) 40 MG/0.4 ML SYR SUBCUT SCH (09:14)
[2019-11-13] MEDS: Hydroxychloroquine TAB* 200 MG PO SCH ×2 (09:14→19:26)
--- NOTE | 2019-11-13 11:44 | PN ---
Subjective Date of Service: 11/13/19 Interval History: Mr. Edwards states that he presented to ER with c/o "I couldn't breath." He reports that he has since had nebulizers and abx, whccih has decreased his dyspnea. He no longer has dysnpea at rest, but has not been up ambulating. He continues to have a productive cough and chest congestion, but denies, fevers, chills, wheeze. He has a chronic Antonio for last 2.5 months and follows with [facility] admin. at [facility]. Objective Active Medications: Acetaminophen (Tylenol Tab*) 650 mg PO Q4H PRN PRN Reason: MILD PAIN or TEMP > 100.4 Acetylcysteine (Mucomyst Inhalation [place]*) 400 mg INH [id number] AWAKE PRN PRN Reason: CONGESTION Al Hydrox/Mg Hydrox/Simethicone (Maalox Plus*) 30 ml PO Q6H PRN PRN Reason: INDIGESTION Albuterol (Ventolin Hfa Inhaler*) 2 puff INH Q4H PRN PRN Reason: SOB/WHEEZING Last Admin: 11/13/19 01:54 Dose: 2 puff Docusate Sodium (Colace Cap*) 100 mg PO BID [facility] Last Admin: 11/13/19 09:14 Dose: 100 mg Enoxaparin Sodium (Lovenox(*)) 40 mg SUBCUT Q24H [facility] Last Admin: 11/13/19 09:14 Dose: 40 mg Finasteride (Proscar Tab*) 5 mg PO DAILY [facility] Last Admin: 11/13/19 09:14 Dose: 5 mg Hydroxychloroquine Sulfate (Plaquenil Tab*) 200 mg PO BID [facility] Last Admin: 11/13/19 09:14 Dose: 200 mg Azithromycin (Zithromax 500 Mg/250 Ml) 500 mg in 250 mls @ 250 mls/hr IVPB Q24H [facility] Ceftriaxone Sodium 1 gm/ (Sodium Chloride) 50 mls @ 100 mls/hr IVPB Q24H [facility] Levothyroxine Sodium (Synthroid Tab*) 112 mcg PO DAILY@0600 [facility] Last Admin: 11/13/19 04:26 Dose: 112 mcg Methylprednisolone Sodium Succinate (Solu-Medrol 40 Mg) 40 mg IV Q8H [facility] Last Admin: 03/11/20 04:26 Dose: 40 mg Ondansetron HCl (Zofran Inj*) 4 mg IV Q4H PRN PRN Reason: NAUSEA/VOMITING Tamsulosin HCl (Flomax Cap*) 0.4 mg PO DAILY [facility] Last Admin: 11/13/19 09:14 Dose: 0.4 mg Tiotropium [place]/Olodaterol (Stiolto Respimat Inh [place] (60 Puff)) 1 puff INH DAILY [facility] Last Admin: 11/13/19 08:32 Dose: 1 puff Vital Signs: Temp Pulse Resp BP Pulse Ox 98.4 F 71 18 133/74 98 11/13/19 07:15 11/13/19 07:15 11/13/19 07:15 11/13/19 07:15 11/13/19 07:15 Oxygen Devices in Use Now: Nasal Cannula Appearance: Mr. Edwards is an elderly, chronically ill-appearing white male who is sitting up in bed; he is breathing comfortably on room air. Eyes: No Scleral Icterus, PERRLA Ears/Nose/Mouth/Throat: NL Teeth, Lips, Gums, Clear Oropharnyx, Mucous Membranes Moist Neck: NL Appearance and Movements; NL JVP, Trachea Midline Respiratory: Symmetrical Chest Expansion and Respiratory Effort, - - barrel chest; breath sounds diminished throughout; LLL with faint rhonchi and end- expiratory wheeze Cardiovascular: NL Sounds; No Murmurs; No JVD, RRR, No Edema Abdominal: NL Sounds; No Tenderness; No Distention, No Hepatosplenomegaly, - - catheter with leg bag in place Extremities: No Edema, No Clubbing, Cyanosis Neurological: Alert and Oriented x 3 Result Diagrams: 11/12/19 19:03 11/12/19 19:03 Assess/Plan/Problems-Billing Assessment: 73 yom PMHx COPD, lung cancer s/p resection, tobacco abuse presents with dyspnea , productive cough, wheeze and was found to have COPD exacerbation and UTI. - Patient Problems (1) COPD exacerbation Comment: -presented with dyspnea and wheeze; minimal wheeze localized to LLL -started on IV solumedrol- will transition to PO taper in a.m. -continue Duonebs, azithromycin -no longer requiring O2; will get ambulatory sats -flutter valve, guaifenesin (2) UTI (urinary tract infection) Comment: -UA: 2+ LE, + nitrates, 3+ bacteria -UC pending; h/o Klebsiella UTI -continue ceftriaxone -plan to replace antonio today (3) Abnormal chest CT Comment: -CT shows triangular opacity in R post lung with tethering, possibly site of previously treated lung ca; 2 small nodules with recommended follow up CT in 6- 12 months -patient with continued tobacco use -this should be followed by PCP (4) BPH (benign prostatic hyperplasia) Comment: -with chronic antonio in place -[facility] -continue finasteride and tamsulosin (5) Hypothyroidism Comment: -continue levothyroxine (6) DVT prophylaxis Comment: -enoxaparin (7) Full code status Status and Disposition: Inpatient. Discharge when stable.
[2019-11-13] MEDS: guaiFENesin ER TAB 600 MG PO SCH ×2 (12:31→19:25)
--- NOTE | 2019-11-13 13:22 | HP ---
HISTORY AND PHYSICAL: DATE OF ADMISSION: 11/13/19 HISTORY OF PRESENT ILLNESS: This is a 73-year-old male with past medical history significant for COPD, BPH, hyperlipidemia, hypothyroidism, not on home oxygen, presents with chief complaint of shortness of breath and decreased O2 saturation at home. The patient said he noticed he had been using his inhaler more. He said he had breakfast today and went with his cousins to look at calves and had a hard time breathing while walking across the field to look at the calves. He said initially there was no cough, then noticed phlegm this morning. He said he feels as if he ran a marathon and feels panting for air. There was increased wheezing more than his baseline. He denied fever. PAST MEDICAL HISTORY: 1. COPD. 2. Cancer of right upper lung, status post resection. 3. Hypertension. 4. Hypothyroidism. 5. Rheumatoid arthritis. 6. BPH. PAST SURGICAL HISTORY: 1. Appendectomy. 2. Thyroidectomy. 3. Right upper lobe lung lobectomy. 4. Right lung reinflation. HOME MEDICATIONS: 1. Levothyroxine 112 mcg p.o. daily. 2. Proscar 5 mg p.o. daily. 3. Plaquenil 200 mg p.o. b.i.d. 4. Tamsulosin 0.4 mg p.o. daily. 5. Respimat Inhaler spray 1 INH daily. 6. Albuterol 2 puffs INH q.4 p.r.n. for wheezing and shortness of breath. ALLERGIES: OXYCODONE, reaction unknown; PENICILLIN, reaction thrush; PREDNISONE , reaction unknown, but the patient says he still takes PREDNISONE, but he does not feel too good about it that, if he has no option he still does take PREDNISONE; SHELL FISH derived allergy, joint pains. FAMILY HISTORY: Positive for diabetes mellitus and hypertension as well as colon cancer. SOCIAL HISTORY: The patient is a smoker, half pack per day. Denied alcohol. Denied use of illicit drugs. is . Has 2 children, a son and a daughter. Lives with his son. REVIEW OF SYSTEMS: Constitutional: Negative. Eyes: Negative. ENT: Negative. Cardiovascular: Positive for shortness of breath. Gastrointestinal: Negative. Genitourinary: Negative. Musculoskeletal: Negative. Skin: Negative. Neurological/mental status: Negative. Psychological: Normal. Respiratory: Positive for shortness of breath and positive for cough. PHYSICAL EXAMINATION GENERAL APPEARANCE: Well appearing, lying quietly in bed. VITAL SIGNS: Initial; temperature 98.3, pulse 81, respiratory rate 20, BP 136/ 86, pulse oximetry 84%. Repeat vitals at 1840 hours; pulse 71, blood pressure 134/74, pulse oximetry 95%. HEENT: Head and face positive atraumatic, normocephalic. Eyes: Normal. ENT: Normal ENT inspection. NECK: Supple. No lymphadenopathy. No thyromegaly. Normal range of motion. RESPIRATORY: Decreased breath sounds, positive wheeze and bibasilar crackles. CARDIOVASCULAR: S1, S2 heard. No murmurs. Regular rate and rhythm. ABDOMEN: Soft, nontender, nondistended. Normal bowel sounds in all four quadrants. No palpable mass. MUSCULOSKELETAL: Normal range of motion. NEUROLOGICAL: Awake and alert. CN II through CN XII intact. No focal deficits. PSYCHIATRIC: Normal mood and normal affect. Speech normal. DIAGNOSTIC STUDIES/LAB DATA: WBC 8.1, RBC 4.86, hemoglobin 14.0, hematocrit 42 , MCV 87, MCH 29, MCHC 33, RDW 14, platelet count 226. Chemistry: Sodium 143, potassium 3.7, chloride 108, carbon dioxide 30, anion gap 5, BUN 20, creatinine 0.67, estimated GFR non- 116, BUN/creatinine ratio 29.9, glucose 106, lactic acid 0.8, calcium 8.8. Total bilirubin 0.30, AST 15, ALT 14 , alkaline phosphatase 76. Troponin 0. C-reactive protein 2.46. Total protein 6.2, albumin 3.9, globulin 2.3. Urine: Protein positive 1+, urine blood positive 2+, nitrites positive, leukocyte esterase 2+, wbc 3+, urine rbc 2 +, bacteria 3+. Appearance cloudy. Urine pH 5.0. Urine specific gravity 1.025. CT chest without contrast, impression: Severe centrilobular emphysema, triangular peripheral opacity in posterior right lung with previous infiltrate, lung cancer, recommend comparison with prior studies and correlation with clinical history. Few small nodules along the right major fissure, largest measuring 4 x 6 mm. Recommend comparison with prior studies to assess stability. If prior studies are not available, per Fleischner Society criteria, followup CT recommended in 6 to 12 months and then 18 to 24 months. Bilateral segmental lower lobe mucus plugging versus retained debris, with debris, secretions in lower trachea and bilateral mainstem bronchi. Coronary artery disease, ectatic ascending aorta measuring up to 3.8 cm. Also, noted is a triangular peripheral opacity extending to the posterior pleural surface with associated bronchiectasis. ASSESSMENT AND PLAN: A 73-year-old patient with history of chronic obstructive pulmonary disease complains of shortness of breath and decreased oxygen saturation at home between 80% and 89%. CT findings revealed mucus plug of the trachea. The patient will be admitted to the medical floor and treated for admission diagnosis of urinary tract infection, CT findings of mucus plug and bronchiectasis, chronic obstructive pulmonary disease, hypothyroidism, BPH, hyperlipidemia, and chest x-ray findings of possible infiltrate. For the urinary tract infection, the patient will be started on IV cefazolin 1 g daily. Follow up with urine culture and sensitivity. This as well will cover for any possible infiltrate ascertained on the chest x-ray. For chronic obstructive pulmonary disease, we will continue DuoNeb as needed for shortness of breath and wheezing. For BPH, the patient will continue with finasteride. For hyperlipidemia, we will continue statin. For hypothyroidism, the patient will continue with levothyroxine. DuoNeb will be scheduled until improvement. EKG revealed normal sinus rhythm at 74 with normal P-axis. Code status at this time is full code. DVT prophylaxis with Lovenox. Fluids and electrolytes: Repleted as needed. Diet is regular diet. TIME SPENT: Time spent on this admission was 60 minutes, greater than half of that time was spent [id number] with the patient obtaining my history and physical and the other half of the time was spent going over the plan of care with the patient and implementing the plan of care. Thank you very much for the opportunity to partake in the healthcare needs of this radhika gentleman. [id number]/[facility] #: [id number] RUMA
[2019-11-13] MEDS: Albuterol/Ipratropium NEB.SOL* Albuterol 2.5 MG/Ipratropium 0.5 MG 3 ML INH SCH ×3 (16:21→23:06)
[2019-11-13 18:08] LABS: Urine Appearance Cloudy; Urine Bilirubin 1+ (Negative); Urine Blood 1+ (Negative); Urine Color Yellow; Urine Glucose Negative (Negative); Urine Ketones Negative (Negative); Urine Nitrite Negative (Negative); Urine Protein Negative (Negative); Urine Specific Gravity 1.029 (1.010-1.030); Urine Urobilinogen Negative (Negative)
[2019-11-13 18:48] LABS: Urine Bacteria 1+ (Absent); Urine Red Blood Cell Trace(0-2/hpf) (Absent); Urine Squamous Epithelial Cell Present (Absent); Urine White Blood Cell 3+(>20/hpf) (Absent)
[2019-11-13] MEDS ORDERED: cefTRIAXone(*) 1 GM in NS 0.9% 50 ML* 50 ML IVPB SCH (22:30)
[2019-11-13] MEDS ORDERED: Azithromycin 500 mg/250 ml NS 500 MG/250 ML BAG IVPB SCH (23:00)
[2019-11-13] MEDS ORDERED: Azithromycin IV(*) 250 MG in NS 0.9% 250 ML* 250 ML IVPB SCH (23:00)
[2019-11-14] MEDS: Albuterol/Ipratropium NEB.SOL* Albuterol 2.5 MG/Ipratropium 0.5 MG 3 ML INH SCH (03:39)
[2019-11-14] MEDS: Levothyroxine TAB* 112 MCG TAB PO SCH (05:53)
[2019-11-14] MEDS: Tiotropium Brom/Olodaterol MDI INH SCH ×2 (06:25→10:55)
[2019-11-14] MEDS: Mometasone/Formoter 200/5 MDI INH SCH ×2 (06:25→10:55)
[2019-11-14 06:42] LABS: ABS Lymphocytes 1.1 10^3/ul (1.0-4.8); ABS Monocytes 1.5 10^3/ul (0-0.8); ABS Neutrophils 11.2 10^3/ul (1.5-7.7); Hematocrit 41 % (42-52); Hemoglobin 13.4 g/dL (14.0-18.0); Lymphocyte % 7.9 %; Mean Corpuscular HGB Conc 33 g/dL (31-36); Mean Corpuscular Hemoglobin 29 pg (27-31); Mean Corpuscular Volume 87 fL (80-94); Mean Platelet Volume 9.9 fL (7.4-10.4); Platelet Count 210 10^3/uL (150-450); Red Blood Count 4.68 10^6 /uL (4.18-5.48); Red Cell Distribution Width 15 % (10-15); White Blood Count 13.8 10^3/uL (3.5-10.8)
[2019-11-14 06:50] LABS: BUN/Creatinine Ratio 30.4 (8-20); Calcium 8.8 mg/dL (8.6-10.3); EGFR African American 172.6 (>60); EGFR Non-African American 142.6 (>60); Potassium 3.9 mmol/L (3.5-5.0)
[2019-11-14] MEDS ORDERED: Albuterol/Ipratropium NEB.SOL* Albuterol 2.5 MG/Ipratropium 0.5 MG 3 ML INH SCH (07:00)
[2019-11-14] MEDS: guaiFENesin ER TAB 600 MG PO SCH (09:15)
[2019-11-14] MEDS: Enoxaparin(*) 40 MG/0.4 ML SYR SUBCUT SCH (09:16)
[2019-11-14] MEDS: Finasteride TAB* 5 MG PO SCH (09:16)
[2019-11-14] MEDS: Hydroxychloroquine TAB* 200 MG PO SCH (09:16)
[2019-11-14] MEDS: Tamsulosin CAP* 0.4 MG PO SCH (09:16)
[2019-11-14] MEDS: Docusate CAP* 100 MG PO SCH (09:16)
[2019-11-14 12:00] VITALS: BP 107/53
--- NOTE | 2019-11-14 21:07 | DS ---
CC: Marlyn Arnett NP; [facility] * DISCHARGE SUMMARY: DATE OF ADMISSION: 11/13/19 DATE OF DISCHARGE: 11/14/19 PRIMARY CARE PROVIDER: Marlyn Arnett NP; [facility]. ATTENDING PHYSICIAN: Dr. Debra Mcdonald * (dictated by VANE Ospina). PRIMARY DIAGNOSES: 1. Chronic obstructive pulmonary disease exacerbation. 2. Urinary tract infection. 3. Abnormality on lung CT: Tethering, two pulmonary nodules. 4. Acute hypoxic respiratory failure. SECONDARY DIAGNOSES: 1. Chronic obstructive pulmonary disease. 2. Hypertension. 3. Hypothyroidism. 4. Benign prostatic hypertrophy. 5. Rheumatoid arthritis. 6. Right upper lung cancer, status post resection. DISCHARGE MEDICATIONS: Home medications: 1. Albuterol HFA inhaler 2 puffs inhalation q.4 hours p.r.n. 2. Finasteride 5 mg p.o. daily. 3. Hydrochloroquine 200 mg p.o. b.i.d. 4. Ibuprofen 400 mg p.o. b.i.d. 5. Levothyroxine 112 mcg p.o. daily. 6. Tamsulosin 0.4 mg p.o. daily. 7. Tiotropium/olodaterol 1 inhalation daily. New home medications: 1. Cefpodoxime 200 mg p.o. q.12 hours. 2. Guaifenesin 1200 mg p.o. b.i.d. 3. Mometasone/formoterol 200/5 two puff inhalation b.i.d. 4. Prednisone taper starting at 50 mg, decreased by 10 mg q.5 days until prescription finish. STUDIES WHILE IN THE HOSPITAL: 1. Chest x-ray, impression: Hyperinflation consistent with COPD, no active cardiopulmonary disease. 2. CT chest without, impression: Severe centrilobular emphysema. Triangular peripheral opacity in the posterior right lung with tethering of adjacent structures, could represent site of previously treated lung cancer, recommend comparison with prior studies and correlation with clinical history. Two small nodules along the right major fissure, largest measuring 4 x 6 mm. Recommend comparison with prior studies to assess stability. If prior studies are not available, followup CT recommended in 6 to 12 months and then in 18 to 24 months. Bilateral segment lower lobe mucus plugging versus retained debris, with debris/secretions in lower trachea and bilateral mainstem bronchi. Coronary artery disease. Ectatic ascending aorta measuring up to 3.8 cm. Assessment limited by lack of IV contrast. HISTORY OF PRESENT ILLNESS/HOSPITAL COURSE: Mr. Edwards is a 73-year-old male with a past medical history of COPD, history of right upper lung cancer, status post resection, BPH with chronic Day who presented to the ER on 11/13/19 with complaints of shortness of breath. He presented to the ER. Chest x-ray shows COPD. CT of the lung shows tethering and 2 pulmonary nodules. The patient was found to have wheezing on exam. He was also noted to have an abnormal urinalysis with 2+ LE, positive nitrites, 3+ bacteria. The patient was admitted to the hospital and started on ceftriaxone and IV prednisone. The patient was eventually transitioned to oral prednisone and tolerated this well. He was initially on supplemental oxygen, but was weaned off; ambulatory oxygen saturation was within normal limits without oxygen. The patient again has a chronic Day which was changed out for a new Day on 11/13/19. By the time of discharge, the patient reports he is feeling well, he continues to have productive cough without fever or wheezing. He does feel that his lungs are congested. He denies abdominal pain, nausea, vomiting, diarrhea, constipation, myalgias, or arthralgias. On the day of discharge, he is noted to have a mild leukocytosis which is presumed to be from steroid use. Again, he is stable and afebrile. Mr. Edwards is stable for discharge home. Blood cultures were obtained that showed no growth to date. Urine culture is pending at the time of discharge. The patient does have a history of klebsiella UTI which is sensitive to third generation cephalosporin, which the patient has received during this hospitalization and which he will be discharged home on. Again, we are awaiting urine cultures at this time. PHYSICAL EXAMINATION: General: Mr. Edwards is a well-developed, well-nourished, chronically ill appearing elderly white male who is sitting up in bed. He is breathing comfortably on room air and appears to be in no acute distress. HEENT : Normocephalic, atraumatic. PERRL. Extraocular movements are intact. Sclerae are nonicteric without injection. Hearing is grossly intact. Oral mucous membranes are mildly dry. There are no lesions in the oral mucosa. Tongue is at midline. The palate elevates symmetrically. Cardiovascular: Regular rate and rhythm with S1, S2 present. Heart sounds are distant with barrel-shaped chest. No murmurs, rubs, clicks, or gallops. There is no JVD or peripheral edema. Pulmonary: Symmetrical chest expansion. No use of accessory muscles. Breath sounds diminished throughout bilaterally without rhonchi, wheeze, or rales. Positive digital clubbing. Barrel-shaped chest. Abdomen: Bowel sounds in all quadrants. Soft, nontender to palpation. Neuro: The patient is awake. He is alert and oriented x3. Cranial nerves II through XII are grossly intact. He moves all of his extremities. DISCHARGE PLAN: Mr. Edwards will be discharged to home. CONDITION: Fair. DIET: Heart-healthy. ACTIVITY: As tolerated. MEDICATIONS: 1. Continue cefpodoxime b.i.d. x14 days. 2. Prednisone taper: 50 mg p.o. daily x4 days starting tomorrow, then decrease by 10 mg q.5 days. 3. Guaifenesin as needed for cough. 4. Continue Dulera daily as prescribed. EDUCATION: 1. Continue smoking cessation. 2. Follow up with primary care provider in 4 to 7 days, discuss recent hospitalization, abnormality on chest CT, possible Pulmonology referral. 3. Follow up with urologist at [facility] for continued management of catheter and BPH. 4. Return to the ER or nearest hospital if you experience any return or worsening of symptoms, increased cough, fever, chills, sweats, decreased urinary output, bloody urine, flank/kidney pain. Return for a chest pain or discomfort, shortness of breath, dizziness, lightheadedness, loss of consciousness, or any other worrisome signs or symptoms. This is a summarized report of a complex medical history and hospital stay. For further details, please see the entire medical record. TIME SPENT: Approximately 35 minutes was spent on this discharge, greater than half that time was spent [id number] with the patient discussing discharge plans and instructions. VANE SANDERSON [id number]/[facility] #: [id number] RUMA
== END 2019-11-14 13:15 | disposition home or self-care (01) | DRG 190 ==
LOC: ED 17:33 → MED 11-13 00:15
PROVIDERS: ADMIT Family Medicine; ATTEND Internal Medicine
DX: J44.1 Chronic obstructive pulmonary disease with (acute) exacerbation (principal); J96.01 Acute respiratory failure with hypoxia; N39.0 Urinary tract infection, site not specified; B96.1 Klebsiella pneumoniae [K. pneumoniae] as the cause of diseases classified elsewhere; R91.8 Other nonspecific abnormal finding of lung field; I10 Essential (primary) hypertension; E03.9 Hypothyroidism, unspecified; N40.0 Benign prostatic hyperplasia without lower urinary tract symptoms; M06.9 Rheumatoid arthritis, unspecified; E78.5 Hyperlipidemia, unspecified; F17.210 Nicotine dependence, cigarettes, uncomplicated; Z85.118 Personal history of other malignant neoplasm of bronchus and lung; Z79.51 Long term (current) use of inhaled steroids; Z79.899 Other long term (current) drug therapy; Z88.8 Allergy status to other drugs, medicaments and biological substances; Z88.6 Allergy status to analgesic agent; Z88.0 Allergy status to penicillin; Z91.013 Allergy to seafood; Z83.3 Family history of diabetes mellitus; Z82.49 Family history of ischemic heart disease and other diseases of the circulatory system; Z80.0 Family history of malignant neoplasm of digestive organs
CPT/HCPCS: 36415; 71046; 71250; 80048; 80053; 81003; 81015; 83605; 84484; 85025; 86140; 87040; 87077; 87086; 87186; 93005; 94640; 96374; 99284; A9270-GY; J0456; J0696; J1650; J2920; J3535; J7512

== ENCOUNTER 2021-07-06 08:40 | Inpatient (IN) ==
[2021-07-06] MEDS ORDERED: Albuterol/Ipratropium NEB.SOL (2.5/0.5 MG) 3 ML NEB.SOLN ONE (08:44)
[2021-07-06] MEDS ORDERED: cefTRIAXone 1 gm/50 mL NS BAG 1 GM/50 ML BAG IV ONE (08:45)
[2021-07-06] MEDS ORDERED: Azithromycin 500 mg/250 ml NS 500 MG/250 ML BAG IVPB ONE (08:45)
[2021-07-06] MEDS ORDERED: Dexamethasone IV 4 MG/ML 5 ML VIAL (20 MG) IVPB ONE (08:45)
[2021-07-06] MEDS ORDERED: Albuterol/Ipratropium NEB.SOL (2.5/0.5 MG) 3 ML NEB.SOLN INH ONE ×2 (08:45→09:02)
[2021-07-06] MEDS ORDERED: Magnesium Sulfate 2 gm BAG 2 GM/50 ML BAG IVPB ONE (08:45)
[2021-07-06 09:14] LABS: PCO2 Arterial 58 mmHg (35-45); PO2 Arterial 206 mmHg (80-100)
[2021-07-06 09:25] LABS: ABS Basophils 0.1 10^3/ul (0-0.2); ABS Eosinophils 0.4 10^3/ul (0-0.6); ABS Lymphocytes 0.5 10^3/ul (1.0-4.8); ABS Monocytes 0.6 10^3/ul (0-0.8); ABS Neutrophils 7.3 10^3/ul (1.5-7.7); Eosinophil % 4.9 %; Hematocrit 43 % (42-52); Hemoglobin 14.1 g/dL (14.0-18.0); Lymphocyte % 5.9 %; Mean Corpuscular HGB Conc 33 g/dL (31-36); Mean Corpuscular Hemoglobin 30 pg (27-31); Mean Corpuscular Volume 90 fL (80-94); Mean Platelet Volume 8.6 fL (7.4-10.4); Nucleated Red Blood Cells % 0.1; Platelet Count 175 10^3/uL (150-450); Red Blood Count 4.74 10^6 /uL (4.18-5.48); Red Cell Distribution Width 14 % (10-15)
[2021-07-06 10:17] LABS: ALT 16 U/L (7-52); AST 18 U/L (13-39); Albumin/Globulin Ratio 1.5 (1-3); Alkaline Phosphatase 56 U/L (35-149); Anion Gap 3 mmol/L (2-11); Blood Urea Nitrogen 16 mg/dL (6-24); C Reactive Protein 1.01 mg/L (<8.01); CO2 Carbon Dioxide 33 mmol/L (22-32); Calcium 9.1 mg/dL (8.6-10.3); Chloride 105 mmol/L (101-111); Globulin 2.7 g/dL (2-4); Glucose 99 mg/dL (70-100); Potassium 4.2 mmol/L (3.5-5.0); Sodium 141 mmol/L (135-145); Total Protein 6.7 g/dL (6.4-8.9)
[2021-07-06 10:19] LABS: Troponin I 0.03 ng/mL (<0.03)
[2021-07-06] MEDS ORDERED: Albuterol 2.5mg/3 ml (0.083%) NEB.SOLN INH ONE (11:06)
[2021-07-06] MEDS ORDERED: Nicotine GUM 4MG FRUIT FLAVOR PO PRN (13:40)
[2021-07-06 14:06] LABS: Rapid COVID-19 Molecular Undetected (Undetected)
[2021-07-06 14:23] LABS: Troponin I 0.06 ng/mL (<0.03)
[2021-07-06] MEDS: Enoxaparin 40 MG/0.4 ML SYR SUBCUT SCH (15:39)
[2021-07-06] MEDS: Albuterol/Ipratropium NEB.SOL (2.5/0.5 MG) 3 ML NEB.SOLN INH SCH ×2 (15:43→20:19)
[2021-07-06] MEDS: Albuterol HFA INHALER 8 gm MDI INH PRN (18:52)
[2021-07-06 19:15] LABS: Troponin I 0.05 ng/mL (<0.03)
[2021-07-06] MEDS: TROSPIUM 20 MG PO SCH (20:12)
[2021-07-07] MEDS: Albuterol/Ipratropium NEB.SOL (2.5/0.5 MG) 3 ML NEB.SOLN INH SCH ×5 (00:28→19:08)
[2021-07-07] MEDS: Albuterol HFA INHALER 8 gm MDI INH PRN ×2 (05:29→15:38)
[2021-07-07 05:58] LABS: ABS Basophils 0.1 10^3/ul (0-0.2); ABS Eosinophils 0.1 10^3/ul (0-0.6); ABS Lymphocytes 1.3 10^3/ul (1.0-4.8); ABS Monocytes 1.2 10^3/ul (0-0.8); ABS Neutrophils 7.1 10^3/ul (1.5-7.7); Eosinophil % 0.6 %; Hematocrit 42 % (42-52); Hemoglobin 13.8 g/dL (14.0-18.0); Lymphocyte % 13.7 %; Mean Corpuscular HGB Conc 33 g/dL (31-36); Mean Corpuscular Hemoglobin 30 pg (27-31); Mean Corpuscular Volume 91 fL (80-94); Mean Platelet Volume 8.8 fL (7.4-10.4); Platelet Count 196 10^3/uL (150-450); Red Blood Count 4.58 10^6 /uL (4.18-5.48); Red Cell Distribution Width 15 % (10-15); White Blood Count 9.7 10^3/uL (3.5-10.8)
[2021-07-07 06:17] LABS: Calcium 9.4 mg/dL (8.6-10.3); Potassium 4.3 mmol/L (3.5-5.0)
[2021-07-07] MEDS: Tiotropium Brom/Olodaterol MDI INH SCH (07:16)
[2021-07-07] MEDS ORDERED: cefTRIAXone 1 gm/50 mL NS BAG 1 GM/50 ML BAG IVPB SCH (09:00)
[2021-07-07] MEDS: Cholecalciferol (VIT D3) 1,000 unit TAB PO SCH (10:11)
[2021-07-07] MEDS: TROSPIUM 20 MG PO SCH ×2 (10:19→22:07)
[2021-07-07] MEDS ORDERED: Perflutren Lipid Microsphere 3 ML VIAL ONE (13:11)
[2021-07-07] MEDS: Enoxaparin 40 MG/0.4 ML SYR SUBCUT SCH (13:45)
[2021-07-07] MEDS ORDERED: Azithromycin 500 mg/250 ml NS 500 MG/250 ML BAG IVPB SCH (21:00)
[2021-07-08] MEDS: Albuterol HFA INHALER 8 gm MDI INH PRN (02:16)
[2021-07-08] MEDS: DOXYcycline 100 MG in NS 0.9% 250 ml 250 ML IVPB SCH ×2 (02:48→15:13)
[2021-07-08 06:15] LABS: ABS Lymphocytes 0.8 10^3/ul (1.0-4.8); ABS Neutrophils 6.4 10^3/ul (1.5-7.7); Eosinophil % 0.3 %; Hematocrit 38 % (42-52); Hemoglobin 12.6 g/dL (14.0-18.0); Lymphocyte % 10.2 %; Mean Corpuscular HGB Conc 33 g/dL (31-36); Mean Corpuscular Hemoglobin 30 pg (27-31); Mean Corpuscular Volume 90 fL (80-94); Mean Platelet Volume 9.1 fL (7.4-10.4); Platelet Count 163 10^3/uL (150-450); Red Blood Count 4.23 10^6 /uL (4.18-5.48); Red Cell Distribution Width 14 % (10-15); White Blood Count 8.3 10^3/uL (3.5-10.8)
[2021-07-08] MEDS ORDERED: Albuterol/Ipratropium NEB.SOL (2.5/0.5 MG) 3 ML NEB.SOLN INH PRN (06:33)
[2021-07-08 06:41] LABS: Calcium 8.6 mg/dL (8.6-10.3); Potassium 3.9 mmol/L (3.5-5.0)
[2021-07-08] MEDS: Tiotropium Brom/Olodaterol MDI INH SCH (08:14)
[2021-07-08] MEDS: Albuterol HFA INHALER 8 gm MDI INH SCH ×4 (08:14→19:37)
[2021-07-08] MEDS: Cholecalciferol (VIT D3) 1,000 unit TAB PO SCH (09:04)
[2021-07-08] MEDS: TROSPIUM 20 MG PO SCH ×2 (09:05→21:00)
[2021-07-08] MEDS: Enoxaparin 40 MG/0.4 ML SYR SUBCUT SCH (15:28)
[2021-07-09] MEDS: Albuterol HFA INHALER 8 gm MDI INH SCH ×3 (01:22→13:24)
[2021-07-09] MEDS: DOXYcycline 100 MG in NS 0.9% 250 ml 250 ML IVPB SCH ×2 (02:47→14:26)
[2021-07-09] MEDS: Tiotropium Brom/Olodaterol MDI INH SCH (07:29)
[2021-07-09] MEDS: Cholecalciferol (VIT D3) 1,000 unit TAB PO SCH (09:32)
[2021-07-09] MEDS: TROSPIUM 20 MG PO SCH (09:33)
[2021-07-09 13:55] VITALS: BP 123/66
[2021-07-09] MEDS: Enoxaparin 40 MG/0.4 ML SYR SUBCUT SCH (14:24)
== END 2021-07-09 17:30 | disposition home or self-care (01) | DRG 140 ==
LOC: ED 08:40 → MED 08:47 → SUATTDRO 17:03 → MED 17:03
PROVIDERS: ADMIT Hospitalist; ATTEND Internal Medicine